=== PATIENT | female | born 1965 | race Caucasian/White ===

== ENCOUNTER 2020-10-27 21:04 | Inpatient (IN) | payer OTHER, SELFPAY ==
[2020-10-27] VITALS (9 sets, daily range): BP systolic 110–133; BP diastolic 64–74; PULSE 100–125; RESP 17–35; TEMP 38.9; O2SAT 80–94; BMI 35.5
--- NOTE | 2020-10-27 21:21 | DI.RAD.S_ITS ---
PROCEDURE: XR CHEST 1V INDICATIONS: flu-like symptoms TECHNIQUE: One view of the chest was acquired. COMPARISON: None. FINDINGS: Surgical changes and devices: None. Lungs and pleura: Bilateral patchy and confluent opacities. Mediastinum: Mediastinal contours appear normal. Heart size is enlarged. Bones and chest wall: No suspicious bony lesions. Overlying soft tissues appear unremarkable. IMPRESSION: Bilateral opacities most consistent with pneumonia Dictated by: Ayah Bales M.D. on 10/27/2020 at 22:10 Approved by: Ayah Bales M.D. on 10/27/2020 at 22:10
[2020-10-27] MEDS: SODIUM CHLORIDE 0.9% 1,000 ML 125 ML IV (21:41)
[2020-10-27] MEDS: DEXAMETHASONE 10 MG/ML VIAL 6 MG IV (21:41)
[2020-10-27 21:43] LABS: Add Manual Diff / Slide Review NO; Basophils Absolute Auto 0 /uL (0-100); Basophils Percent Auto 0.4 % (0-2); Eosinophils Absolute Auto 0 /uL (0-450); Eosinophils Percent Auto 0.1 % (2-4); Hematocrit 36.8 % (36-46); Hemoglobin 12.6 g/dL (12.0-16.0); Lymphocytes Absolute Auto 800 /uL (1100-4500); Lymphocytes Percent Auto 7.9 % (25-40); Mean Corpuscular HGB Conc 34.2 % (30-36); Mean Corpuscular Hemoglobin 29.6 PG (26-34); Mean Corpuscular Volume 86.5 fL (80-100); Monocytes Absolute Auto 500 /uL (0-900); Monocytes Percent Auto 4.6 % (3-14); Neutrophils Absolute Auto 8600 /uL (1500-7000); Platelet Count 443 X10^3/uL (150-400); Red Blood Cell Count 4.26 X10^6/uL (4.0-5.2); Red Cell Distribution Width 13.2 % (11.6-14.8); White Blood Cell Count 9.9 X10^3/uL (4.5-11.0)
[2020-10-27 21:53] LABS: D Dimer 773 ng/mL (<230)
[2020-10-27 21:54] LABS: Alanine Aminotransferase 102 IU/L (<35); Albumin 3.5 g/dL (3.5-5.0); Albumin Globulin Ratio 1.1 (1.0-2.8); Alkaline Phosphatase 94 U/L (38-126); Aspartate Aminotransferase 102 IU/L (14-36); BUN Creatinine Ratio 18.5 (6-22); Bilirubin Total 1.2 mg/dL (0.2-1.3); Blood Urea Nitrogen 12 mg/dL (7-17); Calcium 8.4 mg/dL (8.4-10.2); Carbon Dioxide 30 mmol/L (22-32); Chloride 96 mmol/L (98-107); Creatine Kinase 489 U/L (30-135); Estimated Glomerular Filt Rate > 60.0 mL/min (>60); Globulin 3.3 g/dL (1.7-4.1); Glucose 145 mg/dL (70-100); HEMOLYSIS < 15 (0-50); Lactate (Lactic Acid) 1.8 mmol/L (0.7-2.1); Potassium 3.2 mmol/L (3.4-5.1); Sodium 134 mmol/L (137-145); Total Protein 6.8 g/dL (6.3-8.2)
[2020-10-27 21:58] LABS: Lactate Dehydrogenase 1424 U/L (313-618)
[2020-10-27] MEDS: REMDESIVIR 200 MG in SODIUM CHLORIDE 0.9% 210 ML 250 ML IV (22:00)
[2020-10-27 22:06] LABS: NT-proBNP (BNP-Adult 18+) 134 pg/mL (<125); Troponin I < 0.012 ng/mL (0.01-0.034)
[2020-10-27 22:09] LABS: CKMB % Relative Index 0.4 % (1.5-5.0); Creatine Kinase MB 1.76 ng/mL (<2.37)
[2020-10-27 22:10] LABS: Procalcitonin 0.21 ng/mL (<0.5)
[2020-10-27 22:13] LABS: C-Reactive Protein Quant 25.7 mg/dL (<1.0)
[2020-10-27 22:26] LABS: HCO3 ABG 28 mmol/L (22-26); Oxygen Saturation ABG 94 % (95-100); PO2 ABG 63 mmHg (80-100); TCO2 ABG 29 mmol/L (21-31)
[2020-10-27 22:27] LABS: Fractionated Inspired Oxygen 44
--- NOTE | 2020-10-27 22:27 | ED.SOB ---
HPI - SOB/Dyspnea General Chief Complaint: Shortness of Breath/Dyspnea Stated Complaint: sick for 9 days, + covid test 8 days ago Time Seen by Provider: 10/27/20 21:21 Source: patient Mode of arrival: Wheelchair Limitations: no limitations History of Present Illness HPI Narrative: 55-year-old female nonsmoker with no reported chronic medical history, medications presents with family in the chief complaint of worsening respiratory distress over the past few days. She had been sick for a total of about 9 days and had a positive COVID test about 8 days ago. She has been gradually worsening over that time and admits to nasal congestion, runny nose, increasing shortness of breath, dry hacking cough, body aches and fever. She denies any GI symptoms such as nausea, vomiting or diarrhea. Patient is becoming more now, struggling at home and presents for evaluation. She did not receive vaccinations for COVID-19 Related Data Allergies Allergy/AdvReac Type Severity Reaction Status Date / Time No Known Drug Allergies Allergy Verified 10/27/20 21:13 Review of Systems Review of Systems Narrative: GENERAL: See HPI HEENT: See HPI RESPIRATORY: See HPI CARDIOVASCULAR: See HPI GASTROINTESTINAL: See HPI : Denies dysuria, frequency, incontinence, hematuria, urinary retention. MUSCULOSKELETAL: denies weakness, joint pain, or bony pain SKIN: Denies rash, skin lesions, or other NEUROLOGIC: Denies weakness, headache, numbness, change in speech, confusion, seizures, incoordination. PSYCHIATRIC: No concerning psychosocial issues. 12 point review of systems is negative except for those stated above Patient History Medical History (Updated 10/28/20 @ 02:17 by SU Geiger) Pre-diabetes Surgical History (Updated 10/28/20 @ 02:17 by SU Geiger) History of hysterectomy Family History (Updated 10/28/20 @ 02:18 by SU Geiger) Mother Diabetes mellitus Father Diabetes mellitus Social History household members: spouse Smoking Status: Never smoker Smoking Status: Unknown if ever smoked alcohol intake frequency: holidays/special occasions only Substance Use Type: does not use Exam Narrative Exam Narrative: GENERAL: [55] year old patient appears stated age. Well-developed patient, in moderate distress, initial pulse ox in the low 80s with evidence of respiratory distress HEAD: Atraumatic. Normocephalic. EYES: Pupils equal round and reactive. Extraocular motions intact. No scleral icterus. No injection or drainage. ENT: Nose without bleeding, purulent drainage. Throat without erythema, tonsillar hypertrophy or exudate. Airway patent. NECK: Trachea midline. Non tender CARDIOVASCULAR: Tachycardic but regular rhythm without murmurs, gallops, or rubs. RESPIRATORY: Increased work of breathing, tachycardia, crackles throughout GASTROINTESTINAL: Abdomen soft, non-tender, nondistended. EXTREMITIES: No edema or joint tenderness. BACK: Nontender without deformity or crepitance. No flank tenderness. NEURO: AOx3. SKIN: No rash or erythema of visible areas Initial Vital Signs Initial Vital Signs: Vital Signs Temperature 102.1 F H 10/27/20 21:10 Pulse Rate 125 H 10/27/20 21:10 Respiratory Rate 17 10/27/20 21:10 Blood Pressure 110/72 10/27/20 21:10 Pulse Oximetry 80 L 10/27/20 21:10 Course Course Course Narrative: COVID-GRAM Critical Illness Risk Score from [employer] on 10/28/2020 All calculations should be rechecked by clinician prior to use RESULT SUMMARY: 229 points COVID-GRAM Risk Score 97.5 % Risk of critical illness, defined by admission to the intensive care unit (ICU), invasive ventilation, or High risk Risk group INPUTS: X-ray abnormality ?> 1 = Yes Age ?> 55 years Hemoptysis ?> 0 = No Dyspnea ?> 1 = Yes Unconsciousness ?> 0 = No Number of comorbidities ?> 0 = 0 Cancer history ?> 0 = No Neutrophil-lymphocyte ratio (NLR) ?> 11 Lactate dehydrogenase ?> 1424 U/L Direct bilirubin ?> 1.2 mg/dL Orders Ordered: ED Orders 10/27/20 21:21 XR chest 1V Stat EKG-12 Lead Stat 10/27/20 21:30 C-Reactive Protein Quant Stat Complete Blood Count AUTO DIFF Stat Comprehensive Metabolic Panel Stat D Dimer Stat Ferritin Stat Lactate (Lactic Acid) Stat Lactate Dehydrogenase Stat NT-proBNP (BNP-Adult 18+) Stat Procalcitonin Stat Respiratory Panel (Film Array) Stat Troponin & CK Cardiac Panel Stat 10/27/20 21:55 Blood Culture Stat 10/27/20 22:14 Arterial Blood Gas Stat Acetaminophen (Acetaminophen 325 Mg Tablet) 650 mg PO Q6HR PRN PRN Reason: Fever Albuterol (Albuterol 2.5 Mg/3 Ml Neb (Adult)) 2.5 mg INH [id number] PRN PRN Reason: Shortness Of Breath Or Wheezing Dexamethasone (Dexamethasone 10 Mg/Ml Vial) 6 mg IV DAILY [facility] Dextrose (Dextrose 50 % In Water 25 Gm/50 Ml Syringe) 25 gm IV PRN PRN PRN Reason: Hypoglycemia Enoxaparin Sodium (Enoxaparin 40 Mg/0.4 Ml Syringe) 40 mg SUBCUT DAILY [facility] Remdesivir 100 mg/ Sodium (Chloride) 250 mls @ 250 mls/hr IV BEDTIME [facility] POTASSIUM CHLORIDE IN WATER (Potassium Cl 10 Meq/100 Ml Marilyn) 10 meq in 100 mls @ 100 mls/hr IV Q1H [facility] Stop: 10/28/20 08:14 Insulin Human Lispro (Insulin Lispro 100 Unit/Ml 3ml Vial) 0 unit SUBCUT ACHS JAYLEEN; Protocol Ipratropium [place] (Ipratropium 0.5 Mg/2.5 Ml Neb) 0.5 mg INH RTQ4HR PRN PRN Reason: Shortness Of Breath Or Wheezing Naloxone HCl (Naloxone 0.4 Mg/Ml Vial) 0.2 mg IV Q2MIN PRN PRN Reason: Opiate Reversal Pantoprazole Sodium (Pantoprazole Dr 40 Mg Tablet) 40 mg PO 0700 [facility] Potassium Chloride (Potassium Chloride 20 Meq Tab) 40 meq PO NOW ONE Stop: 10/28/20 02:15 Discontinued Medications Dexamethasone (Dexamethasone 10 Mg/Ml Vial) 6 mg IV NOW ONE Stop: 10/27/20 21:30 Last Admin: 10/27/20 21:41 Dose: 6 mg Documented by: BRIANA Sodium Chloride (Normal Saline 0.9%) 1,000 mls @ 125 mls/hr IV CONT [facility] Last Admin: 10/27/20 21:41 Dose: 125 mls/hr Documented by: BRIANA Remdesivir 100 mg/ Sodium (Chloride) 250 mls @ 250 mls/hr IV DAILY [facility] Stop: 11/04/20 21:29 Remdesivir 200 mg/ Sodium (Chloride) 250 mls @ 250 mls/hr IV NOW ONE Stop: 10/27/20 21:45 Last Infusion: 09/02/21 23:06 Dose: 0 mls/hr Documented by: Admin: 10/27/20 22:00 Dose: 250 mls/hr Documented by: BECKIE Consultations Consultation #1: discussed with hospitalist. Happy to accept Consultation #2: conference call with Tele ICU (Saravanan) Vital Signs Vital signs: Vital Signs - 8 hr 10/27/20 21:10 10/27/20 21:22 10/27/20 21:23 Temperature 102.1 F H Pulse Rate 125 H 119 H 117 H Respiratory Rate 17 Blood Pressure 110/72 130/69 Pulse Oximetry 80 L 88 L 92 10/27/20 21:30 10/27/20 21:42 10/27/20 22:00 Temperature Pulse Rate 113 H 113 H 108 H Respiratory Rate 31 H 35 H 35 H Blood Pressure 128/67 128/74 Pulse Oximetry 92 92 93 10/27/20 22:30 10/27/20 23:00 10/27/20 23:30 Temperature Pulse Rate 107 H 102 H 100 H Respiratory Rate 30 H 31 H 33 H Blood Pressure 133/64 126/66 127/66 Pulse Oximetry 89 L 94 93 MDM - SOB/Dyspnea Lab Data Result diagrams: 10/27/20 21:30 10/27/20 21:30 Labs: Lab Results 10/27/20 10/27/20 10/27/20 Range/Units 21:30 21:30 21:30 WBC 9.9 (4.5-11.0) X10^3/uL RBC 4.26 (4.0-5.2) X10^6/uL Hgb 12.6 (12.0-16.0) g/dL Hct 36.8 (36-46) % MCV 86.5 (80-100) fL MCH 29.6 (26-34) PG MCHC 34.2 (30-36) % RDW 13.2 (11.6-14.8) % Plt Count 443 H (150-400) X10^3/uL Neut % (Auto) 87.0 H (50-75) % Lymph % (Auto) 7.9 L (25-40) % [place] % (Auto) 4.6 (3-14) % Eos % (Auto) 0.1 L (2-4) % Baso % (Auto) 0.4 (0-2) % Neut # (Auto) 8600 H (2795-4482) /uL Lymph # (Auto) 800 L (5547-7380) /uL [place] # (Auto) 500 (0-900) /uL Eos # (Auto) 0 (0-450) /uL Baso # (Auto) 0 (0-100) /uL D-Dimer 773 H (<230) ng/mL ABG pH (7.35-7.45) ABG pCO2 (35-45) mmHg ABG pO2 (80-100) mmHg ABG HCO3 (22-26) mmol/L ABG Total CO2 (21-31) mmol/L ABG O2 Saturation (95-100) % ABG Base Excess (-2-2) mmol/L FiO2 Sodium 134 L (137-145) mmol/L Potassium 3.2 L (3.4-5.1) mmol/L Chloride 96 L (98-107) mmol/L Carbon Dioxide 30 (22-32) mmol/L BUN 12 (7-17) mg/dL Creatinine 0.65 (0.52-1.04) mg/dL Estimated GFR > 60.0 (>60) mL/min BUN/Creatinine Ratio 18.5 (6-22) Glucose 145 H (70-100) mg/dL Lactate (0.7-2.1) mmol/L Calcium 8.4 (8.4-10.2) mg/dL Ferritin 741 H (11-264) ng/mL Total Bilirubin 1.2 (0.2-1.3) mg/dL AST 102 H (14-36) IU/L ALT 102 H (<35) IU/L Alkaline Phosphatase 94 (38-126) U/L Lactate Dehydrogenase 1424 H (313-618) U/L Total Creatine Kinase 489 H (30-135) U/L CK-MB (CK-2) 1.76 (<2.37) ng/mL CK-MB (CK-2) Rel Index 0.4 L (1.5-5.0) % Troponin I < 0.012 (0.01-0.034) ng/mL C-Reactive Protein 25.7 H (<1.0) mg/dL NT-Pro-B Natriuret Pep 134 H (<125) pg/mL Total Protein 6.8 (6.3-8.2) g/dL Albumin 3.5 (3.5-5.0) g/dL Globulin 3.3 (1.7-4.1) g/dL Albumin/Globulin Ratio 1.1 (1.0-2.8) Procalcitonin 0.21 (<0.5) ng/mL Chlamy pneumoniae PCR (Not Detect) Adenovirus (PCR) (Not Detect) B. pertussis DNA (PCR) (Not Detecte) B.parapertussis DNA PCR (Not Detecte) Coronavirus OC43 (PCR) (Not Detect) Coronavirus HKU1 (PCR) (Not Detect) Coronavirus 229E (PCR) (Not Detect) SARS-CoV-2 (PCR) (Not Detecte) Coronavirus NL63 (PCR) (Not Detect) Human Metapneumovir PCR (Not Detect) Influenza Type A (PCR) (Not Detect) Influenza Type B (PCR) (Not Detect) M. pneumoniae (PCR) (Not Detect) Parainfluenza 1 (PCR) (Not Detect) Parainfluenza 2 (PCR) (Not Detect) Parainfluenza 3 (PCR) (Not Detect) Parainfluenza 4 (PCR) (Not Detect) RSV (PCR) (Not Detect) Entero/Rhino (PCR) (Not Detect) 10/27/20 10/27/20 10/27/20 Range/Units 21:30 21:30 22:14 WBC (4.5-11.0) X10^3/uL RBC (4.0-5.2) X10^6/uL Hgb (12.0-16.0) g/dL Hct (36-46) % MCV (80-100) fL MCH (26-34) PG MCHC (30-36) % RDW (11.6-14.8) % Plt Count (150-400) X10^3/uL Neut % (Auto) (50-75) % Lymph % (Auto) (25-40) % [place] % (Auto) (3-14) % Eos % (Auto) (2-4) % Baso % (Auto) (0-2) % Neut # (Auto) (3672-9528) /uL Lymph # (Auto) (3421-0030) /uL [place] # (Auto) (0-900) /uL Eos # (Auto) (0-450) /uL Baso # (Auto) (0-100) /uL D-Dimer (<230) ng/mL ABG pH 7.50 H (7.35-7.45) ABG pCO2 36.0 (35-45) mmHg ABG pO2 63 L (80-100) mmHg ABG HCO3 28 H (22-26) mmol/L ABG Total CO2 29 (21-31) mmol/L ABG O2 Saturation 94 L (95-100) % ABG Base Excess 5.0 H (-2-2) mmol/L FiO2 44 Sodium (137-145) mmol/L Potassium (3.4-5.1) mmol/L Chloride (98-107) mmol/L Carbon Dioxide (22-32) mmol/L BUN (7-17) mg/dL Creatinine (0.52-1.04) mg/dL Estimated GFR (>60) mL/min BUN/Creatinine Ratio (6-22) Glucose (70-100) mg/dL Lactate 1.8 (0.7-2.1) mmol/L Calcium (8.4-10.2) mg/dL Ferritin (11-264) ng/mL Total Bilirubin (0.2-1.3) mg/dL AST (14-36) IU/L ALT (<35) IU/L Alkaline Phosphatase (38-126) U/L Lactate Dehydrogenase (313-618) U/L Total Creatine Kinase (30-135) U/L CK-MB (CK-2) (<2.37) ng/mL CK-MB (CK-2) Rel Index (1.5-5.0) % Troponin I (0.01-0.034) ng/mL C-Reactive Protein (<1.0) mg/dL NT-Pro-B Natriuret Pep (<125) pg/mL Total Protein (6.3-8.2) g/dL Albumin (3.5-5.0) g/dL Globulin (1.7-4.1) g/dL Albumin/Globulin Ratio (1.0-2.8) Procalcitonin (<0.5) ng/mL Chlamy pneumoniae PCR Not detected (Not Detect) Adenovirus (PCR) Not detected (Not Detect) B. pertussis DNA (PCR) Not detected (Not Detecte) B.parapertussis DNA PCR Not detected (Not Detecte) Coronavirus OC43 (PCR) Not detected (Not Detect) Coronavirus HKU1 (PCR) Not detected (Not Detect) Coronavirus 229E (PCR) Not detected (Not Detect) SARS-CoV-2 (PCR) Detected H (Not Detecte) Coronavirus NL63 (PCR) Not detected (Not Detect) Human Metapneumovir PCR Not detected (Not Detect) Influenza Type A (PCR) Not detected (Not Detect) Influenza Type B (PCR) Not detected (Not Detect) M. pneumoniae (PCR) Not detected (Not Detect) Parainfluenza 1 (PCR) Not detected (Not Detect) Parainfluenza 2 (PCR) Not detected (Not Detect) Parainfluenza 3 (PCR) Not detected (Not Detect) Parainfluenza 4 (PCR) Not detected (Not Detect) RSV (PCR) Not detected (Not Detect) Entero/Rhino (PCR) Not detected (Not Detect) Imaging Data Chest x-ray: Radiologist's Impression: [place] [address] XRay Report Signed Patient: Virgen Roberts MR#: [id number] : 1965 Acct:[id number] Age/Sex: 55 / F Date of Service: 10/27/20 Loc: Accession Number: [id number] ?? Procedure: XR chest 1V Ordering Provider: Walt Herrera D.O. PROCEDURE:? XR CHEST 1V ? INDICATIONS:? flu-like symptoms ? TECHNIQUE:? One view of the chest was acquired.? ? COMPARISON:? None. ? FINDINGS:? ? Surgical changes and devices:? None.? ? Lungs and pleura:? Bilateral patchy and confluent opacities. ? Mediastinum:? Mediastinal contours appear normal.? Heart size is enlarged. ? Bones and chest wall:? No suspicious bony lesions.? Overlying soft tissues appear unremarkable.? ? IMPRESSION:? Bilateral opacities most consistent with pneumonia ? ? Dictated by: Ayah Bales M.D. on 10/27/2020 at 22:10 ? ? Approved by: Ayah Bales M.D. on 10/27/2020 at 22:10 ? Discharge Plan Departure Admit Date/Time: 10/27/20 23:49 Admit Provider: Lissett Zuniga
[2020-10-27 22:28] LABS: Ferritin 741 ng/mL (11-264)
--- NOTE | 2020-10-27 22:45 | PC.NURSE ---
PT laying in bed, not talking to anyone, spo2 88% on 6L. switched patient to non rebreather at 15L. Spo2 maintaining at 94%
[2020-10-27 23:21] LABS: Adenovirus Not Detected (Not Detect)
[2020-10-27 23:22] LABS: B. parapertussis Not Detected (Not Detecte); Bordetella pertussis Not Detected (Not Detecte); Chlamydophila pneumoniae Not Detected (Not Detect); Coronavirus 229E Not Detected (Not Detect); Coronavirus HKU1 Not Detected (Not Detect); Coronavirus NL 63 Not Detected (Not Detect); Coronavirus OC43 Not Detected (Not Detect); Human Metapneumovirus Not Detected (Not Detect); Human Rhinovirus/Enterovirus Not Detected (Not Detect); Influenza A Not Detected (Not Detect); Influenza B Not Detected (Not Detect); Mycoplasma pneumoniae Not Detected (Not Detect); Parainfluenza Virus 1 Not Detected (Not Detect); Parainfluenza Virus 2 Not Detected (Not Detect); Parainfluenza Virus 3 Not Detected (Not Detect); Parainfluenza Virus 4 Not Detected (Not Detect); Respiratory Syncytial Virus Not Detected (Not Detect); SARS- CoV-2 Detected (Not Detecte)
[2020-10-28] VITALS (63 sets, daily range): BP systolic 110–138; BP diastolic 62–82; PULSE 69–105; RESP 9–45; TEMP 36.1–37.3; O2SAT 84–99; BMI 35.5
--- NOTE | 2020-10-28 01:42 | P.TELICUCN_ITS ---
History of Present Illness Consult details Chief complaint: sick for 9 days, + covid test 8 days ago :: This patient was seen via real time interactive two-way audiovisual telecommunication. Narrative: 55 y.o. female with no significant PMHx, unvaccinated against COVID- 19 who came into ED with SOB and cough. Symptoms started 9 days ago; had positive test 8 days ago. Risk factors = BMI of 35; no known T2DM history or tobacco abuse. ABG on FiO2 of 44% was 7.50/36/63/28/94%. Was o 15L/min NRB upon ICU arrival but now on 55 L/min HFNC and 94% FiO2. [facility] Social History household members: spouse Smoking Status: Never smoker Exam Vital Signs (past 8 hours): - 10/27/20 21:10 10/27/20 21:22 10/27/20 21:23 Temperature 102.1 F H Pulse Rate 125 H 119 H 117 H Respiratory Rate 17 Blood Pressure 110/72 130/69 Pulse Oximetry 80 L 88 L 92 10/27/20 21:30 10/27/20 21:42 10/27/20 22:00 Temperature Pulse Rate 113 H 113 H 108 H Respiratory Rate 31 H 35 H 35 H Blood Pressure 128/67 128/74 Pulse Oximetry 92 92 93 10/27/20 22:30 10/27/20 23:00 10/28/20 01:16 Temperature 99.1 F Pulse Rate 107 H 102 H 104 H Respiratory Rate 30 H 31 H 34 H Blood Pressure 133/64 126/66 117/72 Pulse Oximetry 89 L 94 93 Fraction of Inspired Oxygen 90 Oxygen Delivery Method Heated High Flow Oxygen Flow Rate 50 Const General: other (obese woman who is coughing and self-proned) Resp Effort & Inspection: tachypneic (mildly in mid 20s-low 30s) Objective Imaging Chest x-ray: My impression: Reviewed independently Labs Result Diagrams: 10/27/20 21:30 10/27/20 21:30 Labs: Laboratory Results - last 24 hr 10/27/20 10/27/20 10/27/20 21:30 21:30 21:30 WBC 9.9 RBC 4.26 Hgb 12.6 Hct 36.8 MCV 86.5 MCH 29.6 MCHC 34.2 RDW 13.2 Plt Count 443 H Neut % (Auto) 87.0 H Lymph % (Auto) 7.9 L [place] % (Auto) 4.6 Eos % (Auto) 0.1 L Baso % (Auto) 0.4 Neut # (Auto) 8600 H Lymph # (Auto) 800 L [place] # (Auto) 500 Eos # (Auto) 0 Baso # (Auto) 0 D-Dimer 773 H ABG pH ABG pCO2 ABG pO2 ABG HCO3 ABG Total CO2 ABG O2 Saturation ABG Base Excess FiO2 Sodium 134 L Potassium 3.2 L Chloride 96 L Carbon Dioxide 30 BUN 12 Creatinine 0.65 Estimated GFR > 60.0 BUN/Creatinine Ratio 18.5 Glucose 145 H Lactate Calcium 8.4 Ferritin 741 H Total Bilirubin 1.2 AST 102 H ALT 102 H Alkaline Phosphatase 94 Lactate Dehydrogenase 1424 H Total Creatine Kinase 489 H CK-MB (CK-2) 1.76 CK-MB (CK-2) Rel Index 0.4 L Troponin I < 0.012 C-Reactive Protein 25.7 H NT-Pro-B Natriuret Pep 134 H Total Protein 6.8 Albumin 3.5 Globulin 3.3 Albumin/Globulin Ratio 1.1 Procalcitonin 0.21 Chlamy pneumoniae PCR Adenovirus (PCR) B. pertussis DNA (PCR) B.parapertussis DNA PCR Coronavirus OC43 (PCR) Coronavirus HKU1 (PCR) Coronavirus 229E (PCR) SARS-CoV-2 (PCR) Coronavirus NL63 (PCR) Human Metapneumovir PCR Influenza Type A (PCR) Influenza Type B (PCR) M. pneumoniae (PCR) Parainfluenza 1 (PCR) Parainfluenza 2 (PCR) Parainfluenza 3 (PCR) Parainfluenza 4 (PCR) RSV (PCR) Entero/Rhino (PCR) 10/27/20 10/27/20 10/27/20 21:30 21:30 22:14 WBC RBC Hgb Hct MCV MCH MCHC RDW Plt Count Neut % (Auto) Lymph % (Auto) [place] % (Auto) Eos % (Auto) Baso % (Auto) Neut # (Auto) Lymph # (Auto) [place] # (Auto) Eos # (Auto) Baso # (Auto) D-Dimer ABG pH 7.50 H ABG pCO2 36.0 ABG pO2 63 L ABG HCO3 28 H ABG Total CO2 29 ABG O2 Saturation 94 L ABG Base Excess 5.0 H FiO2 44 Sodium Potassium Chloride Carbon Dioxide BUN Creatinine Estimated GFR BUN/Creatinine Ratio Glucose Lactate 1.8 Calcium Ferritin Total Bilirubin AST ALT Alkaline Phosphatase Lactate Dehydrogenase Total Creatine Kinase CK-MB (CK-2) CK-MB (CK-2) Rel Index Troponin I C-Reactive Protein NT-Pro-B Natriuret Pep Total Protein Albumin Globulin Albumin/Globulin Ratio Procalcitonin Chlamy pneumoniae PCR Not detected Adenovirus (PCR) Not detected B. pertussis DNA (PCR) Not detected B.parapertussis DNA PCR Not detected Coronavirus OC43 (PCR) Not detected Coronavirus HKU1 (PCR) Not detected Coronavirus 229E (PCR) Not detected SARS-CoV-2 (PCR) Detected H Coronavirus NL63 (PCR) Not detected Human Metapneumovir PCR Not detected Influenza Type A (PCR) Not detected Influenza Type B (PCR) Not detected M. pneumoniae (PCR) Not detected Parainfluenza 1 (PCR) Not detected Parainfluenza 2 (PCR) Not detected Parainfluenza 3 (PCR) Not detected Parainfluenza 4 (PCR) Not detected RSV (PCR) Not detected Entero/Rhino (PCR) Not detected Assessment & Plan Assessment and plan (1) Acute respiratory failure with hypoxemia: Status: Acute (2) Acute respiratory failure due to COVID-19: Status: Acute Plan: -Continue dexamethasone 6 mg IV daily, remdesivir and immunologic -Continue self-proning -O2 saturation >=88% is acceptable as long as patient appears comfortable and RR average < ~ 30 -Would not use NIPPV as this typically results in large transpulmonary pressures which increase lung injury. If she cannot oxygenate with HFNC, she should be intubated. If she is intubated, I would place CVC and arterial line at the earliest opportunity -Would use enoxaparin 40 mg SUB q12H for VTE chemoprophylaxis given combination of body habitus and COVID-19 pneumonia COVID-19 COVID-19 status: Positive Time Spent With Patient Critical Care time: I spent a total of 35 minutes of critical care time on this patient's care today; this time is exclusive of procedural time.
--- NOTE | 2020-10-28 02:08 | P.HP_ITS ---
History of Present Illness History of Present Illness Date Patient Seen: 10/28/20 Time Patient Seen: 00:05 Chief complaint: Sick for 10 days, + covid test 8 days ago Narrative: Virgen Roberts is a 55-year-old female with pre diabetes presented with a 10 day history of cough, shortness of breath, overall weakness which has worsened over the past several days, fevers, and labored breathing. She denies having a productive cough but has been wheezing, denies fever chills, she does have a history of seasonal allergies for which she takes Zyrtec 4, she is had a runny nose, chest congestion, no sore throat. She denies any chest pain. Patient's was apparently positive with COVID-19 and they recently returned from [place] for some sort of family event and 9 people contracted COVID-19. 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 She continues to be hesitant about whether not she wants to have it. The patient was reported in the ED to be tachypneic and tachycardic with an oxygen saturation in the 80s on room air. She was placed on a non rebreather mask and was saturating in the high 90s. Per the ED provider the chest x-ray indicated bilateral infiltrates. Patient's T-max was 102.1? and is currently 99.1, blood pressure 117/72, heart rate 104, respiratory rate 34, oxygen saturation of 98% on 50 liters/minute with an FiO2 of 90 she weighs 99.79 kg with a BMI of 35.5. CBC is essentially within normal limits, she has a slightly elevated platelet count of 443, lymphopenia, she does have a left shift of 8600, D-dimer was 773, she has a respiratory alkalosis of with a pH of 7.5, ABG pCO2 w as 36, ABG PO2 was 63, bike ABG bicarb was 28, ABG O2 saturation was 94% with a base excess of 5 with an FiO2 of 44. Sodium was 134 potassium 3.2 which will be repleted, chloride 96, serum bicarb 30, renal functions within normal limits, glucose 145, ferritin 741, AST and ALT are both 102, LDH is 1424, total creatinine kinase 489, CK-MB is 0.4%, C-reactive protein 25.7, proBNP was 134, procalcitonin was negative, viral panel was negative, COVID-19 PCR was positive. Patient History Medical History (Updated 10/28/20 @ 02:17 by SU Geiger) Pre-diabetes Surgical History (Updated 10/28/20 @ 02:17 by SU Geiger) History of hysterectomy Family & Social History Family History (Updated 10/28/20 @ 02:18 by SU Geiger) Mother Diabetes mellitus Father Diabetes mellitus Social History: household members spouse Prior Living Arrangements House Safety & Behavioral: Feels Safe in Current Yes Environment Been Physically Hurt or No Threatened By a Person Suicidal Ideation Description None Suicide Plan Description No Plan Tobacco & Substance use: Smoking Status Never smoker alcohol intake frequency holiday/special occasion Substance Use Type does not use Comment: 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 Meds Home Medications and Allergies Allergies Allergy/AdvReac Type Severity Reaction Status Date / Time No Known Drug Allergies Allergy Verified 10/27/20 21:13 Review of Systems Review of Systems ROS: Yes All systems reviewed with the patient and are negative except as otherwise documented Exam Vital Signs (past 8 hours): - 10/27/20 21:10 10/27/20 21:22 10/27/20 21:23 Temperature 102.1 F H Pulse Rate 125 H 119 H 117 H Respiratory Rate 17 Blood Pressure 110/72 130/69 Pulse Oximetry 80 L 88 L 92 10/27/20 21:30 10/27/20 21:42 10/27/20 22:00 Temperature Pulse Rate 113 H 113 H 108 H Respiratory Rate 31 H 35 H 35 H Blood Pressure 128/67 128/74 Pulse Oximetry 92 92 93 10/27/20 22:30 10/27/20 23:00 10/27/20 23:30 Temperature Pulse Rate 107 H 102 H 100 H Respiratory Rate 30 H 31 H 33 H Blood Pressure 133/64 126/66 127/66 Pulse Oximetry 89 L 94 93 10/28/20 00:00 10/28/20 01:03 10/28/20 01:13 Temperature Pulse Rate 96 H 105 H 100 H Respiratory Rate 33 H 29 H Blood Pressure 115/62 Pulse Oximetry 91 93 96 10/28/20 01:16 10/28/20 01:30 Temperature 99.1 F Pulse Rate 104 H 104 H Respiratory Rate 34 H Blood Pressure 117/72 Pulse Oximetry 93 98 Fraction of Inspired Oxygen 90 Oxygen Delivery Method Non -Rebreather Oxygen Flow Rate 50 Narrative Exam Narrative: Gen: Alert, oriented, well-developed 55 y.o. female, anxious HEENT: normocephalic, atraumatic, conjunctiva clear, sclera non-icteric, oral mucosa pink and moist Neck: supple, full ROM, no JVD, trachea is midline Resp: On heated high flow, Lungs CTA, non-labored breathing CV: RRR, no murmur or rubs Abd: soft, non-tender, normoactive BTs Skin: facial flushing, no lesions or rashes, dry and intact Neuro: Alert and oriented X 4 w/no focal deficits. Speech clear and coherent. Extremities: moves all 4 extremities, is ambulatory, negative Anabel?s sign Psyche: normal mood and affect. Objective Labs Result Diagrams: 10/27/20 21:30 10/27/20 21:30 Labs: Laboratory Results - last 24 hr 10/27/20 10/27/20 10/27/20 21:30 21:30 21:30 WBC 9.9 RBC 4.26 Hgb 12.6 Hct 36.8 MCV 86.5 MCH 29.6 MCHC 34.2 RDW 13.2 Plt Count 443 H Neut % (Auto) 87.0 H Lymph % (Auto) 7.9 L Rowan % (Auto) 4.6 Eos % (Auto) 0.1 L Baso % (Auto) 0.4 Neut # (Auto) 8600 H Lymph # (Auto) 800 L Rowan # (Auto) 500 Eos # (Auto) 0 Baso # (Auto) 0 D-Dimer 773 H ABG pH ABG pCO2 ABG pO2 ABG HCO3 ABG Total CO2 ABG O2 Saturation ABG Base Excess FiO2 Sodium 134 L Potassium 3.2 L Chloride 96 L Carbon Dioxide 30 BUN 12 Creatinine 0.65 Estimated GFR > 60.0 BUN/Creatinine Ratio 18.5 Glucose 145 H Lactate Calcium 8.4 Ferritin 741 H Total Bilirubin 1.2 AST 102 H ALT 102 H Alkaline Phosphatase 94 Lactate Dehydrogenase 1424 H Total Creatine Kinase 489 H CK-MB (CK-2) 1.76 CK-MB (CK-2) Rel Index 0.4 L Troponin I < 0.012 C-Reactive Protein 25.7 H NT-Pro-B Natriuret Pep 134 H Total Protein 6.8 Albumin 3.5 Globulin 3.3 Albumin/Globulin Ratio 1.1 Procalcitonin 0.21 Chlamy pneumoniae PCR Adenovirus (PCR) B. pertussis DNA (PCR) B.parapertussis DNA PCR Coronavirus OC43 (PCR) Coronavirus HKU1 (PCR) Coronavirus 229E (PCR) SARS-CoV-2 (PCR) Coronavirus NL63 (PCR) Human Metapneumovir PCR Influenza Type A (PCR) Influenza Type B (PCR) M. pneumoniae (PCR) Parainfluenza 1 (PCR) Parainfluenza 2 (PCR) Parainfluenza 3 (PCR) Parainfluenza 4 (PCR) RSV (PCR) Entero/Rhino (PCR) 10/27/20 10/27/20 10/27/20 21:30 21:30 22:14 WBC RBC Hgb Hct MCV MCH MCHC RDW Plt Count Neut % (Auto) Lymph % (Auto) Rowan % (Auto) Eos % (Auto) Baso % (Auto) Neut # (Auto) Lymph # (Auto) Rowan # (Auto) Eos # (Auto) Baso # (Auto) D-Dimer ABG pH 7.50 H ABG pCO2 36.0 ABG pO2 63 L ABG HCO3 28 H ABG Total CO2 29 ABG O2 Saturation 94 L ABG Base Excess 5.0 H FiO2 44 Sodium Potassium Chloride Carbon Dioxide BUN Creatinine Estimated GFR BUN/Creatinine Ratio Glucose Lactate 1.8 Calcium Ferritin Total Bilirubin AST ALT Alkaline Phosphatase Lactate Dehydrogenase Total Creatine Kinase CK-MB (CK-2) CK-MB (CK-2) Rel Index Troponin I C-Reactive Protein NT-Pro-B Natriuret Pep Total Protein Albumin Globulin Albumin/Globulin Ratio Procalcitonin Chlamy pneumoniae PCR Not detected Adenovirus (PCR) Not detected B. pertussis DNA (PCR) Not detected B.parapertussis DNA PCR Not detected Coronavirus OC43 (PCR) Not detected Coronavirus HKU1 (PCR) Not detected Coronavirus 229E (PCR) Not detected SARS-CoV-2 (PCR) Detected H Coronavirus NL63 (PCR) Not detected Human Metapneumovir PCR Not detected Influenza Type A (PCR) Not detected Influenza Type B (PCR) Not detected M. pneumoniae (PCR) Not detected Parainfluenza 1 (PCR) Not detected Parainfluenza 2 (PCR) Not detected Parainfluenza 3 (PCR) Not detected Parainfluenza 4 (PCR) Not detected RSV (PCR) Not detected Entero/Rhino (PCR) Not detected Assessment & Plan Assessment & Plan narrative: Virgen arauz will be admitted for further treatment COVID-19. She is placed in the ICU due to the necessity of using heated high-flow. 1. COVID-19 Pneumonia, acute, present on admission * Patient was administered loading dose of IV Remdesevir 200 mg and dexamethasone 6 mg in the ED * Continue IV Remdesevir 100 mg and dexamethasone 6 mg the following day * Patient is initiated on Baricitinib 4 mg po daily due to high risk of accelerating oxygen support requirements. * [X] Heated high flow, FIO2 [100] [50] liters/minute, * Patient has has not had a vaccine. * Proning at least 12 hours encouraged 2. Acute respiratory failure with hypoxia and respiratory alkalosis * Recheck VBG in the morning * Consult with eICU daily * Patient's body habitus will present a challenge respiratory becker 3. Pre diabetes, elevated glucose present on admission * Anticipate this will worsen with daily steroids * Will initiate diabetic hyperglycemia protocol. 4. Hypokalemia, unknown if acute, present on admission * Patient's potassium was 3.2 * She has been given 60 mEq riders plus 40 mEq oral tablets tonight. Recheck in the morning VTE Prophylaxis: Wells risk score Enoxaparin 40 mg subQ once daily Patient is admitted to the inpatient intensive care unit due to the severity of disease, risks of further disease progression and this stay is expected to exceed 2 midnights. FEN: IV fluids: saline lock, diet: carb controlled diet, labs: CBC, C/BMP, liver enzymes, Mag, Consultants eICU care and involvement in the patient?s care is appreciated. Dispo: probable discharge to home. Code status: Full code as discussed with the patient who identifies her Jimbo Roberts as her surrogate and POA. I confirmed that the patient's advanced care plan is present, code status is determined, or surrogate decision maker is listed on the patient's medical record. I have utilized all available immediate resources to obtain, update, or review of the patient's current medications [X] The patient has current or prior documentation of the left ventricular ejection fraction (LEVF) less than 40% or moderate or severely depressed left ventricular systolic function. [X] No COVID-19 COVID-19 status: Positive Result date/Date tested (Pos, Neg/Pending): 10/28/20 Time Spent With Patient Critical Care time: I spent a total of [] minutes of critical care time on this patient's care today; this time is exclusive of procedural time. Quality VTE Deep Vein Thrombosis/Pulmonary Embolism Present on Admission: No
[2020-10-28 02:48] LABS: Hemoglobin A1C% w Est Avg Glu 6.4 % (4.0-6.0)
[2020-10-28] MEDS: POTASSIUM CHLORIDE 20 MEQ TAB 40 MEQ PO (02:49)
[2020-10-28] MEDS: POTASSIUM CHLORIDE IN WATER 10 MEQ/100 ML PIGGYBACK 100 MEQ IV (02:50)
[2020-10-28 04:38] LABS: Alanine Aminotransferase 89 IU/L (<35); Albumin Globulin Ratio 1.2 (1.0-2.8); Alkaline Phosphatase 74 U/L (38-126); Aspartate Aminotransferase 71 IU/L (14-36); Bilirubin Total 0.7 mg/dL (0.2-1.3); Bilirubin Unconjugated 0.4 mg/dL (0.0-1.1); Globulin 2.6 g/dL (1.7-4.1); HEMOLYSIS < 15 (0-50); Total Protein 5.6 g/dL (6.3-8.2)
[2020-10-28] MEDS: POTASSIUM CHLORIDE IN WATER 10 MEQ/100 ML PIGGYBACK 50 MEQ IV ×5 (05:08→13:54)
[2020-10-28 05:18] LABS: HCO3 VBG 32 mmol/L (23-28); PCO2 VBG 49.2 mmHg (45-50); PO2 VBG 27 mmHg (35-45); Total CO2 VBG 34 mmol/L (24-29)
[2020-10-28 05:19] LABS: Oxygen Saturation VBG 52 % (70-75); pH VBG 7.43 (7.33-7.43)
--- NOTE | 2020-10-28 06:02 | PC.NURSE ---
0500- Patient assisted to the bedside commode. Patient desaturates to the mid 70's with any activity. Patient oxygen increased to 100%. Patient took a very long time to rebound to target SP02 of 88%. Approximately 20 minutes to regain adequate saturations. Patient did prone for a little over 2 hours and is agreeable to prone as needed. IV potassium infusing. Rate had to be lowered as the vein was burning. Patient states she is not in any appreciable pain. Will monitor closely.
[2020-10-28] MEDS: DEXAMETHASONE 10 MG/ML VIAL 6 MG IV (10:05)
[2020-10-28] MEDS: BARICITINIB 2 MG TABLET 4 MG PO (10:05)
--- NOTE | 2020-10-28 12:02 | PC.NURSE ---
Addendum entered by Safia Garduno R.N. 10/28/20 14:52: Midline placed 20 g LORE K riders completing at half rate with IVF to dilute. Pt remains on 55L and 90% Fio2, with significant delay/recovery after movement. Original Note: Am shift Start of shift Pt is on heated high flow NC @ 55L and 90% Fio2, at rest patient sits at 88-90. With any movement, bed mobility, repositioning, Pt drops down into 78-82% and the recovery time is substantial, approx 15-20 min. This make patient anxious and has caused tearful exchanges with this RN this am. Pt needs IV access, PIV is very fragile, midline ordered, to be placed later today. Macdonald order obtained, multiple attempts to place, by multiple RNs. Pt reports hysterectomy and previous bladder surgery, anatomically challenging. 14g macdonald in.
[2020-10-28] MEDS: ENOXAPARIN 40 MG/0.4 ML SYRINGE SUBCUT ×2 (13:53→20:57)
[2020-10-28] MEDS: PANTOPRAZOLE DR 40 MG TABLET PO (13:53)
[2020-10-28] MEDS: BENZONATATE 100 MG CAPSULE PO (17:05)
[2020-10-28] MEDS: INSULIN LISPRO 100 UNIT/ML 3ML VIAL SUBCUT (20:30)
--- NOTE | 2020-10-28 20:53 | PM.EVENT ---
Event Note Date Patient Seen: 10/28/20 Time Patient Seen: 20:54 Event Note: TELEINTENSIVIST MULTIDISCIPLINARY ROUNDS NOTE Patient seen via interactive real-time audiovisual telecommunication. HFNC FiO2 is down to 80%; flow remains at 55 L/min. Patient is self-proning for her COVID-19 pneumonia/ARDS. Glycemic control adequate; SUP in place; VTE chemoprophylaxis will be changed to enoxaparin 40 mg SUBQ BID. Plans discussed with TC, RT, and RN.
[2020-10-28] MEDS: REMDESIVIR 100 MG in SODIUM CHLORIDE 0.9% 230 ML 250 ML IV (20:57)
--- NOTE | 2020-10-28 22:38 | PC.NURSE ---
1530 - Patient on heated high flow NC at 55L and 90% Fio2, when patient is proning her sats are high 90s but when patient is supine her sats are high 80s, low 90s. Discussed with patient the importance of proning, patient verbalizes understanding. Patient denies any pain. Mao draining clear xiang urine. Izzy ritter added for patient PRN to help with cough. 0 - Patients heated high flow NC lowered to 55L and 80% FiO2. Patient tolerating well at this time. 2029 - After tele ICU bedside rounds this RN discussed again with patient the importance of proning as much as she is able to, patient understands and says she will try to prone throughout the night.
[2020-10-29] VITALS (57 sets, daily range): BP systolic 114–136; BP diastolic 63–82; PULSE 62–101; RESP 6–40; TEMP 36.6–37.1; O2SAT 82–99
[2020-10-29 05:11] LABS: HCO3 VBG 30 mmol/L (23-28); Oxygen Saturation VBG 63 % (70-75); PCO2 VBG 43.7 mmHg (45-50); PO2 VBG 32 mmHg (35-45); Total CO2 VBG 31 mmol/L (24-29)
[2020-10-29 05:12] LABS: pH VBG 7.44 (7.33-7.43)
[2020-10-29 05:25] LABS: Add Manual Diff / Slide Review NO; Basophils Absolute Auto 0 /uL (0-100); Basophils Percent Auto 0.1 % (0-2); Eosinophils Absolute Auto 0 /uL (0-450); Eosinophils Percent Auto 0.1 % (2-4); Hematocrit 37.1 % (36-46); Hemoglobin 12.3 g/dL (12.0-16.0); Lymphocytes Absolute Auto 1400 /uL (1100-4500); Lymphocytes Percent Auto 10.6 % (25-40); Mean Corpuscular HGB Conc 33.1 % (30-36); Mean Corpuscular Hemoglobin 29.2 PG (26-34); Mean Corpuscular Volume 88.1 fL (80-100); Monocytes Absolute Auto 700 /uL (0-900); Monocytes Percent Auto 5.1 % (3-14); Neutrophils Absolute Auto 11300 /uL (1500-7000); Neutrophils Percent Auto 84.1 % (50-75); Platelet Count 546 X10^3/uL (150-400); Red Blood Cell Count 4.21 X10^6/uL (4.0-5.2); Red Cell Distribution Width 13.2 % (11.6-14.8); White Blood Cell Count 13.4 X10^3/uL (4.5-11.0)
[2020-10-29 05:27] LABS: Alanine Aminotransferase 86 IU/L (<35); Albumin 3.1 g/dL (3.5-5.0); Alkaline Phosphatase 72 U/L (38-126); Aspartate Aminotransferase 51 IU/L (14-36); Bilirubin Total 0.4 mg/dL (0.2-1.3); Bilirubin Unconjugated 0.2 mg/dL (0.0-1.1); Blood Urea Nitrogen 16 mg/dL (7-17); Carbon Dioxide 30 mmol/L (22-32); Chloride 105 mmol/L (98-107); Estimated Glomerular Filt Rate > 60.0 mL/min (>60); Globulin 3.2 g/dL (1.7-4.1); Glucose 172 mg/dL (70-100); HEMOLYSIS < 15 (0-50); Magnesium 2.6 mg/dL (1.6-2.3); Potassium 4.3 mmol/L (3.4-5.1); Sodium 140 mmol/L (137-145); Total Protein 6.3 g/dL (6.3-8.2)
[2020-10-29] MEDS: ENOXAPARIN 40 MG/0.4 ML SYRINGE SUBCUT ×2 (08:28→20:17)
[2020-10-29] MEDS: PANTOPRAZOLE DR 40 MG TABLET PO (08:28)
[2020-10-29] MEDS: DEXAMETHASONE 10 MG/ML VIAL 6 MG IV (08:28)
[2020-10-29] MEDS: BARICITINIB 2 MG TABLET 4 MG PO (08:33)
--- NOTE | 2020-10-29 08:49 | PC.NURSE ---
Addendum entered by Safia Garduno R.N. 10/29/20 12:01: Continued with same care, Pt ate slightly better than yesterday, APAP and Tessalon héctor given for discomfort and cough. No adjustment to HHFNC settings at this time. Dry non productive cough with consequential desat and slow recovery. Side laying for much of morning. Original Note: AM shift Pt reports good sleep overnight and 7 hours of proning. Assisted to sit upright for meal. Sop2 prior to movement 95% on 55L 85%, after self repositioning, Spo2 82-84% with continued extended recovery. Assisting Pt is fatigued with any activity at all. Lungs are quite dim. Proning most of the noc, Pt sitting up in bed and states she is feeling more comfortable this AM than she felt yesterday. Afebrile.
[2020-10-29] MEDS: BENZONATATE 100 MG CAPSULE PO ×2 (09:03→20:18)
[2020-10-29] MEDS: ACETAMINOPHEN 325 MG TABLET 650 MG PO ×2 (09:03→20:17)
--- NOTE | 2020-10-29 11:29 | CM.IDA ---
Initial DCP Assessment Note Pt is a 55 yo female, resident of [place], arrives w/increasing symptoms at home of COVID-19 pneumonia. PCP: Not listed Payer: [facility] Reviewed chart, pt discussed in multidisciplinary rounds this morning. Patient continues on heated high flow, proning this morning, no significant improvement at this time. According to RN Safia, patient remains very fragile, quite ill, very fatigued with any movement. Patient indp at baseline, works for the [employer]. No needs expected from DC planning team today. Will follow closely in case any DC needs or concerns arise as medical POC unfolds. SHEILA Vuong Discharge Planning/Care Management CM Discharge Assessment Start: 10/29/20 10:49 Freq: Status: Active Protocol: Document 10/29/20 10:49 HEATH (Rec: 10/29/20 11:28 HEATH [id number]) Discharge Planning Assessment Assigned Morning Babysitter SHEILA Vuong DPOA/Assigned Designee Name Jimbo Roberts, spouse Contact Information [phone] Advance Directives? No History Provided By Patient,Medical Record Prior Living Arrangements House Household Members spouse Type of transporation used prior to Drives own vehicle admit Independent with ADL's Yes Is patient alert and oriented? Yes Barriers to Discharge Yes Comment medical POC Discharge Plan Home Transportation Arrangement Family Referrals Initiated None needed Additional Comment At this time
[2020-10-29] MEDS: INSULIN LISPRO 100 UNIT/ML 3ML VIAL SUBCUT ×3 (12:13→21:24)
--- NOTE | 2020-10-29 14:07 | P.PN_ITS ---
Subjective Subjective Date Patient Seen: 10/29/20 Time Patient Seen: 14:07 Interval history: 55 year old female admitted with COVID pneumonia and acute hypoxic respiratory failure. Still desats with minimal activity. No change in symptoms. Still with cough, dyspnea. Exam Vital Signs (past 8 hours): - 10/29/20 08:00 10/29/20 08:45 10/29/20 11:20 Temperature 97.8 F Pulse Rate 93 H 90 91 H Respiratory Rate 19 20 24 Blood Pressure 136/72 Pulse Oximetry 92 88 L 89 L 10/29/20 12:00 Temperature 97.8 F Pulse Rate 92 H Respiratory Rate 19 Blood Pressure 116/69 Pulse Oximetry 93 Fraction of Inspired Oxygen 0.88 Oxygen Delivery Method High Flow Nasal Cannula,Heated High Flow Oxygen Flow Rate 55 Narrative Exam Narrative: Gen: Alert, oriented, well-developed 55 y.o. ? female, obese with BMI 35.7 no acute distress HEENT: normocephalic, atraumatic, conjunctiva clear, sclera non-icteric, oral mucosa pink and moist Neck: supple, full ROM, no JVD, trachea is midline Resp: On heated high flow, no wheezing, bibasilar crackles, limited by disposable stethoscope. CV: RRR, no murmur or rubs Abd: soft, non-tender, non-distended Skin:no lesions or rashes, dry and intact Neuro: Alert and oriented X 4 w/no focal deficits. Speech clear and coherent. Extremities: moves all 4 extremities, is ambulatory, negative Anabel?s sign Psyche: normal mood and affect. Objective Labs Result Diagrams: 10/29/20 05:00 10/29/20 05:00 Labs: Laboratory Results - last 24 hr 10/29/20 10/29/20 10/29/20 04:59 05:00 05:00 WBC 13.4 H RBC 4.21 Hgb 12.3 Hct 37.1 MCV 88.1 MCH 29.2 MCHC 33.1 RDW 13.2 Plt Count 546 H Neut % (Auto) 84.1 H Lymph % (Auto) 10.6 L Orange % (Auto) 5.1 Eos % (Auto) 0.1 L Baso % (Auto) 0.1 Neut # (Auto) 63143 H Lymph # (Auto) 1400 Orange # (Auto) 700 Eos # (Auto) 0 Baso # (Auto) 0 VBG pH 7.44 H VBG pCO2 43.7 L VBG pO2 32 L VBG HCO3 30 H VBG Total CO2 31 H VBG O2 Saturation 63 L VBG Base Excess 6.0 H Sodium 140 Potassium 4.3 Chloride 105 Carbon Dioxide 30 BUN 16 Creatinine 0.50 L Estimated GFR > 60.0 BUN/Creatinine Ratio 32.0 H Glucose 172 H Calcium 9.0 Magnesium 2.6 H Total Bilirubin 0.4 Conjugated Bilirubin 0.0 Unconjugated Bilirubin 0.2 AST 51 H ALT 86 H Alkaline Phosphatase 72 Total Protein 6.3 Albumin 3.1 L Globulin 3.2 Albumin/Globulin Ratio 1.0 PFSH Medical History (Updated 10/28/20 @ 06:09 by Walt Herrera DO) Pre-diabetes Surgical History (Updated 10/28/20 @ 02:17 by SU Geiger) History of hysterectomy Family History (Updated 10/28/20 @ 02:18 by SU Geiger) Mother Diabetes mellitus Father Diabetes mellitus Social History household members: spouse Smoking Status: Never smoker Assessment & Plan Assessment & Plan narrative: 55 F with PMH of pre-diabetes and obesity admitted with acute hypoxic respiratory failure secondary to COVID-19 pneumoniia. 1. COVID-19 Pneumonia, acute, present on admission * Patient was administered loading dose of IV Remdesevir 200 mg and dexamethasone 6 mg in the ED * Continue? IV Remdesevir 100 mg and dexamethasone 6 mg the following day * Continue Baricitinib 4 mg po daily due to high risk of accelerating oxygen zuleta pport requirements. * continue to wean O2 as tolerated. Prone as much as possible. 2. Acute respiratory failure with hypoxia - continue management as noted above. 3. Pre diabetes, elevated glucose present on admission * Anticipate this will worsen with daily steroids * currently on sliding scale insulin 4. Hypokalemia, acute, present on admission, resolved * Patient's potassium was 3.2, improved with repletion. Code status: Full code as discussed with the patient who identifies her Jimbo Roberts as her surrogate and POA. Dispo: possible discharge home, timing uncertain I confirmed that the patient's advanced care plan is present, code status is determined, or surrogate decision maker is listed on the patient's medical record. I have utilized all available immediate resources to obtain, update, or review of the patient's current medications Time Spent With Patient Critical Care time: I spent a total of [] minutes of critical care time on this patient's care today; this time is exclusive of procedural time. Quality VTE Deep Vein Thrombosis/Pulmonary Embolism Present on Admission: No
--- NOTE | 2020-10-29 20:11 | P.EN_ITS ---
Event Note Date Patient Seen: 10/29/20 Time Patient Seen: 19:01 Event Note: TELEINTENSIVIST MULTIDISCIPLINARY ROUNDS NOTE Patient seen via interactive two-way audiovisual telecommunication. HFNC FiO2 down to 60%; remains on 55 L/min. Appeared comfortable on camera. Plans d iscussed with TC Efrain, RT and RN --> continue present management consisting of dexamethasone, remdesivir, baracitinib, high-dose enoxaparin VTE chemoprophylaxis; patient is improving slowly.
[2020-10-29] MEDS: REMDESIVIR 100 MG in SODIUM CHLORIDE 0.9% 230 ML 250 ML IV (20:16)
[2020-10-30] VITALS (22 sets, daily range): BP systolic 76–142; BP diastolic 47–76; PULSE 66–104; RESP 0–32; TEMP 36.6–36.8; O2SAT 86–98
[2020-10-30] MEDS: ACETAMINOPHEN 325 MG TABLET 650 MG PO ×3 (03:12→21:13)
[2020-10-30] MEDS: OXYCODONE IR 5 MG TABLET PO (03:12)
[2020-10-30 05:32] LABS: Add Manual Diff / Slide Review NO; Basophils Absolute Auto 0 /uL (0-100); Basophils Percent Auto 0.2 % (0-2); Eosinophils Absolute Auto 200 /uL (0-450); Eosinophils Percent Auto 1.4 % (2-4); Hematocrit 34.8 % (36-46); Hemoglobin 11.5 g/dL (12.0-16.0); Lymphocytes Absolute Auto 1500 /uL (1100-4500); Lymphocytes Percent Auto 11.5 % (25-40); Mean Corpuscular HGB Conc 33.1 % (30-36); Mean Corpuscular Hemoglobin 29.1 PG (26-34); Monocytes Absolute Auto 300 /uL (0-900); Monocytes Percent Auto 2.5 % (3-14); Neutrophils Absolute Auto 11000 /uL (1500-7000); Neutrophils Percent Auto 84.4 % (50-75); Platelet Count 584 X10^3/uL (150-400); Red Blood Cell Count 3.96 X10^6/uL (4.0-5.2); Red Cell Distribution Width 13.3 % (11.6-14.8)
[2020-10-30 05:36] LABS: HCO3 VBG 32 mmol/L (23-28); PCO2 VBG 45.6 mmHg (45-50); PO2 VBG 35 mmHg (35-45); Total CO2 VBG 34 mmol/L (24-29); pH VBG 7.46 (7.33-7.43)
[2020-10-30 05:37] LABS: Oxygen Saturation VBG 70 % (70-75)
[2020-10-30 05:42] LABS: BUN Creatinine Ratio 32.7 (6-22); Blood Urea Nitrogen 16 mg/dL (7-17); Calcium 8.4 mg/dL (8.4-10.2); Carbon Dioxide 30 mmol/L (22-32); Chloride 106 mmol/L (98-107); Estimated Glomerular Filt Rate > 60.0 mL/min (>60); Glucose 110 mg/dL (70-100); HEMOLYSIS 35 (0-50); Magnesium 2.2 mg/dL (1.6-2.3); Sodium 139 mmol/L (137-145)
[2020-10-30] MEDS: BARICITINIB 2 MG TABLET 4 MG PO (08:11)
[2020-10-30] MEDS: DEXAMETHASONE 10 MG/ML VIAL 6 MG IV (08:11)
[2020-10-30] MEDS: PANTOPRAZOLE DR 40 MG TABLET PO (08:11)
[2020-10-30] MEDS: ENOXAPARIN 40 MG/0.4 ML SYRINGE SUBCUT ×2 (08:12→21:12)
--- NOTE | 2020-10-30 10:39 | PC.NURSE ---
Addendum entered by Safia Garduno R.N. 10/30/20 14:30: Pt to prone position after lunch. Declined pain control prior, discussed being able to relax and tolerate prone position as best as possible. I know I know, I have to Pill on bedside table, I dont need to take that, it's bitter Education provided about antivirals and taking medication as ordered unless actually not tolerating well, A/e, ect. Pt agitated and takes remaining med with complaints. Assisted to Prone @ 1345 Pt continue to tolerate decreased O2 HHFNC, 50L and 60% Fio2 with Spo2 94% with proning. Original Note: This AM Pt is tearful when asked about breathing status. HHFNC is reduced to 55L and 60% FIO2 With improved Spo2 while at rest/proning. Pt is sitting up, in bed, for meal this am. Tearful, I know I need tummy time, but I just can't right now Denies pain at present But continues with tears I am scared this is a lot to take in, I am really sick, what if I ? Update to Dr Melgar, monitor and prone as tolerated. Pt resting quietly at present.
--- NOTE | 2020-10-30 14:15 | P.PN_ITS ---
Subjective Subjective Date Patient Seen: 10/30/20 Time Patient Seen: 14:15 Interval history: 55 year old female admitted with COVID pneumonia and acute hypoxic respiratory failure. Still desats with minimal activity but feels as if she is recovering slightly quicker today. Dealing with neck pain while proning. Cough improved. No chest pain, nausea, or diarrhea. Tolerating a diet. Exam Vital Signs (past 8 hours): - 10/30/20 08:00 10/30/20 10:50 10/30/20 12:00 Temperature 98.0 F 98.0 F Pulse Rate 95 H 101 H 99 H Respiratory Rate 20 28 H 19 Blood Pressure 121/70 121/70 122/65 Pulse Oximetry 86 L 92 92 Fraction of Inspired Oxygen 0.66 Oxygen Delivery Method High Flow Nasal Cannula,Heated High Flow Oxygen Flow Rate 55 Narrative Exam Narrative: Gen: Alert, oriented, well-developed 55 y.o. ? female, obese with BMI 35.7 no acute distress HEENT: normocephalic, atraumatic, conjunctiva clear, sclera non-icteric, oral mucosa pink and moist Neck: supple, full ROM, no JVD, trachea is midline Resp: On heated high flow, no wheezing, bibasilar crackles, limited by disposable stethoscope. CV: RRR, no murmur or rubs Abd: soft, non-tender, non-distended Skin:no lesions or rashes, dry and intact Neuro: Alert and oriented X 4 w/no focal deficits. Speech clear and coherent. Extremities: moves all 4 extremities, is ambulatory, negative Anabel?s sign Psyche: normal mood and affect. Objective Labs Result Diagrams: 10/30/20 05:00 10/30/20 05:00 Labs: Laboratory Results - last 24 hr 10/30/20 10/30/20 10/30/20 05:00 05:00 05:20 WBC 13.0 H RBC 3.96 L Hgb 11.5 L Hct 34.8 L MCV 88.0 MCH 29.1 MCHC 33.1 RDW 13.3 Plt Count 584 H Neut % (Auto) 84.4 H Lymph % (Auto) 11.5 L [place] % (Auto) 2.5 L Eos % (Auto) 1.4 L Baso % (Auto) 0.2 Neut # (Auto) 17744 H Lymph # (Auto) 1500 [place] # (Auto) 300 Eos # (Auto) 200 Baso # (Auto) 0 VBG pH 7.46 H VBG pCO2 45.6 VBG pO2 35 VBG HCO3 32 H VBG Total CO2 34 H VBG O2 Saturation 70 VBG Base Excess 9.0 H Sodium 139 Potassium 4.0 Chloride 106 Carbon Dioxide 30 BUN 16 Creatinine 0.49 L Estimated GFR > 60.0 BUN/Creatinine Ratio 32.7 H Glucose 110 H Calcium 8.4 Magnesium 2.2 PFSH Medical History (Updated 10/28/20 @ 06:09 by Walt Herrera DO) Pre-diabetes Surgical History (Updated 10/28/20 @ 02:17 by SU Geiger) History of hysterectomy Family History (Updated 10/28/20 @ 02:18 by SU Geiger) Mother Diabetes mellitus Father Diabetes mellitus Social History household members: spouse Smoking Status: Never smoker Assessment & Plan Assessment & Plan narrative: 55 F with PMH of pre-diabetes and obesity admitted with acute hypoxic respiratory failure secondary to COVID-19 pneumoniia. 1. COVID-19 Pneumonia, acute, present on admission * Patient was administered loading dose of IV Remdesevir 200 mg and dexamethasone 6 mg in the ED * Continue? IV Remdesevir 100 mg and dexamethasone 6 mg * Continue Baricitinib 4 mg po daily due to high risk of accelerating oxygen support requirements. * continue to wean O2 as tolerated. Prone as much as possible. * somewhat improved oxygenation today, though still requires 55L at approx 70% fio2. Improved with proning. * Leukocytosis likely related to steroids, continue to monitor. 2. Acute respiratory failure with hypoxia ?- continue management as noted above. 3. Pre diabetes, elevated glucose present on admission * sugars intermittently high, but generally controlled on steroids * currently on sliding scale insulin, will continue. 4. Hypokalemia, acute, present on admission, resolved * Patient's potassium was 3.2, improved with repletion. Code status: Full code as discussed with the patient who identifies her Jimbo Roberts as her surrogate and POA. Dispo: possible discharge home, timing uncertain I confirmed that the patient's advanced care plan is present, code status is determined, or surrogate decision maker is listed on the patient's medical record. I have utilized all available immediate resources to obtain, update, or review of the patient's current medications Time Spent With Patient Critical Care time: I spent a total of [] minutes of critical care time on this patient's care today; this time is exclusive of procedural time. Quality VTE Deep Vein Thrombosis/Pulmonary Embolism Present on Admission: No
[2020-10-30] MEDS: INSULIN LISPRO 100 UNIT/ML 3ML VIAL SUBCUT (17:14)
--- NOTE | 2020-10-30 20:26 | PM.EVENT ---
Event Note Date Patient Seen: 10/30/20 Time Patient Seen: 20:22 Event Note: TELEINTENSIVIST MULTIDISCIPLINARY ROUNDS NOTE Patient seen via interactive two-way audiovisual telecommunication.? HFNC FiO2 down to @ 66%; remains on 55 L/min.? Appeared comfortable on camera.? Plans discussed with TC Efrain RT and RN --> continue present management consisting of dexamethasone, remdesivir, baracitinib, high-dose enoxaparin VTE chemoprophylaxis; patient is status quo compared to yesterday.
[2020-10-30] MEDS: MELATONIN 3 MG TABLET 6 MG PO (21:13)
[2020-10-30] MEDS: REMDESIVIR 100 MG in SODIUM CHLORIDE 0.9% 230 ML 250 ML IV (21:13)
[2020-10-30] MEDS: BENZONATATE 100 MG CAPSULE PO (21:13)
[2020-10-31] VITALS (16 sets, daily range): BP systolic 108–130; BP diastolic 55–75; PULSE 64–103; RESP 16–24; TEMP 36.6–36.8; O2SAT 92–98
[2020-10-31] MEDS: SODIUM CHLORIDE 0.9% FLUSH 10 ML IV ×3 (05:06→22:32)
[2020-10-31 05:50] LABS: BUN Creatinine Ratio 27.7 (6-22); Blood Urea Nitrogen 13 mg/dL (7-17); Calcium 8.3 mg/dL (8.4-10.2); Carbon Dioxide 30 mmol/L (22-32); Chloride 105 mmol/L (98-107); Estimated Glomerular Filt Rate > 60.0 mL/min (>60); Glucose 109 mg/dL (70-100); HEMOLYSIS < 15 (0-50); Magnesium 2.2 mg/dL (1.6-2.3); Potassium 4.2 mmol/L (3.4-5.1); Sodium 138 mmol/L (137-145)
[2020-10-31 05:56] LABS: Add Manual Diff / Slide Review NO; Basophils Absolute Auto 0 /uL (0-100); Basophils Percent Auto 0.1 % (0-2); Eosinophils Absolute Auto 300 /uL (0-450); Eosinophils Percent Auto 3.9 % (2-4); Hematocrit 34.5 % (36-46); Hemoglobin 11.6 g/dL (12.0-16.0); Lymphocytes Absolute Auto 1400 /uL (1100-4500); Lymphocytes Percent Auto 16.8 % (25-40); Mean Corpuscular HGB Conc 33.6 % (30-36); Mean Corpuscular Hemoglobin 29.4 PG (26-34); Mean Corpuscular Volume 87.6 fL (80-100); Monocytes Absolute Auto 400 /uL (0-900); Monocytes Percent Auto 5.5 % (3-14); Neutrophils Absolute Auto 6000 /uL (1500-7000); Neutrophils Percent Auto 73.7 % (50-75); Platelet Count 596 X10^3/uL (150-400); Red Blood Cell Count 3.93 X10^6/uL (4.0-5.2); Red Cell Distribution Width 13.5 % (11.6-14.8); White Blood Cell Count 8.1 X10^3/uL (4.5-11.0)
--- NOTE | 2020-10-31 06:38 | PC.NURSE ---
Tap Puller Note-Patient states she slept better mostly side-lying, HHF 55L/65% FIO2, SpO2 92-99%, RR 20-30, occasional loose cough, lung sounds clearing. Incontinent loose stool.
[2020-10-31] MEDS: PANTOPRAZOLE DR 40 MG TABLET PO (06:45)
[2020-10-31] MEDS: DEXAMETHASONE 10 MG/ML VIAL 6 MG IV (08:11)
[2020-10-31] MEDS: BARICITINIB 2 MG TABLET 4 MG PO (08:11)
[2020-10-31] MEDS: ENOXAPARIN 40 MG/0.4 ML SYRINGE SUBCUT ×2 (08:11→20:45)
[2020-10-31] MEDS: INSULIN LISPRO 100 UNIT/ML 3ML VIAL SUBCUT ×2 (12:25→17:22)
--- NOTE | 2020-10-31 14:06 | PC.NURSE ---
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 SpO2 down to 87% and HR up to 110s when placed back on monitor - recovered quickly. Weaned down to 55L and 50% FiO2 by RT this shift. Currently proning with SpO2 upper 90s. Persistent non-productive cough. Call light within reach, using appropriately to make needs known.
--- NOTE | 2020-10-31 15:29 | P.PN_ITS ---
Subjective Subjective Date Patient Seen: 10/31/20 Time Patient Seen: 15:29 Interval history: 55 year old female admitted with COVID pneumonia and acute hypoxic respiratory failure. Still desats with minimal activity but feels as if she is recovering slightly quicker today. Dealing with neck pain while proning. Cough improved. No chest pain, nausea, or diarrhea. Tolerating a diet. Exam Vital Signs (past 8 hours): - 10/31/20 08:00 10/31/20 09:30 10/31/20 11:30 Temperature 98.2 F Pulse Rate 86 Respiratory Rate 20 20 Blood Pressure 117/70 Pulse Oximetry 92 94 97 10/31/20 11:40 10/31/20 12:00 10/31/20 13:50 Temperature 98.3 F Pulse Rate 87 Respiratory Rate 18 19 24 Blood Pressure 111/69 Pulse Oximetry 93 94 92 Fraction of Inspired Oxygen 0.56 Oxygen Delivery Method Heated High Flow Oxygen Flow Rate 55 Narrative Exam Narrative: Gen: Alert, oriented, well-developed 55 y.o. ? female, obese with BMI 35 no acute distress. Somewhat improved color today. HEENT: normocephalic, atraumatic, conjunctiva clear, sclera non-icteric, oral mucosa pink and moist Neck: supple, full ROM, no JVD, trachea is midline Resp: On heated high flow, no wheezing, bibasilar crackles, limited by disposable stethoscope. CV: RRR, no murmur or rubs Abd: soft, non-tender, non-distended Skin:no lesions or rashes, dry and intact Neuro: Alert and oriented X 4 w/no focal deficits. Speech clear and coherent. Extremities: No tenderness or joint effusions Psyche: normal mood and affect. Objective Labs Result Diagrams: 10/31/20 05:00 10/31/20 05:00 Labs: Laboratory Results - last 24 hr 10/31/20 10/31/20 05:00 05:00 WBC 8.1 RBC 3.93 L Hgb 11.6 L Hct 34.5 L MCV 87.6 MCH 29.4 MCHC 33.6 RDW 13.5 Plt Count 596 H Neut % (Auto) 73.7 Lymph % (Auto) 16.8 L [place] % (Auto) 5.5 Eos % (Auto) 3.9 Baso % (Auto) 0.1 Neut # (Auto) 6000 Lymph # (Auto) 1400 [place] # (Auto) 400 Eos # (Auto) 300 Baso # (Auto) 0 Sodium 138 Potassium 4.2 Chloride 105 Carbon Dioxide 30 BUN 13 Creatinine 0.47 L Estimated GFR > 60.0 BUN/Creatinine Ratio 27.7 H Glucose 109 H Calcium 8.3 L Magnesium 2.2 PFSH Medical History (Updated 10/28/20 @ 06:09 by Walt Herrera DO) Pre-diabetes Surgical History (Updated 10/28/20 @ 02:17 by SU Geiger) History of hysterectomy Family History (Updated 10/28/20 @ 02:18 by SU Geiger) Mother Diabetes mellitus Father Diabetes mellitus Social History household members: spouse Smoking Status: Never smoker Assessment & Plan Assessment & Plan narrative: 55 F with PMH of pre-diabetes and obesity admitted with acute hypoxic respiratory failure secondary to COVID-19 pneumoniia. 1. COVID-19 Pneumonia, acute, present on admission * Patient was administered loading dose of IV Remdesevir 200 mg and dexamethasone 6 mg in the ED * Continue? IV Remdesevir 100 mg and dexamethasone 6 mg * Continue Baricitinib 4 mg po daily due to high risk of accelerating oxygen support requirements. * continue to wean O2 as tolerated. Prone as much as possible. * somewhat improved oxygenation today, though still requires 55L at approx 55% fio2. Improved with proning. * Leukocytosis likely related to steroids, now resolved. 2. Acute respiratory failure with hypoxia ?- continue management as noted above. 3. Pre diabetes, elevated glucose present on admission * sugars intermittently high, but generally controlled on steroids * currently on sliding scale insulin, will continue. 4. Hypokalemia, acute, present on admission, resolved * Patient's potassium was 3.2, improved with repletion. Code status: Full code as discussed with the patient who identifies her Jimbo Roberts as her surrogate and POA. Dispo: possible discharge home, timing uncertain I confirmed that the patient's advanced care plan is present, code status is determined, or surrogate decision maker is listed on the patient's medical record. I have utilized all available immediate resources to obtain, update, or review of the patient's current medications Time Spent With Patient Critical Care time: I spent a total of [] minutes of critical care time on this patient's care today; this time is exclusive of procedural time. Quality VTE Deep Vein Thrombosis/Pulmonary Embolism Present on Admission: No
[2020-10-31] MEDS: MELATONIN 3 MG TABLET 6 MG PO (20:45)
[2020-10-31] MEDS: REMDESIVIR 100 MG in SODIUM CHLORIDE 0.9% 230 ML 250 ML IV (20:46)
[2020-10-31] MEDS: BENZONATATE 100 MG CAPSULE PO (22:30)
[2020-11-01] VITALS (15 sets, daily range): BP systolic 106–136; BP diastolic 59–78; PULSE 65–105; RESP 16–24; TEMP 36.3–36.8; O2SAT 90–97
[2020-11-01] MEDS: PANTOPRAZOLE DR 40 MG TABLET PO (06:11)
[2020-11-01] MEDS: SODIUM CHLORIDE 0.9% FLUSH 10 ML IV ×2 (08:19→20:51)
[2020-11-01] MEDS: DEXAMETHASONE 10 MG/ML VIAL 6 MG IV (08:19)
[2020-11-01] MEDS: ENOXAPARIN 40 MG/0.4 ML SYRINGE SUBCUT ×2 (08:19→20:50)
[2020-11-01] MEDS: BARICITINIB 2 MG TABLET 4 MG PO (08:22)
[2020-11-01] MEDS: BENZONATATE 100 MG CAPSULE PO ×2 (08:32→20:50)
--- NOTE | 2020-11-01 11:12 | P.PN_ITS ---
Subjective Subjective Date Patient Seen: 11/01/20 Time Patient Seen: 08:00 Interval history: Today she is feeling improved. She is still coughing. She is short of breath with activity and with coughing. However she is feeling improved, but still on high flow oxgyen. Exam Vital Signs (past 8 hours): - 11/01/20 03:57 11/01/20 05:56 11/01/20 08:00 Temperature 97.8 F Pulse Rate 86 65 101 H Respiratory Rate 22 21 20 Blood Pressure 110/66 114/59 L Pulse Oximetry 95 95 94 11/01/20 08:12 Temperature Pulse Rate 88 Respiratory Rate 16 Blood Pressure 136/74 Pulse Oximetry 90 L Fraction of Inspired Oxygen 50 Oxygen Delivery Method Heated High Flow Oxygen Flow Rate 45 Narrative Exam Narrative: Gen: no acute distresss HEENT: normocephalic, atraumatic, conjunctiva clear, sclera non-icteric, oral mucosa pink and moist Neck: supple, full ROM, no JVD, trachea is midline Resp: On heated high flow, no wheezing, bibasilar crackles CV: RRR, no murmur or rubs Abd: soft, non-tender, non-distended Skin:no lesions or rashes, dry and intact Neuro: Alert and oriented X 4 w/no focal deficits. Speech clear and coherent. Extremities: No tenderness or joint effusions Psyche: normal mood and affect. Objective Labs Result Diagrams: 10/31/20 05:00 10/31/20 05:00 [facility] Medical History (Updated 10/28/20 @ 06:09 by Walt Herrera DO) Pre-diabetes Surgical History (Updated 10/28/20 @ 02:17 by SU Geiger) History of hysterectomy Family History (Updated 10/28/20 @ 02:18 by SU Geiger) Mother Diabetes mellitus Father Diabetes mellitus Social History household members: spouse Smoking Status: Never smoker Assessment & Plan Assessment & Plan narrative: 55 F with PMH of pre-diabetes and obesity admitted with acute hypoxic respiratory failure secondary to COVID-19 pneumoniia. 1. COVID-19 Pneumonia, acute, present on admission -Patient was administered loading dose of IV Remdesevir 200 mg and dexamethasone 6 mg in the ED -Continue IV Remdesevir 100 mg and dexamethasone 6 mg -Continue Baricitinib 4 mg po daily due to high risk of accelerating oxygen support requirements. -continue to wean O2 as tolerated. Prone as much as possible. -somewhat improved oxygenation today, though still requires 45L at approx 50% fio2. Improved with proning. -Leukocytosis likely related to steroids, now resolved. 2. Acute respiratory failure with hypoxia - continue management as noted above. 3. Pre diabetes, elevated glucose present on admission sugars intermittently high, but generally controlled on steroids currently on sliding scale insulin, will continue. 4. Hypokalemia, acute, present on admission, resolved Patient's potassium was 3.2, improved with repletion. Code status: Full code as discussed with the patient who identifies her Jimbo Roberts as her surrogate and POA. Dispo: possible discharge home, timing uncertain I confirmed that the patient's advanced care plan is present, code status is determined, or surrogate decision maker is listed on the patient's medical record. I have utilized all available immediate resources to obtain, update, or review of the patient's current medications Time Spent With Patient Critical Care time: I spent a total of [] minutes of critical care time on this patient's care today; this time is exclusive of procedural time. Quality VTE Deep Vein Thrombosis/Pulmonary Embolism Present on Admission: No
[2020-11-01] MEDS: INSULIN LISPRO 100 UNIT/ML 3ML VIAL SUBCUT ×3 (12:36→20:52)
--- NOTE | 2020-11-01 20:19 | PM.EVENT ---
Event Note Event Note: Multidisciplinary round completed. Admitted for acute hypoxemia respiratory failure secondary to COVID pneumonia. HFNC weaned down to 4 liters NC. Will continue supportive care and monitor closely in the ICU. CAse discussed with ABDIEL Barakat MD Critical Care Medicine
[2020-11-01] MEDS: MELATONIN 3 MG TABLET 6 MG PO (20:50)
[2020-11-01] MEDS: REMDESIVIR 100 MG in SODIUM CHLORIDE 0.9% 230 ML 250 ML IV (20:51)
[2020-11-02 01:15] VITALS: BP 116/66; PULSE 74; RESP 20; TEMP 36.8; O2SAT 92
[2020-11-02] MEDS: PANTOPRAZOLE DR 40 MG TABLET PO (06:18)
[2020-11-02 06:30] VITALS: BP 117/76; PULSE 75; RESP 22; O2SAT 92
[2020-11-02] MEDS: ENOXAPARIN 40 MG/0.4 ML SYRINGE SUBCUT (07:58)
[2020-11-02] MEDS: DEXAMETHASONE 10 MG/ML VIAL 6 MG IV (07:58)
[2020-11-02 08:00] VITALS: BP 104/55; PULSE 80; RESP 18; TEMP 36.7; O2SAT 90
[2020-11-02] MEDS: BARICITINIB 2 MG TABLET 4 MG PO (08:00)
[2020-11-02] MEDS: BENZONATATE 100 MG CAPSULE PO (08:12)
--- NOTE | 2020-11-02 08:34 | PC.NURSE ---
Addendum entered by Safia Garduno R.N. 11/02/20 14:51: Tolerated shower, on 2-3L, Pt was a little anxious about needing more 02 with activity. Education about titration. DC order given and Patient is eager to get home. Spouse will be available to pick her up @ 1600. IV and midline removed, 2L Spo2 remains 94%. Addendum entered by Safia Garduno R.N. 11/02/20 10:35: Upgraded to floor care status, no tele Addendum entered by Safia Garduno R.N. 11/02/20 10:33: Pt is doing well this am, sitting up aggresively using IS with coughing and deep breathing. Mao removed, Spo2 94% on 3L. Will shower and see about continued weaning from O2. Original Note: AM shift Pt is A/o x4, doing well on NC with 4L o2. Able to sit up for meal. Spo2 93% while up. Pt has been proning as able, Pt is eager to DC home. Will see about Spo2 with activity today. Midline SL.
--- NOTE | 2020-11-02 09:26 | P.DS_ITS ---
History of Present Illness History of Present Illness Chief complaint: Sick for 10 days, + covid test 8 days ago Narrative: Per Lissett Zuniga: Virgen Roberts is a 55-year-old female with pre diabetes presented with a 10 day history of cough, shortness of breath, overall weakness which has worsened over the past several days, fevers, and labored breathing.? She denies having a productive cough but has been wheezing, denies fever chills, she does have a history of seasonal allergies for which she takes Zyrtec 4, she is had a runny nose, chest congestion, no sore throat.? She denies any chest pain.? Patient's was apparently positive with COVID-19 and they recently returned from [place] for some sort of family event and 9 people contracted COVID-19.? 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 She continues to be hesitant about whether not she wants to have it. The patient was reported in the ED to be tachypneic and tachycardic with an oxygen saturation in the 80s on room air.? She was placed on a non rebreather mask and was saturating in the high 90s.? Per the ED provider the chest x-ray indicated bilateral infiltrates.? Patient's T-max was 102.1? and is currently 99.1, blood pressure 117/72, heart rate 104, respiratory rate 34, oxygen satur ation of 98% on 50 liters/minute with an FiO2 of 90 she weighs 99.79 kg with a BMI of 35.5.? CBC is essentially within normal limits, she has a slightly elevated platelet count of 443, lymphopenia, she does have a left shift of 8600, D-dimer was 773, she has a respiratory alkalosis of with a pH of 7.5, ABG pCO2 was 36, ABG PO2 was 63, bike ABG bicarb was 28, ABG O2 saturation was 94% with a base excess of 5 with an FiO2 of 44.? Sodium was 134 potassium 3.2 which will be repleted, chloride 96, serum bicarb 30, renal functions within normal limits, glucose 145, ferritin 741, AST and ALT are both 102, LDH is 1424, total creatinine kinase 489, CK-MB is 0.4%, C-reactive protein 25.7, proBNP was 134, procalcitonin was negative, viral panel was negative, COVID-19 PCR was positive. Discharge Providers Provider Date of admission: 10/27/20 23:49 Discharge Date: 11/02/20 Discharge provider: Yonatan Santos MD Summary Hospital Course Discharge Diagnosis: 1. Acute respiratory failure with hypoxemia from COVID pneumonia 2. Obesity, BMI 35.4 3. Prediabetes 4. Hypokalemia, resolved Hospital Course: Ms. Roberts was admitted with respiratory failure from COVID pneumonia. She was given IV remdesivir, dexamethasone, baracitinib. She did require high flow nasal cannula. With treatment she did improve and on day of discharge she was satting >90% on 3L of oxygen, which she will be discharged on. She was eager to discharge home. She was advised to keep isolated for at least the next week. She was encourage to get the COVID vaccine, which she will for work. She should follow up with her PCP within one week. Exam Vital Signs (past 8 hours): Fraction of Inspired Oxygen 0.5 Oxygen Delivery Method Nasal Cannula Oxygen Flow Rate 4 Narrative Exam Narrative: Gen: no acute distresss HEENT: normocephalic, atraumatic, conjunctiva clear, sclera non-icteric, oral mucosa pink and moist PULM: clear bilaterally, coughing CV: RRR, no murmur or rubs Abd: soft, non-tender, non-distended Skin:no lesions or rashes, dry and intact Extremities:? No tenderness or joint effusions Psyche: normal mood and affect. Objective Labs Result Diagrams: 10/31/20 05:00 10/31/20 05:00 [facility] Medical History (Updated 10/28/20 @ 06:09 by Walt Herrera DO) Pre-diabetes Surgical History (Updated 10/28/20 @ 02:17 by SU Geiger) History of hysterectomy Family History (Updated 10/28/20 @ 02:18 by SU Geiger) Mother Diabetes mellitus Father Diabetes mellitus Social History household members: spouse Smoking Status: Never smoker Discharge Plan Discharge Plan Patient Disposition: Home Provider Discharge Comment: Ms. Roberts was admitted with COVID pneumonia and needed significant oxygen to help with her breathing. She improved slowly. However on day of discharge her oxygen saturation was greater than 90% while using 3L of oxygen. Her shortness of breath was significantly better, and she was feeling ready to go home. She will be discharged on 3L of oxygen via nasal cannula to help with his breathing. She was recommended to isolate to avoid infecting others. And she was agreeable to get the COVID vaccine when she is asymptomatic. Discharge orders & Medications Prescriptions: Continued cetirizine [Zyrtec] 10 mg Tablet 10 mg PO DAILY PRN (Reason: Allergic Symptoms) RF: 0 estradiol 0.0375 mg/24 hr patch weekly 1 patch transdermal WEEKLY RF: 0 Diet/Activity/Treatments Diet: Regular Diet comment: As Tolerated Activity: Be sure not to over exert yourself. Using oxygen at home, you may turn up as needed for activity. Currently you have been on 2L for most of the day. Up to 4 with activity is just fine. Oxygen: Sending a bottle home with patient Visit Report/Discharge Packet Instructions: Home Oxygen Therapy, DI for Oxygen Therapy -- Adult, DI for COVID-19 (Suspected or Confirmed ), How to Care for Someone with COVID-19, About the COVID-19 Vaccine Quality VTE Deep Vein Thrombosis/Pulmonary Embolism Present on Admission: No
[2020-11-02 12:00] VITALS: BP 101/57; PULSE 92; RESP 18; TEMP 37.1; O2SAT 88
== END 2020-11-02 16:00 | disposition home or self-care (01) | DRG 177 ==
LOC: ED 21:21 → ICU 10-28 00:23
PROVIDERS: Admitting Provider Nurse Practitioner Family; Emergency Provider Emergency Medicine; Referring Provider Emergency Medicine; Visit Provider Nurse Practitioner Family
DX: U07.1 COVID-19 (principal); J12.82 Pneumonia due to coronavirus disease 2019; J96.01 Acute respiratory failure with hypoxia; E87.3 Alkalosis; E87.6 Hypokalemia; R73.03 Prediabetes; E66.9 Obesity, unspecified; Z68.35 Body mass index [BMI] 35.0-35.9, adult
CPT/HCPCS: 36415; 36592; 36600; 71045; 80048; 80053; 80076; 82550; 82553; 82728; 82805; 82962; 83036; 83605; 83615; 83735; 83880; 84145; 84484; 85025; 85379; 86140; 87040; 87633; 87797; 93005; 96365; 96375; 99285; J1100; J1642; J1650; J1815

== ENCOUNTER → 2021-01-06 14:09 | Outpatient (CLI) | payer OTHER, SELFPAY ==
[2020-10-28 01:07] VITALS: BMI 35.5
--- NOTE | 2021-01-06 | DI.US.S_ITS ---
LIMITED ULTRASOUND OF LEFT BREAST AND AXILLA: 01/06/2021 CLINICAL: Patient returns today to evaluate two focal asymmetries in the left breast. No prior exams were available for comparison. Color flow and real-time ultrasound of the left breast 1-2 o'clock, 6-7 o'clock, and axilla regions were performed. Simon scale images of the real-time examination were reviewed. There is a 3.9 cm x 4.1 cm x 2.4 cm oval partially solid mass in the left breast at 6 o'clock posterior depth 7 cm from the nipple. This oval partially solid mass is hypoechoic with a well-defined boundary, internal echoes, and posterior acoustic enhancement. This correlates as palpated and with mammography findings. There are related calcifications. Color flow imaging demonstrates that there is vascularity present. There also is a 0.5 cm round cyst in the left breast at 2 o'clock anterior depth 2 cm from the nipple. This round cyst is hypoechoic with posterior acoustic enhancement. This correlates with mammography findings. Color flow imaging demonstrates that there is no vascularity present. Additionally, there is a benign 1.8 cm x 1.2 cm x 1 cm oval cyst in the left breast at 1 o'clock middle depth 3 cm from the nipple. This oval cyst is anechoic with an abrupt boundary and posterior acoustic enhancement. This correlates with mammography findings. Color flow imaging demonstrates that there is no vascularity present. IMPRESSION: SUSPICIOUS OF MALIGNANCY The 3.9 cm x 4.1 cm x 2.4 cm oval partially solid mass in the left breast at 6 o'clock posterior depth is suspicious of malignancy. An ultrasound guided biopsy is recommended. The 0.5 cm round cyst in the left breast at 2 o'clock anterior depth is consistent with a complicated cyst and is probably benign. 6 month follow up ultrasound is recommended to assess stability. The 1.8 cm x 1.2 cm x 1 cm oval cyst in the left breast at 1 o'clock middle depth is benign. Findings and recommendations were discussed with the patient by Dr. Alexy Zuniga in person at time of exam. This exam was interpreted at Station ID: [id number]. Electronically Signed By: Jordana nicolas/:01/06/2021 16:04:09 copy to: Emmy Jc letter sent: Biopsy Required Ultrasound BI-RADS: 4 Suspicious for malignancy
--- NOTE | 2021-01-06 | DI.MG.S_ITS ---
BILATERAL DIGITAL DIAGNOSTIC MAMMOGRAM 3D/2D: 01/06/2021 CLINICAL: Left breast lump. Comparison is made to exams dated: 08/03/2014 mammogram, 07/26/2014 mammogram - [facility], and 04/02/2006 mammogram - [facility]. The tissue of both breasts is heterogeneously dense. This may lower the sensitivity of mammography. There is a new 4.7 cm oval mass with an obscured and circumscribed margin in the left breast at 8 o'clock middle depth. This corresponds to the patient's palpable abnormality. There also is a new 1.7 cm oval mass with a circumscribed and microlobulated margin in the left breast at 2 o'clock anterior depth. This is seen in additional views. No other significant masses, calcifications, or other findings are seen in either breast. IMPRESSION: INCOMPLETE: NEEDS ADDITIONAL IMAGING EVALUATION The new 4.7 cm oval mass in the left breast at 8 o'clock middle depth is indeterminate. An ultrasound is recommended. The new 1.7 cm oval mass in the left breast at 2 o'clock anterior depth is indeterminate. An ultrasound is recommended. Ultrasound is recommended for full evaluation of these areas. This was performed immediately following this exam. This exam was interpreted at Station ID: [id number]. NOTE: For mammograms, a report in lay terms will be sent to the patient. Approximately 15% of breast malignancies will not be visualized mammographically. In the management of a palpable breast mass, a negative mammogram must not discourage biopsy of a clinically suspicious lesion. Electronically Signed By: Jordana nicolas/:01/06/2021 14:51:44 copy to: Emmy Jc ACR BI-RADS Category 0: Incomplete [id number]
== END ==
PROVIDERS: PCP Family Medicine; Referring Provider Family Medicine; Visit Provider Family Medicine
DX: R92.8 Other abnormal and inconclusive findings on diagnostic imaging of breast (principal); N63.25 Unspecified lump in the left breast, overlapping quadrants; N60.02 Solitary cyst of left breast
CPT/HCPCS: 76642; 77066; G0279

== ENCOUNTER → 2021-01-30 08:59 | Outpatient (CLI) | payer OTHER, SELFPAY ==
[2020-10-28 01:07] VITALS: BMI 35.5
--- NOTE | 2021-01-30 | PATH_ITS ---
[facility] Accession Number: [id number] . 01 Material submitted: . breast - LEFT BREAST MASS 6:00 4CMFN . 02 Diagnosis: Left Breast Mass, 6 o'clock, 4 cm from Nipple, Needle Core Biopsies: A few detached fragments of high-grade mammary carcinoma in a background of necrosis and reactive stroma; see Cancer Case Summary. . Cancer Case Summary (Invasive Carcinoma of the Breast): . Specimen Procedure: Needle biopsy. Specimen laterality: Left. Tumor Tumor site: 6 o'clock, 4 cm from nipple. Histologic type: Invasive carcinoma of no special type (ductal). Histologic Grade (Teddy histologic score) Tubular differentiation: Score 3. Nuclear pleomorphism: Score 3. Mitotic rate: Score 3. Overall grade: Grade 3. Tumor size: Greatest dimension of largest invasive focus: 1.5 mm; please see comment. Ductal Carcinoma In Situ: Not identified. Lymphovascular Invasion: Not identified. Microcalcifications: Not identified. . Breast Biomarker Studies Results: Performed on Block A1: . Estrogen Receptor (ER) Status: Positive, 20%. Average intensity of staining: Weak. Primary antibody: SP1 Progesterone Receptor (PgR) Status: Negative. Average intensity of staining: Not applicable. Primary antibody: 1E2 HER2 (by immunohistochemistry): Negative (1+). . Cold ischemia and fixation times: Meets requirements in the latest version of the ASCO/CAP guidelines. Prognostic marker testing performed on block A1. . TECHNICAL NOTE: The scoring criteria for breast biomarkers by immunohistochemistry is based on the current ASCO/CAP guidelines (Liliane et al, Arch Pathol Lab Med 2010:134(6):907-922 / Samira DIOR et al, Arch Pathol Lab Med 2014;138(2):241-256). Deparaffinized sections of formalin fixed tissue (along with appropriate positive controls) are incubated with the above antibody (s). Using the automated [place] stainer, tissue is incubated with the designated antibody* which is then localized by a non-biotin, dual polymer detection system. The external controls are reviewed for appropriate reactivity and found to be adequate. Results on the target call population are indicated above. These tests have not been validated on decalcified tissue. * This test was developed and its performance characteristics determined by [employer]. It has not been cleared or approved by the U.S. Food and Drug Administration. The FDA has determined that such clearance or approval is not necessary. This test is used for clinical purposes. It should not be regarded as investigational or for research. [facility]LY [facility], 1928–1983 02/02/2021 1704 Local . 02 Comment: The largest viable fragment of carcinoma measures 1.5 mm (on ROGELIO immunostain). That said, necrotic fragments of tissue, likely representing nonviable carcinoma, span 4 mm in greatest linear extent on glass slide. . As part of routine quality control director, Dr. Coates has reviewed this case and agrees with the diagnosis of high grade mammary carcinoma. The finding of malignancy was reported to Dr. Lopez via RN Sofia by Dr. Vivar on 02/01/2021. . 02 Electronically signed: . Bladimir Vivar MD, PhD, Pathologist NPI- [id number] . 01 Gross description: . Received one formalin-filled container, labeled with the patient's name and designated left breast mass 6 o'clock 4 cm FN. The specimen is received with plastic filter in container, sample loose in container and consists of multiple fragments of light pink-molina to molina-mattson tissue which range in size from less than 0.1 cm to 0.3 x 0.3 x 0.2 cm. All fragments are totally submitted in one cassette. Possible collection date and time per requisition: 01/30/2021 at 9:52. Total fixation time: Approximately 18 hours. ([id number]) /LUI 01/31/2021 0342 Local . 02 Microscopic: . Sections are predominantly of necrotic tissue with a few fragments of reactive stroma. A few small fragments of cohesive epithelioid cells with a solid growth pattern are present. The malignant cell population shows no tubule formation, marked nuclear pleomorphism, and mitotic activity is readily identified. No intact benign breast parenchyma is seen. To further classify the malignant cells, a panel of immunohistochemical stains is performed (each with an appropriately positive control). The malignant cells are positive for ROGELIO (bolaños cytokeratin) and HUNG-3 (variable) immunoreactivity. The malignant cells are negative for other markers of specific differentiation including breast (mammaglobin, GCDFP), neuroendocrine (synatophysin), or neural/melanoma (S100). The overall features are consistent with a breast primary adenocarcinoma despite the lack of mammaglobin or GCDFP immunoreactivity. The malignant cells are also diffusely positive for E-cadherin, most consistent with a ductal type carcinoma. Prognostic markers are also performed, with the malignant cells variably expressing estrogen receptor (20 percent, weak) and negative for immunoreactivity for progesterone receptor. The carcinoma is negative (1+) for HER-2 overexpression. . * This test was developed and its performance characteristics determined by [facility]. It has not been cleared or approved by the U.S. Food and Drug Administration. The FDA has determined that such clearance or approval is not necessary. This test is used for clinical purposes. It should not be regarded as investigational or for research. . 02 Pathologist provided ICD-10: C50.912 . 02 CPT . 099631, P20377, R95322, 186830 Performed at: 01 [facility] Cytology [address] [id number] MD Zeus Dawn MD Phone: [phone] Performed at: [address] [place] [id number] [place], [place] [id number] MD Jolly Coates MD Phone: [phone]
--- NOTE | 2021-01-30 | DI.MG.S_ITS ---
UNILATERAL LEFT DIGITAL DIAGNOSTIC MAMMOGRAM 3D/2D POST-NEEDLE BIOPSY: 01/30/2021 CLINICAL: Post clip. Comparison is made to exams dated: 01/30/2021 ultrasound biopsy, 01/06/2021 mammogram, and 08/03/2014 mammogram - Located [facility]. The tissue of left breast is heterogeneously dense. This may lower the sensitivity of mammography. There is a marker clip in the appropriate position in the left breast at 6 o'clock posterior depth. This marker clip placement is at the biopsy site. IMPRESSION: POST PROCEDURE MAMMOGRAM FOR MARKER PLACEMENT There was a successful marker clip placement in the left breast posterior depth. Future imaging is recommended as follows: 07/06/2021 follow-up left ultrasound. This exam was interpreted at Station ID: [id number]. NOTE: For mammograms, a report in lay terms will be sent to the patient. Approximately 15% of breast malignancies will not be visualized mammographically. In the management of a palpable breast mass, a negative mammogram must not discourage biopsy of a clinically suspicious lesion. Electronically Signed By: Jillian muller/yosi:01/30/2021 10:09:43 copy to: Emmy Jc ACR BI-RADS Category Post-procedure mammogram for marker placement
--- NOTE | 2021-01-30 | DI.US.S_ITS ---
PROCEDURE: US BX BREAST PERC W VAC DEVICE COMPARISON: None. INDICATIONS: LEFT BREAST LUMP FINDINGS: IMPRESSION: Dictated by: Jillian Wilson MD, PhD on 01/30/2021 at 16:27 Approved by: Jillian Wilson MD, PhD on 01/30/2021 at 16:27
--- NOTE | 2021-01-30 09:12 | DI.US.S_ITS ---
Procedure: US bx breast perc w vac device ULTRASOUND GUIDED BIOPSY LEFT BREAST USING VACUUM DEVICE WITH MARKING DEVICE INSERTED AND POST DIGITAL MAMMOGRAPHIC IMAGIN01/30/2021 CLINICAL: Left breast mass. PATIENT CONSENT: Risks (minor bleeding, infection, vasovagal reaction and repeat procedure), benefits and alternatives were explained to the patient and written informed consent was obtained. Correlation is made to exams dated: 01/06/2021 ultrasound, 01/06/2021 mammogram, 08/03/2014 mammogram, and 07/26/2014 mammogram - [facility]. An ultrasound guided biopsy using real-time ultrasound was performed for the oval mass located in the left breast at 6 o'clock posterior depth. The skin was prepped in the usual manner. Local anesthetic was administered to the access site. A skin rama was made in the breast. The abnormality was approached from the lateral aspect. A 13 gauge biopsy needle was placed adjacent to the abnormality under ultrasound guidance. Once the needle was documented to be in the correct location, three specimens were obtained using the Mammotome biopsy system. A Vision biopsy clip was inserted into the biopsy cavity. A skin closure strip was applied to the access site. Post procedure digital mammographic imaging was obtained. The specimens were sent to the laboratory for pathological analysis. IMPRESSION: ULTRASOUND GUIDED BIOPSY MALIGNANT Ultrasound guided biopsy of the mass in the left breast at 6 o'clock posterior depth was successful. Pathology indicates malignant invasive mammary carcinoma (IMC). Pathology results are concordant with imaging findings. A surgical/oncologic consultation is recommended. Continued Report - Page 2 of 2 Patient Name: HEYDI SMITH date: 1965 Sex: F Attending Physician: MARKY Indications: Date: 01/30/2021 09:54 At the request of: SONAL NEGRO Procedure: US bx breast perc w vac device There is a prominent left axillary lymph node on the prior diagnostic ultrasound 01/06/2021. The cortex is not thickened but the fatty hilum is hypoechoic centrally. Having confirmed left breast malignancy, a left axillary node biopsy should be considered. Additionally, follow-up ultrasound for the complicated cyst in the left breast at 2:00 was previously recommended in 6 months. 07/06/2021 follow-up left ultrasound. This exam was interpreted at Station ID: [id number]. Jillian Hillman M.D. [facility],slc/:02/03/2021 11:23:35 copy to: Emmy Jc
== END ==
PROVIDERS: PCP Family Medicine; Referring Provider Family Medicine; Visit Provider Family Medicine
DX: C50.812 Malignant neoplasm of overlapping sites of left female breast (principal); Z17.0 Estrogen receptor positive status [ER+]
CPT/HCPCS: 19083; 77065

== ENCOUNTER → 2021-03-07 13:42 | Outpatient (CLI) | payer OTHER, SELFPAY ==
[2020-10-28 01:07] VITALS: BMI 35.5
--- NOTE | 2021-03-07 13:43 | DI.MRI.S_ITS ---
BREAST MRI OF BOTH BREASTS: 03/07/2021 CLINICAL: Left breast cancer. PROCEDURE: MR BREAST BI WO/W CON INDICATIONS: LEFT BREAST CANCER TECHNIQUE: The patient was placed prone in a dedicated breast imaging coil. Precontrast axial STIR and 3D FLASH without fat saturation sequences were obtained. Both before and after bolus injection of contrast, sequential 1-minute axial 3D FLASH with fat saturation sequences for 3 time points, with subtraction images and maximum intensity projections (MIP's) generated. Delayed sagittal FLASH images with fat saturation were also obtained. 20 cc ProHance IV contrast. Computer-aided detection, including computer algorithm analysis of MRI image data for lesion detection and characterization, pharmacokinetic analysis, with further physician review for interpretation, was performed. COMPARISON: [facility], , MM DIAGNOSTIC MAMMO UNILAT LT2D, 01/30/2021, 10:09. [facility], US, US BX BREAST PERC W VAC DEVICE, 01/30/2021, 9:12. [facility], US, US BREAST LT LIMITED, 01/06/2021, 15:27. [facility], MM DIAGNOSTIC MAMMO BI, 01/06/2021, 14:35. [facility], BILATERAL DIAGNOSTIC MAMMOGRAM, 08/03/2014, 13:42. FINDINGS: Image quality: Excellent. There is moderate background parenchymal enhancement. Right breast: There are multiple small T2 hyperintense cysts. A larger cyst in the retro areolar breast middle depth measures 1 cm, (2/). Small cyst in the 11 o'clock position just deep to the skin posterior depth measuring 0.9 cm, () without enhancement is consistent with a proteinaceous cyst. Left breast: There is a large solid and cystic lobular mass with enhancement at 6:00 o'clock posterior depth measuring 4.9 x 4.1 x 3.8 cm, ( and ). Kinetic analysis demonstrates heterogeneous appearance with portions with rapid initial phase and washout delayed phase as well as other areas with more benign kinetics. Biopsy clip within the center of this lesion. There is an exophytic projection at the inferior anterolateral aspect extending 1.3 cm, (). There are multiple T2 hyperintense cysts. A larger cyst in the 12 o'clock position middle depth measuring 1.5 cm, (2/29). This may correspond to the cyst seen on ultrasound labeled as 1 o'clock position. Miscellaneous: Enlarged left axillary tail and left axillary nodes. A left axillary node with effaced fatty hilum and rounded appearance measures 1.4 cm in diameter, (7/71). There is a rapid initial phase and washout delayed phase. There is heterogeneous T1 hypointense signal in the left humeral head, (5/129). No enhancement is appreciated. The right shoulder is not well seen for comparison. IMPRESSION: KNOWN BIOPSY PROVEN MALIGNANCY 1. Left breast 6:00 o'clock posterior depth lobular solid and cystic enhancing mass measuring 4.9 cm. This corresponds to the biopsy-proven malignancy. Exophytic nodule at the inferior anterolateral aspect. 2. Enlarged left axillary and axillary tail nodes. This is highly suspicious for metastatic disease. -Recommend ultrasound-guided biopsy if clinically indicated. 3. Multiple bilateral T2 hyperintense cysts. 4. Heterogeneous hypointense signal in the left humeral head. This could be artifactual, due to degenerative change, or less likely metastatic disease given the lack of enhancement. -recommend clinical correlation and as a precaution recommend left shoulder radiographs. BIRADS 6. COMMENT: The imaging literature indicates that a negative contrast breast MRI examination has a high sensitivity and a moderate specificity for detecting and excluding invasive carcinomas to a detection threshold of 3-5 mm; nonetheless, appropriate clinical and mammographic follow-up are recommended. MRI is not sensitive for detecting DCIS (ductal carcinoma in situ) and may not detect large invasive neoplasms that show only minimal enhancement such as mucinous carcinoma. If there are suspicious calcifications or clinically worrisome palpable masses, then biopsy should still be considered. Invasive neoplasms can be hidden by co-existent and benign enhancement caused by mastitis, hormone therapy effects, radiation therapy, , and recent biopsy or surgery. False positive examinations can occur in a number of circumstances, including breasts that have recently been subject to invasive procedures and those that contain atypical ductal hyperplasia, hormonally stimulated glandular tissue, fat necrosis, or radial scars. Dictated by: Dino Hillman M.D. on 03/07/2021 at 15:55 This exam was interpreted at Station ID: [id number]. Electronically Signed By: Dino Hillman M.D. slc/:03/07/2021 16:41:40 copy to: Emmy Jc ACR BI-RADS Category 6: Known biopsy proven malignancy 3346F
== END ==
PROVIDERS: PCP Family Medicine; Referring Provider Surgery; Visit Provider Surgery
DX: C50.812 Malignant neoplasm of overlapping sites of left female breast (principal); N60.01 Solitary cyst of right breast; R59.0 Localized enlarged lymph nodes; N60.02 Solitary cyst of left breast
CPT/HCPCS: 77049; A9579

== ENCOUNTER → 2021-04-04 09:13 | Outpatient (CLI) | payer OTHER, SELFPAY ==
[2020-10-28 01:07] VITALS: BMI 35.5
--- NOTE | 2021-04-04 | DI.US.S_ITS ---
ULTRASOUND GUIDED BIOPSY LEFT BREAST WITH POST ULTRASOUND IMAGIN04/04/2021 CLINICAL: Left axillary node biopsy. PATIENT CONSENT: Risks (minor bleeding, infection, vasovagal reaction and repeat procedure), benefits and alternatives were explained to the patient and written informed consent was obtained. Correlation is made to exams dated: 03/07/2021 breast MRI, 01/30/2021 mammogram, 01/30/2021 ultrasound biopsy, 01/06/2021 ultrasound, and 01/06/2021 mammogram - [facility]. An ultrasound guided biopsy using real-time ultrasound was performed for a lymph node located in the left axillary tail. The skin was prepped in the usual manner. Local anesthetic was administered to the access site. The abnormality was approached from the lateral aspect. A 20 gauge biopsy needle was placed adjacent to the abnormality through an introducer device under ultrasound guidance. Once the needle was documented to be in the correct location, 4 specimens were obtained using an automated biopsy gun. Post procedure ultrasound imaging demonstrates the clip at the targeted area. The specimens were sent to the laboratory for pathological analysis. IMPRESSION: ULTRASOUND GUIDED BIOPSY BENIGN Ultrasound guided biopsy of the lymph node in the left axilla was successful. Pathology results indicated benign lymph node tissue without evidence for malignancy/metastatic disease. Radiology and imaging findings are concordant. Recommend continued clinical evaluation by surgical/oncologic consultation for biopsy proven malignancy in the left breast at the 6:00 position, 7 cm from the nipple as previously described. Additionally, recommend follow up left breast ultrasound for a separate, probably benign finding at the 2 o'clock anterior depth as described on prior evaluation. This was favored to represent a complicated cyst. This exam was interpreted at Station ID: [id number]. Yohan Arriaza M.D. fx,aty/:04/14/2021 18:28:39 copy to: Emmy Jc
--- NOTE | 2021-04-04 | PATH_ITS ---
[facility] Accession Number: [id number] . 01 Material submitted: . breast - LEFT AXILLARY NODE . 01 Diagnosis: Left Axillary Lymph Node, Needle Core Biopsies: Lymph node tissue with evidence of neoplasm. Negative for metastatic carcinoma, confirmed by ROGELIO/pancytokeratin immunohistochemical stain. MRV 04/07/2021 1422 Local . 01 Electronically signed: . Bladimir Vivar MD, PhD, Pathologist NPI- [id number] . 01 Gross description: . LEFT AXILLARY NODE: Received in formalin are 2 fragment(s) of mattson, soft tissue measuring 0.3 x 0.1 x 0.1 cm to 0.7 x 0.1 x 0.1 cm submitted entirely in 1 cassette(s) /UMESH 04/05/2021 1908 Local . 01 Microscopic: . Given the clinical history of mammary carcinoma, an ROGELIO immunohistochemical stain is performed to evaluate for metastatic carcinoma, and is negative. A control stain shows appropriate reactivity. . * This test was developed and its performance characteristics determined by [facility]. It has not been cleared or approved by the U.S. Food and Drug Administration. The FDA has determined that such clearance or approval is not necessary. This test is used for clinical purposes. It should not be regarded as investigational or for research. . 01 Pathologist provided ICD-10: Z85.3 . 01 CPT . 110906, X25934 Specimen Comment: A courtesy copy of this report has been sent to [facility] Pathology Performed at: 01 [facility] Cytology [address] [place] [address] [address], [place], [place] [id number] MD Zeus Dawn MD Phone: [phone]
== END ==
PROVIDERS: PCP Family Medicine; Referring Provider Surgery; Visit Provider Surgery
DX: C50.812 Malignant neoplasm of overlapping sites of left female breast (principal); R59.0 Localized enlarged lymph nodes; N64.89 Other specified disorders of breast
CPT/HCPCS: 38505; 76942

== ENCOUNTER → 2022-08-14 12:30 | Outpatient (CLI) | payer OTHER, SELFPAY ==
[2020-10-28 01:07] VITALS: BMI 35.5
--- NOTE | 2022-08-14 | DI.MG.S_ITS ---
BILATERAL DIGITAL DIAGNOSTIC MAMMOGRAM 3D/2D SHORT-TERM FOLLOW-UP POST LUMPECTOMY: 08/14/2022 CLINICAL: Left breast cancer. Comparison is made to exams dated: 01/30/2021 mammogram, 01/06/2021 mammogram, and 08/03/2014 mammogram - [facility]. Both breasts are heterogeneously dense, which may obscure small masses (category c / 51-75% glandular tissue). Expected post-operative finding in the left breast. No significant masses, calcifications, or other findings are seen in either breast. IMPRESSION: BENIGN There is no mammographic evidence of malignancy. Expected post-operative finding in the left breast. A 1 year screening mammogram is recommended. This exam was interpreted at Station ID: [id number]. NOTE: For mammograms, a report in lay terms will be sent to the patient. Approximately 15% of breast malignancies will not be visualized mammographically. In the management of a palpable breast mass, a negative mammogram must not discourage biopsy of a clinically suspicious lesion. Electronically Signed By: Dino Hillman M.D. slc/:08/14/2022 13:20:42 copy to: Emmy Jc letter sent: Normal Exam ACR BI-RADS Category 2: Benign Finding(s) 3342F
== END ==
PROVIDERS: Referring Provider Internal Medicine Hematology & Oncology; Visit Provider Internal Medicine Hematology & Oncology
DX: C50.812 Malignant neoplasm of overlapping sites of left female breast (principal)
CPT/HCPCS: 77066; G0279

== ENCOUNTER 2022-10-18 08:21 | Day surgery (SDC) | payer OTHER, SELFPAY ==
[2020-10-28 01:07] VITALS: BMI 35.5
--- NOTE | 2022-10-18 | PATH_ITS ---
[facility] Accession Number: [id number] No. of containers..02 Tissue . 01 Material submitted: . PART A: colon - TRANSVERSE POLYP PART B: rectum - RECTAL POLYP . 01 Diagnosis: A. Transverse Colon Polyp, Biopsy: Tubular adenoma. . B. Rectal Polyp, Biopsy: Foreign body/fecal material. No colonic tissue identified. [facility] 10/30/2022 1544 Local . 01 Electronically signed: . Ashley Matson MD, Pathologist NPI- [id number] . 01 Gross description: . Part A: TRANSVERSE POLYP: Received in formalin is 1 fragment(s) of mattson, soft tissue measuring 0.9 x 0.4 x 0.2 cm submitted entirely in 1 cassette(s) Part B: RECTAL POLYP: Received in formalin are 2 fragment(s) of mattson, soft tissue measuring 0.3 x 0.3 x 0.1 cm to 0.3 x 0.2 x 0.1 cm submitted entirely in 1 cassette(s) /GET 10/19/2022 1550 Local . 01 Pathologist provided ICD-10: D12.3 . 01 CPT . 046859, 974338 Specimen Comment: A courtesy copy of this report has been sent to [phone] Performed at: 01 [facility] Cytology [address] [place] [address] [address] [facility], [place], [place] [id number] MD Zeus Dawn MD Phone: [phone]
[2022-10-18 08:32] VITALS: BP 147/99; PULSE 81; RESP 16; TEMP 36; O2SAT 98; BMI 35.8
[2022-10-18] MEDS: LACTATED RINGERS 1,000 ML 42 ML IV (08:41)
--- NOTE | 2022-10-18 09:57 | PM.HP.1 ---
History of Present Illness History of Present Illness Date Patient Seen: 10/18/22 Time Patient Seen: 09:58 Chief complaint: SDC Narrative: Virgen is a 57-year-old woman who is here for colonoscopy. Her last 1 was over 10 years ago. She thinks she was supposed to have a 5 year interval. She recently completed treatment for breast cancer. She is not aware of a family history of colon cancer. [facility] Medical History (Updated 10/18/22 @ 09:58 by Adarsh Sampson MD) Pre-diabetes Surgical History (Updated 10/28/20 @ 02:17 by SU Geiger) History of hysterectomy Family History (Updated 10/28/20 @ 02:18 by SU Geiger) Mother Diabetes mellitus Father Diabetes mellitus Social History household members: spouse Smoking Status: Never smoker alcohol intake: current Meds Home Medications and Allergies Home Medications Medication Instructions Recorded Confirmed Type cetirizine 10 mg tablet (Zyrtec) 10 mg PO DAILY PRN Allergic 10/31/20 10/18/22 History Symptoms anastrozole 1 mg tablet 1 mg PO DAILY 10/18/22 10/18/22 History metformin 500 mg tablet,extended 500 mg PO BID 10/18/22 10/18/22 History release 24 hr oxybutynin chloride 5 mg tablet 5 mg PO BID 10/18/22 10/18/22 History Allergies Allergy/AdvReac Type Severity Reaction Status Date / Time No Known Drug Allergies Allergy Verified 10/18/22 08:31 Exam Vital Signs (past 8 hours): - 10/18/22 08:32 Temperature 96.8 F L Pulse Rate 81 Respiratory Rate 16 Blood Pressure 147/99 H Pulse Oximetry 98 Oxygen Delivery Method Room Air Oxygen Delivery Method Room Air Const General: healthy appearing Assessment & Plan Assessment and plan (1) Colon cancer screening: Status: Acute Plan We reviewed the risks and benefits of colonoscopy for colon cancer screening and she would like to proceed.
[2022-10-18 10:34] VITALS: BP 126/81; PULSE 90; RESP 20; TEMP 37.1; O2SAT 96
--- NOTE | 2022-10-18 10:34 | PM.OP.COLON ---
Operative Date/Time/Diagnoses Date of procedure: 10/18/22 Time of procedure: 10:34 Pre-op diagnosis: Colon cancer screening Post-op diagnosis: same Procedure & Clinicians Study performed: Colonoscopy Same procedure as scheduled: Yes Surgeon: Adarsh Sampson Procedure Notes Procedure in detail: Surgeon: Adarsh Sampson MD Anesthesia: Miguel Schilling CRNA Procedure: The patient was brought to the endoscopy suite, placed in left lateral decubitus position. The patient was connected to monitoring devices. A time-out was performed. Sedation was administered. Once the patient was adequately sedated, a digital rectal exam was performed and was normal. The scope was then inserted and advanced to the cecum where the appendiceal orifice was identified and photographed. The scope was then slowly withdrawn over greater than 6 minutes. The mucosa was thoroughly inspected. There was a 5 mm polyp in the transverse colon removed with a cold snare. There was a 5 mm polyp in the rectum removed with a cold snare. The scope was retroflexed in the rectum. No other abnormalities were seen. The scope was straightened and removed. The patient was awakened and brought to recovery. Scope withdrawal time: 12 minutes Sedation time: 19 minutes EBL: 5 mL Findings: 5 mm polyp in the transverse colon and 5 mm polyp in the rectum Post-procedure Disposition: PACU
[2022-10-18 10:39] VITALS: BP 129/91; PULSE 84; RESP 19; TEMP 37; O2SAT 100
[2022-10-18 10:44] VITALS: BP 131/90; PULSE 71; RESP 11; TEMP 37; O2SAT 100
[2022-10-18 10:59] VITALS: BP 131/91; PULSE 78; RESP 18; TEMP 37; O2SAT 98
== END 2022-10-18 11:05 | disposition home or self-care (01) ==
PROVIDERS: PCP Naturopath; Referring Provider Surgery; Visit Provider Surgery
PROC: 0DJD8ZZ Inspection of Lower Intestinal Tract, Via Natural or Artificial Opening Endoscopic (ICD-10-PCS; CPT 45378; principal; 2022-10-18 09:30)
DX: Z12.11 Encounter for screening for malignant neoplasm of colon (principal); D12.3 Benign neoplasm of transverse colon
CPT/HCPCS: 45385; J2704

== ENCOUNTER → 2022-11-14 15:53 | Outpatient (CLI) | payer OTHER, SELFPAY ==
[2020-10-28 01:07] VITALS: BMI 35.5
--- NOTE | 2022-11-14 15:55 | DI.RAD.S_ITS ---
PROCEDURE: XR CHEST 2V INDICATIONS: Cough TECHNIQUE: 2 views of the chest were acquired. COMPARISON: [facility], CR, XR CHEST 1V, 10/27/2020, 21:23. FINDINGS: Surgical changes and devices: None. Lungs and pleura: Lungs are clear. No pleural effusions or pneumothorax. Mediastinum: Mediastinal contours are normal. Heart size is enlarged. Bones and chest wall: No suspicious bony abnormalities. Soft tissues appear unremarkable. IMPRESSION: No acute cardiopulmonary abnormality is seen. Dictated by: Ayah Bales M.D. on 11/14/2022 at 16:49 Approved by: Ayah Bales M.D. on 11/14/2022 at 16:50
== END ==
PROVIDERS: PCP Naturopath; Referring Provider Nurse Practitioner Family; Visit Provider Nurse Practitioner Family
DX: R05.9 Cough, unspecified (principal)
CPT/HCPCS: 71046

== ENCOUNTER 2022-11-20 11:39 | Emergency (ER) | payer OTHER, SELFPAY ==
[2020-10-28 01:07] VITALS: BMI 35.5
[2022-11-20 12:24] VITALS: BP 157/99; PULSE 77; RESP 17; TEMP 36.7; O2SAT 99
--- NOTE | 2022-11-20 12:24 | DI.RAD.S_ITS ---
PROCEDURE: XR ANKLE RT MIN 3V INDICATIONS: rolled ankle TECHNIQUE: 3 views of the ankle were acquired. COMPARISON: None. FINDINGS: Bones: No fractures or dislocations. Ankle mortise is normally aligned. Osteoarthritic changes are noted throughout midfoot and hindfoot joints. Well-defined plantar calcaneal enthesophyte is seen. No suspicious bony lesions. Soft tissues: Mild lateral ankle soft tissue swelling is seen. No tibiotalar joint effusion. Achilles tendon appears normal. IMPRESSION: Mild lateral ankle soft tissue swelling. No gross acute ankle fracture or dislocation. Mild midfoot and hindfoot joint osteoarthritis. Calcaneal enthesophyte. Dictated by: Anson Barrett M.D. on 11/20/2022 at 12:57 Approved by: Anson Barrett M.D. on 11/20/2022 at 12:59
--- NOTE | 2022-11-20 14:29 | ED.LOWEXIN ---
HPI - Extremity Injury (Lower) <Samuel Leonardo PA-C - Last Filed: 11/20/22 14:51> General Chief Complaint: Extremity Injury, Lower Stated Complaint: Rolled R ankle T-0 swelling/discolored/ Time Seen by Provider: 11/20/22 14:28 Source: patient Mode of arrival: Ambulatory History of Present Illness HPI Narrative: 57-year-old female presents to the ED status post a right ankle injury sustained just prior to arrival. 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 Patient denies numbness, tingling, weakness. Patient states that she initially had trouble bearing weight and walking, however since she came to the ED she is able to lightly bear weight on the inside of her injured foot and walk. Related Data Home Medications Medication Instructions Recorded Confirmed anastrozole 1 mg tablet 1 mg PO DAILY 10/18/22 11/20/22 oxybutynin chloride 5 mg tablet 5 mg PO BID 10/18/22 11/20/22 metformin 500 mg tablet,extended 500 mg PO BID 11/20/22 11/20/22 release 24 hr Allergies Allergy/AdvReac Type Severity Reaction Status Date / Time No Known Drug Allergies Allergy Verified 11/20/22 12:26 Review of Systems <Samuel Leonardo PA-C - Last Filed: 11/20/22 14:51> Review of Systems ROS Unobtainable: All systems reviewed & are unremarkable except as noted in HPI and below Constitutional Constitutional: Denies chills, Denies fatigue, Denies fever(s), Denies frequent falls, Denies lethargy and Denies weakness Eyes Eyes: Denies change in vision, Denies eye discharge, Denies irritation and Denies loss of vision ENT Ears, Nose, Mouth, and Throat: Denies change in voice, Denies dizziness, Denies neck pain, Denies sore throat and Denies throat swelling Cardiovascular Cardiovascular: Denies chest pain, Denies irregular heart rhythm, Denies lightheadedness, Denies palpitations, Denies dyspnea, Denies dyspnea on exertion and Denies orthopnea Respiratory Respiratory: Denies cough, Denies dyspnea, Denies dyspnea on exertion and Denies wheezing Gastrointestinal Gastrointestinal: Denies abdominal pain, Denies change in bowel habits, Denies diarrhea, Denies nausea and Denies vomiting Genitourinary Genitourinary: Denies hematuria, Denies flank pain, Denies urinary incontinence and Denies urinary urgency Musculoskeletal Musculoskeletal: Denies back pain, Denies muscle weakness, Denies neck pain, Denies numbness and Denies tingling Comments: Right ankle pain Integumentary/Breasts Skin/Breast: Denies pruritus, Denies erythema, Denies rash and Denies wounds Neurologic Neurologic: Denies behavioral changes, Denies confusion, Denies dizziness, Denies frequent falls, Denies loss of vision, Denies numbness, Denies tingling and Denies weakness Psychiatric Psychiatric: Denies anxiety, Denies behavioral changes, Denies confusion, Denies depression, Denies homicidal ideation and Denies suicidal ideation Endocrine Endocrine: Denies fatigue, Denies flushing and Denies palpitations Hematologic/Lymphatic Hematologic/Lymphatic: Denies easy bruising Allergic/Immunologic Allergic/Immunologic: Denies urticaria, Denies throat swelling and Denies wheezing Patient History <Samuel Leonardo PA-C - Last Filed: 11/20/22 14:51> Medical History Pre-diabetes Surgical History History of hysterectomy Family History Mother Diabetes mellitus Father Diabetes mellitus Social History household members: spouse Smoking Status: Never smoker alcohol intake: current Smoking Status: Never smoker alcohol intake frequency: holidays/special occasions only Substance Use Type: does not use Exam <Samuel Leonardo PA-C - Last Filed: 11/20/22 14:51> Narrative Exam Narrative: Const General:?cooperative, healthy appearing and comfortable [facility] Head:?normal to inspection Ears:?hearing grossly normal bilaterally Nose:?external nose normal Face and sinus:?normal facial exam and sinuses nontender Mouth:?oral mucosae normal Throat:?posterior oropharynx normal Eyes General:?appearance normal, both eyes and all related structures Neck Neck:?normal visual inspection and no lymphadenopathy noted Resp Effort & Inspection:?normal respiratory effort Auscultation:?clear to auscultation bilaterally Cardio Rate:?regular rate Rhythm:?regular rhythm Neuro General:?patient alert, patient awake and patient oriented x3 Initial Vital Signs Initial Vital Signs: Vital Signs Temperature 98.1 F 11/20/22 12:24 Pulse Rate 77 11/20/22 12:24 Respiratory Rate 17 11/20/22 12:24 Blood Pressure 157/99 H 11/20/22 12:24 Pulse Oximetry 99 11/20/22 12:24 Oxygen Delivery Method Room Air 11/20/22 12:24 <Jed Reynoso DO - Last Filed: 11/20/22 14:53> Initial Vital Signs Initial Vital Signs: Vital Signs Temperature 98.1 F 11/20/22 12:24 Pulse Rate 77 11/20/22 12:24 Respiratory Rate 17 11/20/22 12:24 Blood Pressure 157/99 H 11/20/22 12:24 Pulse Oximetry 99 11/20/22 12:24 Oxygen Delivery Method Room Air 11/20/22 12:24 Course <Samuel Leonardo PA-C - Last Filed: 11/20/22 14:51> Orders Ordered: ED Orders 11/20/22 12:24 XR ankle RT min 3V Stat Vital Signs Vital signs: Vital Signs - 8 hr 11/20/22 12:24 Temperature 98.1 F Pulse Rate 77 Respiratory Rate 17 Blood Pressure 157/99 H Pulse Oximetry 99 Oxygen Delivery Method Room Air <DO Leonor Paul Last Filed: 11/20/22 14:53> Orders Ordered: ED Orders 11/20/22 12:24 XR ankle RT min 3V Stat Vital Signs Vital signs: Vital Signs - 8 hr 11/20/22 12:24 Temperature 98.1 F Pulse Rate 77 Respiratory Rate 17 Blood Pressure 157/99 H Pulse Oximetry 99 Oxygen Delivery Method Room Air MDM - Extremity Injury (Lower) <JANE Navarro Last Filed: 11/20/22 14:51> MDM Narrative Medical decision making narrative: 57-year-old female presents to the ED status post a right ankle injury sustained just prior to arrival. Concern for fracture/dislocation versus musculoskeletal sprain/strain versus other. X-ray was obtained without any acute findings. Patient's symptoms most consistent with an ankle sprain/strain. Patient's ankle was as Preston wrapped. Recommend RICE, heat packs, ibuprofen, Tylenol. Patient fitted with crutches to use until she is able to ambulate comfortably. Recommend follow-up PCP. ED return precautions discussed with patient. Patient verbalized understanding. Medical records reviewed: Yes Discharge Plan Departure Patient Disposition: Home Clinical Impression: Ankle sprain and strain Instructions: DI for Ankle Sprain Activity Restrictions/Additional Instructions: You were evaluated in the ED today for a right ankle injury. Your x-ray did not show any fractures or dislocations. Your symptoms are likely due to a musculoskeletal sprain/strain. You may take ibuprofen 800 mg 3 times a day with food. You may also take Tylenol 1000 mg 3 times a day. You may walk around with crutches for the 1st 2 days, and gradual bear weight as you feel comfortable. It is also helpful to rest the injury, apply ice for the 1st 24 hours, apply heat packs after the 1st 24 hours, use Preston bandages, elevate your feet above heart level. Please follow-up with your PCP as soon as possible. Please return to the ED if you have worsening symptoms, numbness, tingling, weakness. Medical records reviewed: Yes Prescriptions: No Action anastrozole 1 mg tablet 1 mg PO DAILY oxybutynin chloride 5 mg tablet 5 mg PO BID metformin 500 mg tablet extended release 24 hr 500 mg PO BID Referrals: Emmy Del Valle ND [Primary Care Provider] - Stand Alone Forms: Patient Portal/API <Jed Reynoso DO - Last Filed: 11/20/22 14:53> [facility] Att[facility]: Dr Reynoso Co-Sign Statement: I was available for consultation during this patient's emergency department visit. This chart is signed by myself for administrative purposes only. I did not have direct contact with this patient during this visit. They were seen independently by the APC.
[2022-11-20 14:54] VITALS: PULSE 76
== END 2022-11-20 15:00 | disposition home or self-care (01) ==
PROVIDERS: Emergency Provider Student in an Organized Health Care Education/Training Program; PCP Naturopath
DX: S93.401A Sprain of unspecified ligament of right ankle, initial encounter (principal); S96.911A Strain of unspecified muscle and tendon at ankle and foot level, right foot, initial encounter; X50.1XXA Overexertion from prolonged static or awkward postures, initial encounter
CPT/HCPCS: 73610; 99283

== ENCOUNTER 2022-12-24 19:28 | Emergency (ER) | payer OTHER, SELFPAY ==
[2020-10-28 01:07] VITALS: BMI 35.5
[2022-12-24 19:36] VITALS: BP 149/90; PULSE 106; RESP 18; TEMP 36.4; O2SAT 97; BMI 35.0
--- NOTE | 2022-12-24 19:39 | DI.RAD.S_ITS ---
PROCEDURE: XR FOOT LT MIN 3V INDICATIONS: fall TECHNIQUE: 3 views of the foot were acquired. COMPARISON: [facility] [place], CR, XR FOOT 3+ VIEWS LEFT, 12/07/2021, 8:09. [facility] [place], CR, XR ANKLE 1 OR 2 VIEWS LEFT, 12/07/2021, 8:17. FINDINGS: Bones: No fractures or dislocations. No suspicious bony lesions. Mild osteoarthritic changes in ankle and foot. Calcaneal spurring. Soft tissues: No tibiotalar joint effusion. Achilles tendon appears normal. Marked dorsal soft tissue swelling over the metatarsals. IMPRESSION: No acute osseous abnormality. If clinical symptoms persist or clinical suspicion for pathology is high, a repeat examination in 7-10 days, or advanced imaging such as CT or MRI is suggested for further evaluation. Dictated by: Yohan Lentz M.D. on 12/24/2022 at 20:39 Approved by: Yohan Lentz M.D. on 12/24/2022 at 20:42
[2022-12-24] MEDS: IBUPROFEN 400 MG TABLET 600 MG PO (19:47)
--- NOTE | 2022-12-24 21:33 | ED_ITS ---
HPI - Extremity Injury (Lower) General Chief Complaint: Extremity Injury, Lower Stated Complaint: fell/lt foot inj Time Seen by Provider: 12/24/22 21:33 Source: patient Mode of arrival: Wheelchair History of Present Illness HPI Narrative: Patient 57-year-old female without significant past medical history presenting today with left pain. He reports that she was carrying something walking in the dark and cold she slipped in a rut hard or left foot. She reports extreme pain with weight-bearing. No ankle or knee injury. She denies hitting her head. She had surgery on her right hand about a week ago she actually has pain medication at a pharmacy that she needs up. Able to use crutches due to the right hand injury. She also rolled her right ankle last month which she says has healed Related Data Home Medications Medication Instructions Recorded Confirmed anastrozole 1 mg tablet 1 mg PO DAILY 10/18/22 11/20/22 oxybutynin chloride 5 mg tablet 5 mg PO BID 10/18/22 11/20/22 oxybutynin chloride 5 mg tablet 5 mg PO BID 12/24/22 12/24/22 Allergies Allergy/AdvReac Type Severity Reaction Status Date / Time No Known Drug Allergies Allergy Verified 12/24/22 19:40 Patient History Medical History Pre-diabetes Surgical History History of hysterectomy Family History Mother Diabetes mellitus Father Diabetes mellitus Social History household members: spouse Smoking Status: Never smoker alcohol intake: current Smoking Status: Never smoker alcohol intake frequency: holidays/special occasions only Substance Use Type: does not use Exam Initial Vital Signs Initial Vital Signs: Vital Signs Temperature 97.6 F 12/24/22 19:36 Pulse Rate 106 H 12/24/22 19:36 Respiratory Rate 18 12/24/22 19:36 Blood Pressure 149/90 H 12/24/22 19:36 Pulse Oximetry 97 12/24/22 19:36 Oxygen Delivery Method Room Air 12/24/22 19:36 GENERAL: Well-appearing, well-nourished and in no acute distress. CARDIOVASCULAR: peripheral pulses in tact, cap refill <2 sec RESPIRATORY: No respiratory distress, speaks in full sentences without difficulty EXTREMITIES: Normal range of motion, no clubbing or edema. Neurovascularly intact Left lower extremity dorsal contusion noted tender to touch distal pedal pulse intact. Moving toes Achilles intact ankle stable knee stable NEUROLOGICAL: Cranial nerves II through XII grossly intact. Normal gait and speech. SKIN: Warm, dry, no petechiae, no rashes or lesions. Course Orders Ordered: ED Orders 12/24/22 19:39 XR foot LT min 3V Stat Discontinued Medications Ibuprofen (Ibuprofen 600 Mg Tablet) 600 mg PO NOW ONE Stop: 12/24/22 19:40 Last Admin: 12/24/22 19:46 Dose: Not Given Documented By: Ibuprofen (Ibuprofen 400 Mg Tablet) 600 mg PO NOW ONE Stop: 12/24/22 19:45 Last Admin: 12/24/22 19:47 Dose: 600 mg Documented By: Vital Signs Vital signs: Vital Signs - 8 hr 12/24/22 19:36 12/24/22 21:51 Temperature 97.6 F Pulse Rate 106 H 88 Respiratory Rate 18 18 Blood Pressure 149/90 H 134/88 Pulse Oximetry 97 100 Oxygen Delivery Method Room Air Room Air MDM - Extremity Injury (Lower) Imaging Data Extremity x-ray #1: Radiologist's Impression: PROCEDURE: XR FOOT LT MIN 3V INDICATIONS: fall TECHNIQUE: 3 views of the foot were acquired. COMPARISON: [facility] [place], CR, XR FOOT 3+ VIEWS LEFT, 12/07/2021, 8:09. [facility] [place], CR, XR ANKLE 1 OR 2 V IEWS LEFT, 12/07/2021, 8:17. FINDINGS: Bones: No fractures or dislocations. No suspicious bony lesions. Mild osteoarthritic changes in ankle and foot. Calcaneal spurring. Soft tissues: No tibiotalar joint effusion. Achilles tendon appears normal. Marked dorsal soft tissue swelling over the metatarsals. IMPRESSION: No acute osseous abnormality. If clinical symptoms persist or clinical suspicion for pathology is high, a repeat examination in 7-10 days, or advanced imaging such as CT or MRI is suggested for further evaluation. Dictated by: Yohan Lentz M.D. on 12/24/2022 at 20:39 [facility] Narrative Medical decision making narrative: Patient healthy 57-year-old female presents today with mechanical left foot injury. She infusion and on exam negative. She is crutches at home she already has a pain prescription at a pharmacy if needed for her hand. At this time supportive care only. Discharge Plan Departure Patient Disposition: Home Clinical Impression: Contusion of foot, left Instructions: Contusion Activity Restrictions/Additional Instructions: *You have been diagnosed with left foot contusion *What to do: At this time elevate and ice x-ray is negative. Use crutches as best you can. You may weightbear as tolerated. If still having significant pain and unable to weight bear may require repeat x-ray in 10-14 days *Continue to take medications as directed Motrin 600 mg every 6 hours for [id number] pain Tylenol 1000 mg every 6 hours if needed for [id number] pain *Follow up with your primary care provider in 2-3 days or call [phone] *Return to ER if you should have increasing pain numbness tingling weakness or any new, worsening or concerning symptoms Prescriptions: No Action anastrozole 1 mg tablet 1 mg PO DAILY oxybutynin chloride 5 mg tablet 5 mg PO BID oxybutynin chloride 5 mg tablet 5 mg PO BID Referrals: Emmy Del Valle ND [Primary Care Provider] - Stand Alone Forms: Patient Portal/API
[2022-12-24 21:51] VITALS: BP 134/88; PULSE 88; RESP 18; O2SAT 100
== END 2022-12-24 21:52 | disposition home or self-care (01) ==
PROVIDERS: Emergency Provider Emergency Medicine; PCP Naturopath
DX: S90.32XA Contusion of left foot, initial encounter (principal); W01.0XXA Fall on same level from slipping, tripping and stumbling without subsequent striking against object, initial encounter
CPT/HCPCS: 73630; 99283

== ENCOUNTER → 2023-01-26 12:14 | Outpatient (CLI) | payer OTHER, SELFPAY ==
[2020-10-28 01:07] VITALS: BMI 35.5
--- NOTE | 2023-01-26 12:15 | DI.CT.S_ITS ---
PROCEDURE: CT LE LT W CON INDICATIONS: Lisfrancinjury left foot surgical planning TECHNIQUE: Noncontrast 1-1.5 mm axial sections acquired from above the tibiotalar joint to the bottom of the calcaneus, with coronal and sagittal reformats. COMPARISON: [facility], CR, XR FOOT LT MIN 3V, 12/24/2022, 20:04. [facility], CR, XR FOOT 3 VIEWS WEIGHT BEARING LEFT, 01/09/2023, 9:04. FINDINGS: Image quality: Excellent. Bones: Osteoarthritic changes are noted throughout left foot with joint space narrowing, subchondral sclerosis and small marginal osteophyte formation. Subacute appearing oblique fracture through plantar and medial aspect of 3rd metatarsal base is seen with fracture line extending to 3rd TMT joint space and lateral displacement at fracture site and up to 4 mm diastasis. Fracture involving plantar and medial aspect of 4th metatarsal base is also seen with plantar and medially displaced fractured fragments. Age indeterminate comminuted fractures is also seen involving medial aspect of 2nd metatarsal base with a cortical defect and adjacent small fractured fragments within Lisfranc joint space. No other fracture or dislocation is seen. Osteoarthritic changes are noted throughout left foot. Soft tissues: There is slight lateral subluxation at 2nd TMT joint. There is widening of the Lisfranc joint space. No significant joint effusion. No gross full-thickness tendon ruptures. No abnormal soft tissue calcifications. IMPRESSION: 1. Subacute to chronic appearing fracture involving medial aspect of 2nd metatarsal base at the level of distal Lisfranc ligament attachment. Widened Lisfranc joint space. Finding is concerning for Lisfranc ligament rupture. 2. Subacute appearing , slightly comminuted and displaced fractures involving 3rd and 4th metatarsal bases as described above. 3. Left foot osteoarthritis. No other fracture or dislocation. No suspicious bony lesions. 4. No other abnormal soft tissue calcifications. No full-thickness left foot tendon rupture. Dictated by: Anson Barrett M.D. on 01/28/2023 at 8:20 Approved by: Anson Barrett M.D. on 01/28/2023 at 8:34
== END ==
PROVIDERS: PCP Student in an Organized Health Care Education/Training Program; Referring Provider Orthopaedic Surgery Foot and Ankle Surgery; Visit Provider Orthopaedic Surgery Foot and Ankle Surgery
DX: S92.322A Displaced fracture of second metatarsal bone, left foot, initial encounter for closed fracture (principal); S92.332A Displaced fracture of third metatarsal bone, left foot, initial encounter for closed fracture; S92.342A Displaced fracture of fourth metatarsal bone, left foot, initial encounter for closed fracture; M19.072 Primary osteoarthritis, left ankle and foot; M79.672 Pain in left foot; X58.XXXA Exposure to other specified factors, initial encounter
CPT/HCPCS: 73700

== ENCOUNTER 2023-02-01 10:51 | Day surgery (SDC) | payer OTHER, SELFPAY ==
[2020-10-28 01:07] VITALS: BMI 35.5
[2023-01-30 13:13] VITALS: BMI 35.2
[2023-02-01] VITALS (7 sets, daily range): BP systolic 126–149; BP diastolic 77–87; PULSE 83–100; RESP 10–16; TEMP 36.8–37.1; O2SAT 94–100; BMI 35.2
--- NOTE | 2023-02-01 | DI.RAD.S_ITS ---
PROCEDURE: XR FOOT LT MIN 3V INDICATIONS: ORIF TECHNIQUE: 4 intraoperative spot views of the foot were acquired. COMPARISON: [facility], , XR FOOT LT MIN 3V, 12/24/2022, 20:04. FINDINGS: Bones: Intraoperative fluoroscopy used for fracture fixation involving the medial and middle cuneiform and 2nd metatarsal. Soft tissues: Expected intraoperative appearance IMPRESSION: Intraoperative fluoroscopy for ORIF left foot. Dictated by: Jordana Jackman M.D. on 02/01/2023 at 17:47 Approved by: Jordana Jackman M.D. on 02/01/2023 at 17:48
[2023-02-01] MEDS: ACETAMINOPHEN 325 MG TABLET 975 MG PO (11:35)
[2023-02-01] MEDS: LACTATED RINGERS 1,000 ML 42 ML IV (11:35)
--- NOTE | 2023-02-01 13:51 | PM.PREOP ---
Pre-operative Note Interval Note History & Physical reviewed/Exam performed by Physician: Yes Changes to H&P: No
[2023-02-01] MEDS: SCOPOLAMINE 1 PATCH TOP (14:07)
--- NOTE | 2023-02-01 14:49 | SUR.PREOP ---
Block start time [1425] . Monitoring initiated and maintained throughout procedure. Oxygen and medications given per anesthesiologist instructions. Patient remained stable throughout procedure, no adverse reactions noted. Block end time [1435 ].
[2023-02-01] MEDS: CEFAZOLIN 2 GM/100 ML PREMIX 100 ML IV (14:57)
--- NOTE | 2023-02-01 15:20 | SUR.OPER ---
Supine on padded OR bed, head on pillow, arms secured on padded arm boards at <90 degrees abduction, legs uncrossed, safety belt at thigh, tape over blanket over right leg. Left leg in control of surgeon. Bump placed under patient's left hip and left leg.
[2023-02-01] MEDS: BUPIVACAINE 0.25% (PF) 30 ML, EPINEPHrine 0.15 MG INJ (15:50)
[2023-02-01] MEDS: OXYCODONE IR 5 MG TABLET PO ×2 (17:06→17:36)
--- NOTE | 2023-02-01 17:09 | PM.OP.1 ---
Operative Date/Time/Diagnoses Date of procedure: 02/01/23 Time of procedure: 15:00 Pre-op diagnosis: 1. Left tarsometatarsal fracture dislocation, Lisfranc injury 2. Midfoot arthritis 3. Second metatarsal fracture 4. Third metatarsal fracture 5. Fourth metatarsal fracture Post-op diagnosis: same Procedure & Clinicians Procedure: 1. Tarsometatarsal fusions 2 were more CPT code 51893 (fusions of the 2nd TMT and inner cuneiform joints) 2. Open reduction internal fixation Lisfranc fracture dislocation CPT code 88245 3. Closed treatment 3rd metatarsal fracture without manipulation 4. Closed treatment 4th metatarsal fracture without manipulation Same procedure as scheduled: Yes Indications: The patient is a 57-year-old female who sustained an injury her left foot when she stepped in a hole and twisted at the beginning of December. She was seen in the ER but no fracture was initially identified. She had swelling and ecchymosis on the plantar of her foot. She later presented for orthopedic evaluation weight-bearing x-rays were obtained and reveals Lisfranc fracture dislocation with a viral fracture and Lisfranc articulation widening. She later had a CT scan that also demonstrated 2nd 3rd and 4th metatarsal base fractures. He had significant arthritis of the 2nd metatarsal base. She had persistent pain with weight-bearing with a limp. She was indicated for operative fixation of her Lisfranc fracture dislocation. We discussed options. Recommended fixation of the unstable joints. Plan would be a exam under anesthesia to assess the 1st TMT joint. My suspicion is this was stable but would exam under anesthesia. Lisfranc is fractured and requires surgical treatment. Additionally she has intra-articular involvement and significant arthritis of the 2nd TMT joint. Recommend Lisfranc ORIF with primary fusion. Third and 4th metatarsal base fractures are relatively small would treat these non operatively. The risks and benefits of the procedure have been discussed with the patient and given the opportunity to ask questions. The risks of surgery include but are not limited to infection, malunion, nonunion, persistence of pain, damage to nerves and blood vessels, posttraumatic arthritis, DVT, PE, cardiopulmonary complications and . The patient expressed a thorough understanding of the risks and benefits of surgery and has elected to proceed. Consent was signed. Surgeon: Aditi Gayle Click Yes if Unassisted: Yes Anesthesia Type: General, Peripheral nerve block and Local Operative Notes Findings: Stable 1st TMT Unstable Lisfranc articulation unstable inner cuneiform joint Severe arthritis in 2nd TMT joint Grossly stable alignment 3rd and 4th TMT joints Closure Type: primary Specimen(s): none sent Prosthetic devices, grafts, tissues, transplants, or devices: Arthrex 3.0 T-plate for 2nd TMT fusion utilized 3.0 locking and nonlocking screws. 3.5 cortical screw or Lisfranc ORIF. 4.0 cannulated screw for inner cuneiform fusion. 1 cc of DBM putty to assist in fusion. Estimated Blood Loss (mL): 20 Blood products transfused: none Tourniquet time (min): 63 Procedure in detail: Patient was seen in the preoperative area the site of surgery was marked informed consent confirmed. A preoperative regional block was placed by the anesthesia team for postoperative pain control. The patient was then brought back to the operating room. The patient was positioned supine on the operative table. Nonsterile thigh tourniquet was applied. All bony prominences were well padded. SCD was placed on the contralateral lower extremity The left lower extremity was prepped and draped in standard sterile fashion. A formal time-out procedure was performed confirming the patient's side and site of surgery administration of appropriate preoperative antibiotics. All were in agreement. Attention turned to the left lower extremity was brought in and the area between the 1st and 2nd TMT joints was marked out with a planned incision in the 1 2 interval. Next under live fluoroscopy and examined her anesthesia was performed that demonstrated stability of the 1st TMT joint. Instability of the 3rd and 4th TMT joints. There was Lisfranc widening. And inner cuneiform widening. At this point Esmarch was used for exsanguination tourniquet elevated on the thigh. Dorsal incision in the 1 2 interspace was taken down through the skin subcutaneous tissues. Neurovascular bundle was mobilized medial and dissection was taken over the 2nd TMT joint. There were dorsal osteophytes and this was debrided. The Lisfranc viral fracture was identified and there was obvious Lisfranc instability as well as inner cuneiform instability wear [place] was able to be inserted easily within this interval. K-wires were placed in and a distractor placed across the 2nd TMT joint. A bur and osteotome were used to remove the cartilage from the 2nd TMT joint down to bleeding cancellous bone. Additionally the rongeur was used to debride the Lisfranc interval and bur an attempt to get a fusion of this for long-term stability. Then between the inner cuneiform. Next 1 cc of DBM putty was used to help facilitate the fusion. Then the distractor was removed. A 3.0 T-plate from the Arthrex set was positioned over the 2nd TMT and secured with BB tacks. This was checked on multiplanar fluoroscopy. Once appropriate locking screws were inserted proximally then in the oblong hole a nonlocking screw was placed and a compression mode creating compression across the TMT joint. Once this was completed A large pointed reduction clamp was used from the base of the 2nd metatarsal to the medial cuneiform compressed. Alignment was checked on multiplanar fluoroscopy for reduction of the Lisfranc interval. Next a K-wire was placed just proximal to the oblong screw hole screw and the plate running from the base of the 2nd metatarsal to the medial cuneiform or the Lisfranc screw this was then overdrilled and a 3.5 solid screw was applied to the Lisfranc screw with excellent compression for the Lisfranc fixation. Once this was completed the Silva clamp was removed. An additional wire was placed percutaneously from medial to lateral across the inner cuneiform joint just proximal to the 2nd TMT plate. This was measured and then overdrilled and a 26 mm 4.0 cannulated screw from the Arthrex set was used for the inner cuneiform fusion with excellent bite. Next attention was returned to the distal aspect of the 2nd TMT plate and the distal screws were placed with 2 final locking screws securing fixation. Final fluoroscopic images in AP lateral and oblique images were obtained confirming appropriate alignment compression and hardware placement. Fixation was tested under stress was noted to be stable. And there was stable alignment of the 3rd and 4th TMT joints. This point the tourniquet was released hemostasis was achieved. The wounds were irrigated and closed with 2-0 Vicryl 4-0 Monocryl and 3-0 nylon suture. 10 cc of 0.25% Marcaine with epinephrine was injected for local anesthesia. Dressing was placed with Xeroform gauze Webril and a well-padded posterior and U splint. Drapes removed and the patient was woken from anesthesia and taken to the recovery room in good condition. There were no immediate complications from this procedure. All counts were correct. Complications: none Post-operative Condition: stable Disposition: PACU Plan for aftercare: Nonweightbearing left lower extremity 8 weeks. Elevate above the heart level as much as possible 1st 2 weeks after surgery. Follow up in Orthopedic Clinic in 2-3 weeks for incision check. Bring walking boot to that visit. Aspirin for DVT prophylaxis x6 weeks.
[2023-02-01] MEDS: hydrOXYzine 50 MG/ML INJ 25 MG IM (17:15)
--- NOTE | 2023-02-01 17:55 | SUR.PHASEII ---
Pt discharged to home with son. Escorted to car in , steady on feet to toilet, voided. Scooter taken with patient/son. Pt purse in scooter. Walking boot with patient.
== END 2023-02-01 17:55 | disposition home or self-care (01) ==
PROVIDERS: PCP Student in an Organized Health Care Education/Training Program; Referring Provider Orthopaedic Surgery Foot and Ankle Surgery; Visit Provider Orthopaedic Surgery Foot and Ankle Surgery
PROC: (CPT 28485; principal; 2023-02-01 12:30)
DX: S93.325A Dislocation of tarsometatarsal joint of left foot, initial encounter (principal); G89.18 Other acute postprocedural pain; X50.1XXA Overexertion from prolonged static or awkward postures, initial encounter; E11.9 Type 2 diabetes mellitus without complications; Z79.84 Long term (current) use of oral hypoglycemic drugs; M25.775 Osteophyte, left foot; M19.072 Primary osteoarthritis, left ankle and foot
CPT/HCPCS: 28740; 64450; 73630; 76000; J0171; J0690; J1885; J2405; J2704; J2765; J3010; J3410

== ENCOUNTER → 2023-08-23 10:47 | Outpatient (CLI) | payer OTHER, SELFPAY ==
[2020-10-28 01:07] VITALS: BMI 35.5
--- NOTE | 2023-08-23 10:48 | DI.RAD.S_ITS ---
PROCEDURE: XR CHEST 2V INDICATIONS: chest congestion, rule out pneumonia TECHNIQUE: 2 views of the chest were acquired. COMPARISON: [facility], CR, XR CHEST 2V, 11/14/2022, 16:06. FINDINGS: Surgical changes and devices: Clips overlying the left breast. Lungs and pleura: Lungs are clear. No pleural effusions or pneumothorax. Mediastinum: Mediastinal contours are normal. Heart size is normal. Bones and chest wall: No suspicious bony abnormalities. Soft tissues appear unremarkable. IMPRESSION: No acute cardiopulmonary abnormality is seen. Dictated by: Dino Hillman M.D. on 08/23/2023 at 16:08 Approved by: Dino Hillman M.D. on 08/23/2023 at 16:09
== END ==
PROVIDERS: PCP Student in an Organized Health Care Education/Training Program; Referring Provider Nurse Practitioner Family; Visit Provider Nurse Practitioner Family
DX: R09.89 Other specified symptoms and signs involving the circulatory and respiratory systems (principal)
CPT/HCPCS: 71046

== ENCOUNTER → 2023-10-29 11:44 | Outpatient (CLI) | payer OTHER, SELFPAY ==
[2020-10-28 01:07] VITALS: BMI 35.5
--- NOTE | 2023-10-29 11:46 | DI.MG.S_ITS ---
BILATERAL DIGITAL SCREENING MAMMOGRAM 3D/2D WITH CAD POST LUMPECTOMY: 10/29/2023 CLINICAL: Routine screening. Personal history of left breast cancer. Comparison is made to exams dated: 08/14/2022 mammogram, 01/06/2021 mammogram, 08/03/2014 mammogram, and 03/07/2021 breast MRI - [facility]. There are scattered areas of fibroglandular density in both breasts (category b / 25%-50% glandular tissue). Current study was also evaluated with a Computer Aided Detection (CAD) system. There are benign post operative findings in the left breast. No significant masses, calcifications, or other findings are seen in either breast. There has been no significant interval change. IMPRESSION: BENIGN There is no mammographic evidence of malignancy. A 1 year screening mammogram is recommended. This exam was interpreted at Station ID: [id number]. NOTE: For mammograms, a report in lay terms will be sent to the patient. Approximately 15% of breast malignancies will not be visualized mammographically. In the management of a palpable breast mass, a negative mammogram must not discourage biopsy of a clinically suspicious lesion. Electronically Signed By: Dino buckley/yosi:10/29/2023 13:25:01 copy to: Emmy Jc letter sent: Normal Exam ACR BI-RADS Category 2: Benign Finding(s) 3342F
== END ==
PROVIDERS: PCP Student in an Organized Health Care Education/Training Program; Referring Provider Student in an Organized Health Care Education/Training Program; Visit Provider Student in an Organized Health Care Education/Training Program
DX: Z12.31 Encounter for screening mammogram for malignant neoplasm of breast (principal); R92.323 Mammographic fibroglandular density, bilateral breasts; Z85.3 Personal history of malignant neoplasm of breast
CPT/HCPCS: 77063; 77067

== ENCOUNTER → 2023-12-27 17:55 | Outpatient (CLI) | payer OTHER, SELFPAY ==
[2020-10-28 01:07] VITALS: BMI 35.5
== END ==
PROVIDERS: PCP Student in an Organized Health Care Education/Training Program; Referring Provider Physician Assistant Medical; Visit Provider Physician Assistant Medical
DX: T14.8XXA Other injury of unspecified body region, initial encounter (principal); L08.9 Local infection of the skin and subcutaneous tissue, unspecified; L02.211 Cutaneous abscess of abdominal wall
CPT/HCPCS: 87070; 87075; 87205

== ENCOUNTER → 2024-01-02 09:38 | Outpatient (CLI) | payer OTHER, SELFPAY ==
[2020-10-28 01:07] VITALS: BMI 35.5
[2024-01-02 10:39] LABS: Add Manual Diff / Slide Review NO; Basophils Absolute Auto 0 /uL (0-100); Basophils Percent Auto 0.6 % (0-2); Eosinophils Absolute Auto 400 /uL (0-450); Eosinophils Percent Auto 5.9 % (2-4); Hematocrit 38.9 % (36-46); Hemoglobin 12.8 g/dL (12.0-16.0); Lymphocytes Absolute Auto 1700 /uL (1100-4500); Lymphocytes Percent Auto 24.8 % (25-40); Mean Corpuscular HGB Conc 32.9 % (30-36); Mean Corpuscular Hemoglobin 29.7 PG (26-34); Mean Corpuscular Volume 90.3 fL (80-100); Monocytes Absolute Auto 600 /uL (0-900); Monocytes Percent Auto 8.5 % (3-14); Neutrophils Absolute Auto 4200 /uL (1500-7000); Neutrophils Percent Auto 60.2 % (50-75); Platelet Count 283 X10^3/uL (150-400); Red Blood Cell Count 4.31 X10^6/uL (4.0-5.2); Red Cell Distribution Width 13.5 % (11.6-14.8)
[2024-01-02 11:06] LABS: Alanine Aminotransferase 20 IU/L (<35); Albumin 4.3 g/dL (3.5-5.0); Albumin Globulin Ratio 1.9 (1.0-2.8); Alkaline Phosphatase 56 U/L (38-126); Aspartate Aminotransferase 19 IU/L (14-36); Bilirubin Total 0.7 mg/dL (0.2-1.3); Bilirubin Unconjugated 0.4 mg/dL (0.0-1.1); Globulin 2.3 g/dL (1.7-4.1); HEMOLYSIS < 15 (0-50); Total Protein 6.6 g/dL (6.3-8.2)
== END ==
PROVIDERS: PCP Student in an Organized Health Care Education/Training Program; Referring Provider Podiatrist; Visit Provider Podiatrist
DX: B35.1 Tinea unguium (principal)
CPT/HCPCS: 36415; 80076; 85025

== ENCOUNTER 2024-01-08 17:36 | Emergency (ER) | payer OTHER, SELFPAY ==
[2020-10-28 01:07] VITALS: BMI 35.5
[2024-01-08 18:12] VITALS: BP 171/78; PULSE 96; RESP 18; TEMP 37; O2SAT 100; BMI 31.9
[2024-01-08 21:02] VITALS: BP 167/79; PULSE 90; O2SAT 98
--- NOTE | 2024-01-08 21:21 | ED.GENADULT ---
HPI - General Adult General Chief complaint: Hypertension Stated complaint: hbp 155/98, lightheaded, sent by pcp Time Seen by Provider: 01/08/24 21:04 Source: patient Mode of arrival: Ambulatory History of Present Illness HPI narrative: 58-year-old female with history of cht-[id number]-[id number] diabetes, history of breast cancer status post lumpectomy, chemo, currently on anastrozole presents for lightheaded sensation and elevated blood pressure readings today. Patient reports feeling symptoms throughout the day. At work she checked her blood pressure and it was greater than 160 systolic. She called her primary care doctor who referred her to the ER for evaluation. Patient states that she was currently undergoing a divorce right now and is under a lot of stress, which she feels may be contributing to her symptoms and her elevated blood pressure reading. in the ED patient reports current symptoms as exhausted and hungry Related Data Home Medications Medication Instructions Recorded Confirmed anastrozole 1 mg tablet 1 mg PO DAILY 10/18/22 01/02/24 oxybutynin chloride 5 mg tablet 5 mg PO BID 10/18/22 01/02/24 cetirizine 10 mg tablet (Zyrtec) 10 mg PO DAILY 01/30/23 01/02/24 Previous Rx's Medication Instructions Recorded doxycycline hyclate 100 mg capsule 100 mg PO BID #14 caps 12/27/23 metformin 500 mg tablet 250 mg (1/2 x 500 mg) PO BID #30 01/02/24 tabs semaglutide 0.25 mg or 0.5 mg (2 0.5 mg (0.736 mL) SUBCUT QWEEK #3 01/02/24 mg/3 mL) subcutaneous pen injector mL (Ozempic) Allergies Allergy/AdvReac Type Severity Reaction Status Date / Time No Known Drug Allergies Allergy Verified 01/02/24 09:01 Patient History Medical History History of COVID-19 (09/2020) Neuropathy History of tachycardia Anesthesia complication Diabetes Surgical History Hx of lumpectomy (03/2021) History of hysterectomy Family History Mother Diabetes mellitus Father Diabetes mellitus Social History household members: spouse and children Smoking Status: Never smoker alcohol intake: current Smoking Status: Never smoker alcohol intake frequency: holidays/special occasions only Substance Use Type: does not use Exam Initial Vital Signs Initial Vital Signs: Vital Signs Temperature 98.6 F 01/08/24 18:12 Pulse Rate 96 H 01/08/24 18:12 Respiratory Rate 18 01/08/24 18:12 Blood Pressure 171/78 H 01/08/24 18:12 Pulse Oximetry 100 01/08/24 18:12 Oxygen Delivery Method Room Air 01/08/24 18:12 Const: Awake, alert, no acute distress, nontoxic appearing Cardiac: regular rate, regular rhythm RESP: unlabored, clear bilaterally, no wheezing MSK: Atraumatic, full range of motion, pulses equal Skin: Warm, Dry, intact, no rashes Neuro: AO x3, CN II-XII grossly intact, moves all extremities Course Orders Ordered: ED Orders 01/08/24 21:21 EKG-12 Lead Stat 01/08/24 21:30 CBC Auto Diff [Complete Blood Count AUTO DIFF] Stat CMP [Comprehensive Metabolic Panel] Stat 01/08/24 21:56 UA Complete [Urinalysis and Microscopic] Stat Vital Signs Vital signs: Vital Signs - 8 hr 01/08/24 18:12 01/08/24 21:02 01/08/24 21:02 Temperature 98.6 F Pulse Rate 96 H 90 Respiratory Rate 18 Blood Pressure 171/78 H 167/79 H Pulse Oximetry 100 98 Oxygen Delivery Method Room Air 01/08/24 21:30 01/08/24 21:30 Temperature Pulse Rate 74 Respiratory Rate 18 Blood Pressure 163/76 H Pulse Oximetry 100 Oxygen Delivery Method Medical Decision Making Lab Data 01/08/24 21:30 01/08/24 21:30 Labs: Lab Results 01/08/24 01/08/24 Range/Units 21:30 21:56 WBC 7.2 (4.5-11.0) X10^3/uL RBC 4.23 (4.0-5.2) X10^6/uL Hgb 12.8 (12.0-16.0) g/dL Hct 37.9 (36-46) % MCV 89.5 (80-100) fL MCH 30.1 (26-34) PG MCHC 33.7 (30-36) % RDW 13.6 (11.6-14.8) % Plt Count 281 (150-400) X10^3/uL Neut % (Auto) 56.5 (50-75) % Lymph % (Auto) 29.6 (25-40) % [place] % (Auto) 7.2 (3-14) % Eos % (Auto) 5.8 H (2-4) % Baso % (Auto) 0.9 (0-2) % Neut # (Auto) 4000 (2269-4701) /uL Lymph # (Auto) 2100 (8295-2240) /uL [place] # (Auto) 500 (0-900) /uL Eos # (Auto) 400 (0-450) /uL Baso # (Auto) 100 (0-100) /uL Sodium 137 (137-145) mmol/L Potassium 4.0 (3.4-5.1) mmol/L Chloride 105 (98-107) mmol/L Carbon Dioxide 28 (22-32) mmol/L BUN 10 (7-17) mg/dL Creatinine 0.62 (0.52-1.04) mg/dL Estimated GFR > 60 (>60) mL/min BUN/Creatinine Ratio 16.1 (6-22) Glucose 120 H (80-110) mg/dL Calcium 9.4 (8.4-10.2) mg/dL Total Bilirubin 0.6 (0.2-1.3) mg/dL AST 24 (14-36) IU/L ALT 22 (<35) IU/L Alkaline Phosphatase 44 (38-126) U/L Total Protein 7.1 (6.3-8.2) g/dL Albumin 4.1 (3.5-5.0) g/dL Globulin 3.0 (1.7-4.1) g/dL Albumin/Globulin Ratio 1.4 (1.0-2.8) Urine Color Yellow Urine Appearance Clear Urine pH 7.0 (4.5-8.0) Ur Specific [place] 1.010 (1.000-1.035) Urine Protein Negative (Negative) Urine Glucose (UA) Negative (Negative) g/dL Urine Ketones Negative (NEGATIVE) Urine Occult Blood Negative (Negative) Urine Nitrate Negative (Negative) Urine Bilirubin Negative (NEGATIVE) Urine Urobilinogen 0.2 (0.2) E.U./dL Ur Leukocyte Esterase Negative (NEGATIVE) Urine RBC None seen (0-5/HPF) Urine WBC None seen (0-5/HPF) Ur Squamous Epith Cells 0-1 /hpf (0-5/HPF) Urine Bacteria None seen (None) Ur Culture Indicated? Cult not indicated Vol Urine Centrifuged 10ml (spun) MDM Narrative Medical decision making narrative: Well-appearing patient with lightheaded sensation and elevated blood pressure readings today at home. Patient has no red flag symptoms of hypertensive emergency, she denies chest pain, shortness of breath, leg swelling, worst headache of life, vision changes. Does not take medications for blood pressure currently. Laboratory work reviewed, no evidence of end-organ damage, no proteinuria. Patient counseled on lab findings, recommended purchasing a blood pressure cuff and taking daily measurements to bring to her primary care doctor. Discharge Plan Departure Patient Disposition: Home Clinical Impression: Elevated blood pressure reading Instructions: DI for High Blood Pressure Activity Restrictions/Additional Instructions: You did have some elevated blood pressure readings here today in the emergency department, however your laboratory work was normal with no signs of organ damage. By a blood pressure cuff for home use and measure your blood pressure once in the morning and once at night. Bring these results to your primary care doctor. They will determine if you need to start any medications for your blood pressure. If you notice chest pain, shortness of breath, the worst headache of your life, leg swelling, or any other concerning symptoms please return to the emergency department for evaluation. Prescriptions: No Action metformin 500 mg tablet 250 mg PO BID Qty: 30 3RF Ozempic 0.25 mg or 0.5 mg (2 mg/3 mL) pen injector 0.5 mg SUBCUT QWEEK Qty: 3 6RF doxycycline hyclate 100 mg capsule 100 mg PO BID Qty: 14 0RF anastrozole 1 mg tablet 1 mg PO DAILY oxybutynin chloride 5 mg tablet 5 mg PO BID cetirizine [Zyrtec] 10 mg Tablet 10 mg PO DAILY Referrals: Daisy Fletcher MD [Primary Care Provider] - Stand Alone Forms: Patient Portal/API/Survey
--- NOTE | 2024-01-08 21:29 | EKG_ITS ---
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
[2024-01-08 21:30] VITALS: BP 163/76; PULSE 74; RESP 18; O2SAT 100
[2024-01-08 21:40] LABS: Add Manual Diff / Slide Review NO; Basophils Absolute Auto 100 /uL (0-100); Basophils Percent Auto 0.9 % (0-2); Eosinophils Absolute Auto 400 /uL (0-450); Eosinophils Percent Auto 5.8 % (2-4); Hematocrit 37.9 % (36-46); Hemoglobin 12.8 g/dL (12.0-16.0); Lymphocytes Absolute Auto 2100 /uL (1100-4500); Lymphocytes Percent Auto 29.6 % (25-40); Mean Corpuscular HGB Conc 33.7 % (30-36); Mean Corpuscular Hemoglobin 30.1 PG (26-34); Mean Corpuscular Volume 89.5 fL (80-100); Monocytes Absolute Auto 500 /uL (0-900); Monocytes Percent Auto 7.2 % (3-14); Neutrophils Absolute Auto 4000 /uL (1500-7000); Neutrophils Percent Auto 56.5 % (50-75); Platelet Count 281 X10^3/uL (150-400); Red Blood Cell Count 4.23 X10^6/uL (4.0-5.2); Red Cell Distribution Width 13.6 % (11.6-14.8); White Blood Cell Count 7.2 X10^3/uL (4.5-11.0)
[2024-01-08 21:50] LABS: Alanine Aminotransferase 22 IU/L (<35); Albumin 4.1 g/dL (3.5-5.0); Albumin Globulin Ratio 1.4 (1.0-2.8); Alkaline Phosphatase 44 U/L (38-126); Aspartate Aminotransferase 24 IU/L (14-36); BUN Creatinine Ratio 16.1 (6-22); Bilirubin Total 0.6 mg/dL (0.2-1.3); Blood Urea Nitrogen 10 mg/dL (7-17); Calcium 9.4 mg/dL (8.4-10.2); Carbon Dioxide 28 mmol/L (22-32); Chloride 105 mmol/L (98-107); Estimated Glomerular Filt Rate > 60 mL/min (>60); Glucose 120 mg/dL (80-110); HEMOLYSIS < 15 (0-50); Sodium 137 mmol/L (137-145); Total Protein 7.1 g/dL (6.3-8.2)
[2024-01-08 22:45] LABS: Appearance Urine UA CLEAR; Bilirubin Urine UA NEGATIVE (NEGATIVE); Color Urine UA YELLOW; Glucose Urine UA NEGATIVE (Negative); Ketones Urine UA NEGATIVE (NEGATIVE); Leukocyte Esterase Urine UA NEGATIVE (NEGATIVE); Nitrite Urine UA NEGATIVE (Negative); Occult Blood Urine UA NEGATIVE (Negative); Protein Urine UA NEGATIVE (Negative); Urobilinogen Urine UA 0.2 E.U./dL (0.2)
[2024-01-08 22:58] VITALS: BP 166/78; PULSE 97; RESP 18; TEMP 36.9; O2SAT 98
[2024-01-08 23:06] LABS: Bacteria Urine None Seen; Culture Indicated Urine Cult Not Indicated; RBC Urine None Seen (0-5/HPF); Squamous Epithelial Cell Urine 0-1 /HPF (0-5/HPF); Urine Volume 10mL (spun); WBC Urine None Seen (0-5/HPF)
== END 2024-01-08 23:06 | disposition home or self-care (01) ==
PROVIDERS: Emergency Provider Emergency Medicine; PCP Student in an Organized Health Care Education/Training Program
DX: R03.0 Elevated blood-pressure reading, without diagnosis of hypertension (principal); R42 Dizziness and giddiness; R07.9 Chest pain, unspecified
CPT/HCPCS: 36415; 80053; 81001; 85025; 93005; 99283; 99284

== ENCOUNTER → 2024-02-08 18:32 | Outpatient (CLI) | payer OTHER, SELFPAY ==
[2020-10-28 01:07] VITALS: BMI 35.5
== END ==
PROVIDERS: PCP Student in an Organized Health Care Education/Training Program; Visit Provider Physician Assistant Surgical
DX: R30.0 Dysuria (principal)
CPT/HCPCS: 87077; 87086; 87186

== ENCOUNTER → 2024-04-09 09:04 | Outpatient (CLI) | payer OTHER, SELFPAY ==
[2020-10-28 01:07] VITALS: BMI 35.5
[2024-04-09 10:07] LABS: Add Manual Diff / Slide Review NO; Basophils Absolute Auto 0 /uL (0-100); Basophils Percent Auto 0.7 % (0-2); Eosinophils Absolute Auto 200 /uL (0-450); Eosinophils Percent Auto 3.1 % (2-4); Hematocrit 39.3 % (36-46); Hemoglobin 13.2 g/dL (12.0-16.0); Lymphocytes Absolute Auto 1200 /uL (1100-4500); Lymphocytes Percent Auto 23.1 % (25-40); Mean Corpuscular HGB Conc 33.5 % (30-36); Mean Corpuscular Hemoglobin 30.3 PG (26-34); Mean Corpuscular Volume 90.4 fL (80-100); Monocytes Absolute Auto 500 /uL (0-900); Monocytes Percent Auto 8.7 % (3-14); Neutrophils Absolute Auto 3400 /uL (1500-7000); Neutrophils Percent Auto 64.4 % (50-75); Platelet Count 271 X10^3/uL (150-400); Red Blood Cell Count 4.34 X10^6/uL (4.0-5.2); Red Cell Distribution Width 13.8 % (11.6-14.8); White Blood Cell Count 5.3 X10^3/uL (4.5-11.0)
[2024-04-09 10:25] LABS: Hemoglobin A1C% w Est Avg Glu 5.6 % (4.0-6.0)
[2024-04-09 10:33] LABS: Alanine Aminotransferase 32 IU/L (<35); Albumin 4.5 g/dL (3.5-5.0); Alkaline Phosphatase 55 U/L (38-126); Aspartate Aminotransferase 22 IU/L (14-36); Bilirubin Total 0.7 mg/dL (0.2-1.3); Calcium 9.6 mg/dL (8.4-10.2); Carbon Dioxide 26 mmol/L (22-32); Chloride 106 mmol/L (98-107); Cholesterol 220 mg/dL (140-199); Globulin 2.3 g/dL (1.7-4.1); Glucose 96 mg/dL (80-110); HDL Cholesterol 62 mg/dL (40-60); HEMOLYSIS < 15 (0-50); LDL Cholesterol Calculated 134 mg/dL (<100); Potassium 4.6 mmol/L (3.4-5.1); Sodium 139 mmol/L (137-145); Total Protein 6.8 g/dL (6.3-8.2); Triglycerides 122 mg/dL (35-150)
[2024-04-09 10:34] LABS: BUN Creatinine Ratio 15.4 (6-22); Blood Urea Nitrogen 12 mg/dL (7-17); Estimated Glomerular Filt Rate > 60 mL/min (>60)
[2024-04-09 10:44] LABS: Free T3, Triiodothyronine Free 3.93 pg/mL (2.77-5.27); Free T4, Direct Thyroxine 0.96 ng/dL (0.78-2.19)
[2024-04-09 10:58] LABS: Thyroid Stimulating Hormone 1.23 uIU/mL (0.47-4.68)
[2024-04-09 11:23] LABS: Creatinine Urine Random 102.19 mg/dL
== END ==
PROVIDERS: PCP Student in an Organized Health Care Education/Training Program; Referring Provider Student in an Organized Health Care Education/Training Program; Visit Provider Student in an Organized Health Care Education/Training Program
DX: E11.9 Type 2 diabetes mellitus without complications (principal); R22.1 Localized swelling, mass and lump, neck; Z87.898 Personal history of other specified conditions
CPT/HCPCS: 36415; 80053; 80061; 82043; 82570; 83036; 84439; 84443; 84481; 85025

== ENCOUNTER → 2024-08-14 15:10 | Outpatient (CLI) | payer OTHER, SELFPAY ==
[2020-10-28 01:07] VITALS: BMI 35.5
[2024-07-31 16:05] VITALS: BMI 35.5
--- NOTE | 2024-08-14 15:12 | DI.RAD.S_ITS ---
PROCEDURE: XR DEXA AXIAL SKELETON INDICATIONS: SCREENIGN COMPARISON: None. FINDINGS: Lumbar Spine (L4 excluded due to increased density): Bone mineral density 1.086 g/cm2, T score 0.6, baseline. Left Femoral Neck: Bone mineral density 0.962 g/cm2, T score 1.0. Left Hip: Bone mineral density 1.121 g/cm2, T score 1.5, baseline. Fracture Risk Calculation (when applicable): Not reported due to normal bone mineralization. (T score greater or equal to -1.0 to: NORMAL) (T score from -1.1 to -2.4: OSTEOPENIA) (T score less than or equal to -2.5: OSTEOPOROSIS) IMPRESSION: Normal bone mineralization. Follow-up guidelines as follows: Osteoporosis: Consider a repeat DEXA and Vertebral Fracture Assessment (VFA) exam in 2 years or sooner if medically necessary, to reassess this patient's status. Osteopenia: Consider a repeat DEXA in 2-3 years to reassess this patient's status, or if there is a new clinical indication. Normal: Consider a repeat DEXA in 5 years or sooner, or if there is a new clinical indication. All treatment decisions require clinical judgment and consideration of individual patient factors, including patient preferences, comorbidities, previous drug use, risk factors not captured in the FRAX model (e.g., frailty, falls, vitamin D deficiency, increased bone turnover, interval significant decline in bone density ) and possible under- or over-estimation of fracture risk by FRAX. In addition, the NOF Guide recommends that FDA-approved medical therapies be considered in postmenopausal women and men age >= 50 years with a: * Hip or vertebral (clinical or morphometric) fracture * T-score of <=-2.5 at the spine or hip * Ten-year fracture probability by FRAX of >= 3% for hip fracture or >=20% for major osteoporotic fracture. Dictated by: Jarrett Huber M.D. on 08/14/2024 at 21:15 Approved by: Jarrett Huber M.D. on 08/14/2024 at 21:17
--- NOTE | 2024-08-14 15:12 | DI.US.S_ITS ---
PROCEDURE: US SOFT TISSUE HEAD AND NECK INDICATIONS: Neck Mass TECHNIQUE: Real-time scanning was performed of the neck region of interest, with image documentation. COMPARISON: None. FINDINGS: There is a prominent node within the left submandibular region that likely corresponds as palpated. This no demonstrates a 3 mm thick cortex and a normal fatty hilum. On the right, there is a prominent node which likely corresponds as palpated. This no demonstrates a normal fatty hilum and has a cortex which measures up to 6 mm focally. IMPRESSION: 1. Normal left submandibular lymph node as above. 2. Focal cortical thickening of a right submandibular lymph node which corresponds as palpated. There is a normal fatty hilum. Findings suggest a reactive node. Consider short interval follow-up to ensure resolution of this finding. Dictated by: Hillary Montemayor M.D. on 08/14/2024 at 16:47 Approved by: Hillary Montemayor M.D. on 08/14/2024 at 16:53
== END ==
LOC: US 15:11
PROVIDERS: PCP Student in an Organized Health Care Education/Training Program; Referring Provider Student in an Organized Health Care Education/Training Program; Visit Provider Student in an Organized Health Care Education/Training Program
DX: C50.512 Malignant neoplasm of lower-outer quadrant of left female breast (principal); R22.1 Localized swelling, mass and lump, neck; Z17.0 Estrogen receptor positive status [ER+]; Z79.811 Long term (current) use of aromatase inhibitors
CPT/HCPCS: 36415; 76536; 77080; 80053; 85025

== ENCOUNTER → 2024-08-14 15:13 | Outpatient (CLI) | payer OTHER, SELFPAY ==
[2024-07-31 16:05] VITALS: BMI 35.5
[2024-08-14 16:43] LABS: Add Manual Diff / Slide Review NO; Basophils Absolute Auto 100 /uL (0-100); Basophils Percent Auto 0.6 % (0-2); Eosinophils Absolute Auto 400 /uL (0-450); Eosinophils Percent Auto 5.2 % (2-4); Hematocrit 38.7 % (36-46); Lymphocytes Absolute Auto 2200 /uL (1100-4500); Lymphocytes Percent Auto 26.3 % (25-40); Mean Corpuscular HGB Conc 33.5 % (30-36); Mean Corpuscular Hemoglobin 30.1 PG (26-34); Mean Corpuscular Volume 89.8 fL (80-100); Monocytes Absolute Auto 700 /uL (0-900); Monocytes Percent Auto 8.9 % (3-14); Neutrophils Absolute Auto 5000 /uL (1500-7000); Platelet Count 287 X10^3/uL (150-400); Red Blood Cell Count 4.31 X10^6/uL (4.0-5.2); Red Cell Distribution Width 13.9 % (11.6-14.8); White Blood Cell Count 8.4 X10^3/uL (4.5-11.0)
[2024-08-14 17:34] LABS: Alanine Aminotransferase 20 IU/L (<35); Albumin 4.2 g/dL (3.5-5.0); Albumin Globulin Ratio 1.7 (1.0-2.8); Alkaline Phosphatase 52 U/L (38-126); Aspartate Aminotransferase 21 IU/L (14-36); BUN Creatinine Ratio 24.1 (6-22); Bilirubin Total 0.3 mg/dL (0.2-1.3); Blood Urea Nitrogen 19 mg/dL (7-17); Calcium 9.5 mg/dL (8.4-10.2); Carbon Dioxide 28 mmol/L (22-32); Chloride 104 mmol/L (98-107); Estimated Glomerular Filt Rate > 60 mL/min (>60); Globulin 2.5 g/dL (1.7-4.1); Glucose 76 mg/dL (70-99); HEMOLYSIS < 15 (0-50); Potassium 4.2 mmol/L (3.4-5.1); Sodium 139 mmol/L (137-145); Total Protein 6.7 g/dL (6.3-8.2)
== END ==
PROVIDERS: PCP Student in an Organized Health Care Education/Training Program; Referring Provider Internal Medicine Medical Oncology; Visit Provider Internal Medicine Medical Oncology
DX: C50.512 Malignant neoplasm of lower-outer quadrant of left female breast (principal)
CPT/HCPCS: 36415; 80053; 85025

== ENCOUNTER → 2024-08-17 09:12 | Outpatient (CLI) | payer OTHER, SELFPAY ==
[2024-07-31 16:05] VITALS: BMI 35.5
[2024-08-17 10:25] LABS: Cholesterol 224 mg/dL (140-199); HDL Cholesterol 73 mg/dL (40-60); LDL Cholesterol Calculated 131 mg/dL (<100); Triglycerides 99 mg/dL (35-150)
[2024-08-17 13:09] LABS: Appearance Urine UA CLEAR; Bilirubin Urine UA NEGATIVE (NEGATIVE); Color Urine UA YELLOW; Glucose Urine UA NEGATIVE (Negative); Ketones Urine UA NEGATIVE (NEGATIVE); Leukocyte Esterase Urine UA NEGATIVE (NEGATIVE); Nitrite Urine UA POSITIVE (Negative); Occult Blood Urine UA NEGATIVE (Negative); Protein Urine UA NEGATIVE (Negative); Specific Gravity Urine UA 1.025 (1.000-1.035)
[2024-08-17 13:22] LABS: pH Urine UA 5.5 (4.5-8.0)
[2024-08-17 13:23] LABS: Urine Volume 10mL (spun)
[2024-08-17 13:24] LABS: Amorphous Sediment Urine 4+; Bacteria Urine Many (>30); Culture Indicated Urine Specimen Cultured; RBC Urine 1-5/HPF (0-5/HPF); Squamous Epithelial Cell Urine 1-5 /HPF (0-5/HPF); WBC Urine 1-5/HPF (0-5/HPF)
== END ==
PROVIDERS: Obstetrics & Gynecology Gynecology; PCP Student in an Organized Health Care Education/Training Program; Referring Provider Student in an Organized Health Care Education/Training Program; Visit Provider Student in an Organized Health Care Education/Training Program
DX: E78.00 Pure hypercholesterolemia, unspecified (principal); E66.9 Obesity, unspecified
CPT/HCPCS: 36415; 80061; 81001; 87077; 87086; 87186

== ENCOUNTER 2024-09-15 10:06 | Day surgery (SDC) | payer OTHER, SELFPAY ==
[2024-07-31 16:05] VITALS: BMI 35.5
--- NOTE | 2024-09-14 17:54 | PM.GYNHP.1 ---
History of Present Illness History of Present Illness Narrative: Virgen Roberts is a 58 year old female Date of procedure: September 15, 2024 Preoperative diagnosis:? Cystocele, Vaginal vault prolapse Rectocele Urethral hypermobility at risk of postoperative stress incontinence Planned Procedure:?? Robotic laparoscopic sacral colpopexy Cystoscopy Possible mid urethral sling Possible low posterior colporrhaphy She also still has her ovaries and she might desire a prophylactic oophorectomy. History of breast cancer, in remission Postop Meds Tylenol 1000 mg, ?3 times a day? motrin 600 mg (under age 65 yr) ,? 3 times a day Oycodone 5 mg,? take 1 pill every 4-6 hr as needed, # 15? Colace,? 1 pill BID, for constipation CC: Vaginal prolapse HPI: 58-year-old female who presents for evaluation of above complaint.?? She reports onset of symptoms 10 years ago.?? She considers this a? Moderate? problem. She notes a vaginal bulge that comes to the vaginal opening. She also has prolapse symptoms of heaviness straining for bowel movements and occasionally splinting for bowel movements. She feels like she empties her bladder well. She is considering prolapse surgery. She has a prior hysterectomy at age 35 and 2001 done laparoscopically. She still has her ovaries She has a history of breast cancer diagnosed in 2020. Currently using anastrozole. Also uses as impact. We discussed stopping this if she has surgery Also takes oxybutynin 5 mg twice daily for hot flashes. We discussed possibly reducing this dose to see if needed. She does know that if she stops completely the symptoms recur. She does not have overactive bladder. Voids every 3-4 hours in the day 0 to once at night. Occasionally some urgency. No urgency incontinence. She does have some stress incontinence with triggers of sneeze and cough and straining. Occurs once or twice a week. Uses 1 mini pad a day. We discussed how the stress incontinence potentially could get worse with the prolapse repair and that if she chooses prolapse surgery, she might also need a sling for stress incontinence. That risk is about 25%. prior hyst -yes -x2 c-sec -0 ? Pelvic Floor Review of Systems: (HPI) Stress Urinary Incontinence symptoms (SHOSHANA): 1 to 2 times a week Triggers include: Cough sneeze strain ? Urge Incontinence symptoms (Urge UI): Rare Triggers include: Full bladder with urge ? Pads: She wears 1 mini pad a day Overactive Bladder symptoms (OAB):? ? Frequency: Every 3-4 hour Nocturia: 0-1 ? Urgency: Moderate Prior incontinence treatment includes:? Medical: Yes, but not for her bladder. See above. ? Surgical:? No ? Kegels:?? Yes Physical therapy:?No? Pessary:?No? Diet / Fluids: Fluid restriction:? No Excessive fluids:?No Pain symptoms:? Painful bladder:???No Dysuria:???No Dyspareunia:? No Dysmenorrhea:? No Urinary Risk Factors UTI?s, recurrent: No Hematuria:? No Kidney Stones:?No? Tobacco use:? No Pelvic Organ Prolapse (POP) symptoms:?? Bulge: Yes Pressure and /or Heaviness: Yes Splint for defecation or voiding: Yes Voiding dysfunction: Abnormal stream:?No Strain to void:? No Incomplete emptying:?No Voiding difficulty:?No Retention:??? No Bowel Function: Constipation: Yes Strain to defecate: Yes Fiber: No Laxatives: No Fecal Incontinence:? Liquid stool:? No Solid stool:?No?? Sexually active:?No Incontinence with sex:? No ? General Review of Systems: Constitutional, CV, Endo, Musc-skel, Eyes, Cancer, Skin, Breast, GI, Heme/Lymph, Psych, Urinary, Neuro, Instant Powder Supervisor, Resp, Sexual:??? Pertinent positives listed above in HPI All others reviewed and negative. . . [facility] Medical History (Updated 08/17/24 @ 11:12 by Clem Pruitt MD) Urethral hypermobility Vaginal vault prolapse Rectocele Cystocele, midline History of COVID-19 (09/2020) Neuropathy History of tachycardia Anesthesia complication Diabetes Surgical History Hx of lumpectomy (03/2021) History of hysterectomy Family History Mother Diabetes mellitusFather Diabetes mellitus Social History household members: spouse and children Tobacco & Substance Use Smoking Status: Never smoker alcohol intake: current UroGyn Exam UroGyn Exam UroGyn Exam Narrative: 196 lb. 5 ft 6 in. BMI 31.6 General: healthy, alert, coherent, no acute distress, cooperative, nontoxic Pulmonary: normal breathing, no distress Abdomen: soft, no mass, non-distended, no hernia, non-tender Skin: Scars on Abd: Laparoscopy Vulva: Normal labia majora, labia minora, introitus, and clitoris, non-tender Urethra meatus: normal, no discharge Perineum: Normal, non-tender Urethra: No mass, non-tender Bladder: no mass, non-tender Vagina: No lesions, no discharge, mild atrophy, non-tender Prolapse yes, stage II cystocele, rectocele, vaginal vault. Insertion of a large swab supports all 3 compartments, indicating that robotic sacral colpopexy is the best surgery Levators: Non-tender, 1/ 5 kegel squeeze Hysterectomy Bimanual: no mass, no adnexal mass, non-tender Anus: No lesion, non-tender, no hemorrhoid Empty Cough Stress test: Neg PVR: 15 mL by catheter Urethral angle hypermobile: Yes POP-Q Exam: Aa: 0 Ba: +1 Ap: 0 Bp: 0 C: -5 D: Not applicable TVL: 8 GH: 3 PB: 2.0 Introitus size: 2.0 fingerbreadths Cystocele stage: Stage II Rectocele stage: Stage II Uterine/Vault Prolapse Stage: Stage 1-2 Assessment & Plan (1) Cystocele, midline: Status: Acute (2) Rectocele: Status: Acute (3) Vaginal vault prolapse: Status: Acute (4) Urethral hypermobility: Status: Acute 1. Pelvic Organ Prolapse - Stage 2.? This diagnosis and its etiology was discussed with the patient.? Treatment options were discussed including: expectant management, pessary trial, and surgical intervention. We briefly discussed risks and benefits of surgery. All surgery for prolapse is not 100% successful and there is a chance of recurrence or failure. [She declines a Pessary Trial for Prolapse she desires surgery my recommendation = robotic sacral colpopexy, cystoscopy, possible low posterior colporrhaphy, possible mid urethral sling, see below for counseling 2. Urethral hypermobility She is at risk for postoperative stress incontinence from the prolapse repair. Studies show that in women with severe prolapse of the anterior vaginal wall, 25% will have significant stress incontinence, following prolapse repair surgery. So her risk of finding stress incontinence, as below, is 25%. Will plan to diagnose stress incontinence intraoperatively by filling the bladder with 200-300 cc of fluid, and then using a crede maneuver to see if there is leakage of fluid from the urethra. If there is leakage, then stress incontinence will be diagnosed, and she will be treated with a mid urethral sling. Surgical Counselling Note Patient seen for surgical counselling.? She desires surgical repair. Please see? H & P for exam and discussion. Date of procedure: September 15, 2024 Preoperative diagnosis:? Cystocele, Vaginal vault prolapse Rectocele Urethral hypermobility at risk of postoperative stress incontinence Planned Procedure:?? Robotic laparoscopic sacral colpopexy Cystoscopy Possible mid urethral sling Possible low posterior colporrhaphy She also still has her ovaries and she might desire a prophylactic oophorectomy. History of breast cancer, in remission Postop Meds Tylenol 1000 mg, ?3 times a day? motrin 600 mg (under age 65 yr) ,? 3 times a day Oycodone 5 mg,? take 1 pill every 4-6 hr as needed, # 15? Colace,? 1 pill BID, for constipation Patient counseled extensively about the Risks, Benefits, and Alternatives to surgery.? She was offered the opportunity to ask any questions, and all questions were answered. ? Surgical Risks include: Bleeding, Hemorrhage, Transfusion, Infection (especially wound or bladder), Injury to adjacent organs (especially bladder, ureter, bowel, blood vessels, nerves), Postop or Chronic Pain, need for Reoperation, and Life-threatening event (especially M.I., CVA, PE, DVT). Procedure Risks include: Failure to Cure condition, Recurrence of condition months or years later, Urinary incontinence, Voiding dysfunction or Urinary Retention with prolonged catheter use, Poor wound healing, Erosions of any mesh or graft used, Dyspareunia, Vaginal scarring or narrowing, Need for additional surgery (immediate or delayed).? The expected cure and improvement and failure rates were discussed. Patient counseled to avoid the following for 6 weeks after surgery: (1) Impact sports (like running or jumping), walking and stairs OK (2) Lifting over 20# (3) Sexual intercourse No limits after 6 weeks. ? Good exercise tolerance, > 4 Mets. Her current medications were reviewed, and instructions given over which to use and which to discontinue before surgery.? Post-operative care instructions reviewed.? We discussed post-operative pain: Pain should be in the mild-moderate range, but can be moderate-severe for the first few days.?? Prescriptions will typically be given for (1) acetaminophen (Tylenol) and (2) non-steroidal anti-inflammatory drug (NSAID, like Motrin or Naprosyn), use both together, around the clock. Prescription will also be given for a (3) narcotic pain medication. Use the narcotic as needed, as a booster to the Tylenol and NSAID. You might need 0-4 narcotic pills a day typically. The narcotic will only be needed for a few days.?? Gradually use less of the narcotic, but continue the Tylenol and NSAID.? After a few days, the narcotic should no longer be needed, and only the Tylenol and NSAID will be needed.? Warm packs or cold packs can also be used for pain.??Do not drive for as long as you are using the narcotic pain medication? - this should only be a few days.?? Constipation is associated with use of narcotic pain medications, and can be improved with use of a stool softener, or fiber, or a mild laxative.? All of her questions were answered Clem Pruitt MD UroGynecology & Pelvic Reconstructive Surgery [facility] Medical History (Updated 09/14/24 @ 08:01 by Cortney Joseph RN) Thyroid nodule Urethral hypermobility Vaginal vault prolapse Rectocele Cystocele, midline History of COVID-19 (09/2020) Neuropathy History of tachycardia Anesthesia complication Diabetes Surgical History Hx of lumpectomy (03/2021) History of hysterectomy Family History Mother Diabetes mellitus Father Diabetes mellitus Social History household members: spouse and children alcohol intake: current Meds Home Medications and Allergies Home Medications ?Medication ?Instructions ?Recorded ?Confirmed ?Type anastrozole 1 mg tablet 1 mg PO DAILY 10/18/22 07/06/24 History cetirizine 10 mg tablet (Zyrtec) 10 mg PO DAILY 01/30/23 07/06/24 History terbinafine HCl 250 mg tablet 250 mg PO DAILY 02/08/24 07/06/24 History rosuvastatin 5 mg tablet 5 mg PO DAILY #90 tabs 04/15/24 07/06/24 Rx oxycodone 5 mg tablet 5 mg PO Q6H PRN postop pain #15 09/01/24 09/01/24 Rx tabs semaglutide 0.25 mg or 0.5 mg (2 0.5 mg (0.736 mL) SUBCUT QWEEK #3 09/01/24 Rx mg/3 mL) subcutaneous pen injector mL (Ozempic) oxybutynin chloride 5 mg tablet 5 mg PO BID #180 tabs 09/10/24 Rx Allergies Allergy/AdvReac Type Severity Reaction Status Date / Time No Known Drug Allergies Allergy Verified 08/17/24 10:02 Assessment & Plan Assessment and plan (1) Cystocele, midline: Status: Acute (2) Vaginal vault prolapse: Status: Acute Time-Based Coding :: [TOTAL MINUTES] spent with patient and on the chart (including review of chart, obtaining history, exam, reviewing outside data, placing orders, documenting exam and treatment plan, and counseling patient) on [DATE].
[2024-09-15] VITALS (19 sets, daily range): BP systolic 116–157; BP diastolic 49–72; PULSE 63–97; RESP 12–20; TEMP 35.6–36.6; O2SAT 88–989; BMI 31.3
[2024-09-15] MEDS: GABAPENTIN 300 MG CAPSULE PO ×2 (10:49→10:50)
[2024-09-15] MEDS: PHENAZOPYRIDINE 100 MG TABLET 200 MG PO (10:49)
[2024-09-15] MEDS: SCOPOLAMINE 1 PATCH TOP (10:49)
[2024-09-15] MEDS: ACETAMINOPHEN IV 1,000 MG/100 ML VIAL 400 MG IV (10:50)
[2024-09-15] MEDS: LACTATED RINGERS 1,000 ML 42 ML IV ×4 (10:50→17:52)
--- NOTE | 2024-09-15 11:44 | PM.PREOP ---
Pre-operative Note Interval Note History & Physical reviewed/Exam performed by Physician: Yes Changes to H&P: No
[2024-09-15] MEDS: CEFAZOLIN 2 GM/100 ML PREMIX 100 ML IV (12:40)
--- NOTE | 2024-09-15 13:12 | SUR.OPER ---
Lithotomy on padded OR bed. [place] Pad Positioner under torso. Head on pillow, arms padded and tucked at sides. Purple strap across shoulders. Legs secured in padded yellow fins stirrups.
[2024-09-15] MEDS: BUPIVACAINE 0.25% W/ EPI 30 ML VIAL INJ (13:23)
--- NOTE | 2024-09-15 15:41 | P.OP_ITS ---
Operative Date/Time/Diagnoses Date of procedure: 09/15/24 Time of procedure: 13:00 Pre-op diagnosis: cystocele, rectocele, vaginal vault prolapse Post-op diagnosis: same Procedure & Clinicians Procedure: Procedures Operation Date: 09/15/24 11:45 Actual Procedure Side Surgeon p Robotic Sacral colpopexy, cystoscopy Not Applicable Clem Pruitt MD Indications: Operative Note Surgeon:? Clem Pruitt MD Project Construction Assistant Manager:?? none Pre-Op Diagnosis:?? Vaginal vault prolapse, cystocele, rectocele, Post-Op Diagnosis:?? Same? Procedure:?? Robotic assisted laparoscopic sacral colpopexy, cystoscopy Findings (brief): 1. 5 ports, usual fashion.?? No significant Adhesions. Normal ovaries, not removed, per her request. prior Hyst. .? 2.? Restorelle mesh cut to 5 cm Ant and 8 cm Post, attached to vagina with sutures of 2-0 vicyrl.?? Excellent support of all 3 compartments.? 3.? Cystoscopy with normal bladder, ureters, urethra, no injury, bilateral ureteral jets.? 4. Bladder filled to 300 cc, no leak with Crede maneuver, therefore, no Dx of SHOSHANA, so no sling indicated. Date of Surgery:? 09/15/2024 Complications:? none Specimens:? [none Anesthesia Technique:?? [General endotracheal Estimated Blood Loss (mls):? 25 Blood Replacement (mls):? [none Drains:? [Macdonald Condition:? [Stable Procedure in detail: After consent was confirmed, the patient was taken to the operating room and?positioned with the [place] Pad on the OR bed, and then placed under general anesthesia without incident. ?Sequential compression devices were in place and active. ?She received perioperative antibiotics. ?The arms were tucked and her legs were placed in the dorsal lithotomy position using the Abdiaziz stirrups. ??She was then prepped and draped in the usual sterile fashion. ?An examination under anesthesia was consistent with the preoperative assessment. ?A three-way 16 [place] macdonald catheter was placed. ?Attention was turned to the abdomen. All 5 trocar sites were injected with 0.25% Marcaine with epinephrine prior to incision. A supra- umbilical 8?mm port was placed 2-3 cm above the umbilicus: a 8?mm incision was made, the Veress needle was placed, and pneumoperitoneum was achieved at low flow of 5, reaching a pressure of about 12, with 2-3 liters of CO2 gas. ?The abdominal wall was tented out to avoid any injury to underlying structures, and the trocar was introduced into the abdomen with ease, flow turned up to 40, pressure set at 12. ??Three?additional 8 mm robotic ports were placed, along the same line across the abdomen: ?? right lateral abdomen, left mid abdomen, left lateral abdomen,?under direct visualization atraumatically.??An additional contract administrative assistant 8 mm port was placed in the RUQ.?The patient was placed into steep Trendelenberg. ?The [email or web address]?robot was Docked from a side-dock approach, using 3 arms. ?During the dissection, monopolar scissors and bipolar [place]?forceps were used, and during suturing, these were replaced with 2 needle drivers. ?The THE FASHION grasper was used at the 3rd arm for surgical assistance. ?The 4th port was for the surgical nurse practitioner (passing sutures and suction / irrigation). ?At this point, I went to the robotic console to operate the robot.? ?The sigmoid was retracted, and the sacral promontory was identified, and the ureters were identifed lateral to the intended surgical planes.? The bladder was dissected off the vagina for a distance of 5 cm, and the vagina was dissected off the posterior peritoneum, most of the way down the posterior vagina, approx 8 cm. ??The [employer] [facility] Sacral Colpopexy tip with the Bell Arch was used to expose the vagina for dissection. ?Retrograde fill of the bladder facilitated the dissection. ?The peritoneum over the sacral promontory was incised and the dissection was carried down into the pelvis. ?The loose areolar connective tissue overlying the sacral promontory was dissected until the sacrum was clearly identified. ?The anterior arm of the Y-polypropylene mesh was fashioned as noted above, and sutured to the anterior vagina with several interrupted 2-0 vicryl sutures. ?The posterior arm of the mesh was fashioned as noted above, and sutur ed to the posterior vagina with several interrupted 2-0 vicryl sutures. ?The mesh tail was grasped to create a Y shape, cut to the appropriate length, and then attached to the sacral promontory in a tension-free manner, using 2 sutures of 2-0 Ethibond (permanent suture). The sacral peritoneum was closed over the mesh with a running 2-0 PDS / V-Lock suture, and then continued to close the peritoneum over the vaginal part of the mesh. I left the console and scrubbed and gowned and returned to the OR table. The robot was undocked.? All port sites were inspected for hemostasis, and pneumoperitoneum released. The skin incisions were reapproximated with 4-0 monocryl, and then dermabond was placed. ?Attention was turned to the remainder of the vagina where excellent apical support was appreciated. ?Cystourethroscopy was performed which revealed bilateral ureteral efflux of pyridium and no evidence of injury or suture material within the bladder urethra. Bladder filled to 300 cc, no leak with Crede maneuver, when cystoscope removed, therefore, no Dx of SHOSHANA, so no sling indicated. Macdonald reinserted. Sponge, needle and instrument count was correct.? The patient tolerated the procedure well and was taken to the recovery room in stable condition. Clem Pruitt MD UroGynecology & Pelvic Reconstructive Surgery [place], [place] Operative Notes Applied: implant(s) (sacrocolpopexy mesh)
[2024-09-15] MEDS: ONDANSETRON 4 MG/2 ML INJ IV ×2 (15:45→16:31)
[2024-09-15] MEDS: ACETAMINOPHEN 325 MG TABLET 975 MG PO (19:03)
[2024-09-15] MEDS: DOCUSATE 100 MG CAPSULE PO (21:11)
[2024-09-15] MEDS: METOCLOPRAMIDE 10 MG/2 ML INJ IV (21:12)
[2024-09-15] MEDS: KETOROLAC 30 MG/ML VIAL 15 MG IV (21:12)
[2024-09-16] MEDS: ACETAMINOPHEN 325 MG TABLET 975 MG PO ×2 (03:02→11:04)
[2024-09-16] MEDS: KETOROLAC 30 MG/ML VIAL 15 MG IV ×2 (03:02→08:44)
[2024-09-16 03:18] VITALS: BP 131/74; PULSE 75; RESP 13; TEMP 36; O2SAT 97
[2024-09-16 07:33] VITALS: BP 122/59; PULSE 61; RESP 19; TEMP 36.4; O2SAT 99
[2024-09-16] MEDS: DOCUSATE 100 MG CAPSULE PO (08:44)
--- NOTE | 2024-09-16 11:33 | PC.NURSE ---
IV out, went over discharge instructions, follow up care, medications, constipation, pain mangement, and when to come back if symptoms worsen. No further questions. Patient wheeled out via w/c by RN to family vehicle.
--- NOTE | 2024-09-16 11:54 | CM.DANOTE ---
Initial DCP Assessment Visit Note Reviewed EMR and team rounds for pt's medical status and updates. 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 Pt lives independently at baseline in her own home with family in [place]. No CM d/c needs were identified during her stay. Payor: Kaylah Stover Medical Attending: Dr. Campuzano Pt is a 58 year-old F post-op day 1 from a planned cystoscopy/vaginal prolapse surgery. She has a hx of stress urinary incontinece and a vaginal bulge that has worsened in time over the last 10-years. She did well postoperatively, and her pain was well managed at time of d/c. No further needs are identified at this time. She will f/u with Dr. Campuzano OP for surgical f/u. Discharge Planning/Care Management Advanced directive, confirm from FAMILY Start: 09/15/24 17:48 Freq: Q24H Status: Discharge Protocol: Document 09/15/24 23:14 CM (Rec: 09/15/24 23:14 CM Desktop) Advance Directive, confirm on record Time 19:45 Person contacted Pt Copy received No CM Discharge Assessment Start: 09/15/24 16:41 Freq: Status: Discharge Protocol: Document 09/16/24 11:52 DPL (Rec: 09/16/24 11:54 DPL [id number]) Discharge Planning Assessment Assigned Discharge MS KhadijahW [place] Advance Directives? No Advance Directives No on File History Provided By Medical Record Has Patient been No admitted in last 30 days? Prior Living House Arrangements Household Members children Type of Drives own vehicle transporation used prior to admit Independent with ADL Yes 's Is patient alert and Yes oriented? Caregiver for No Another Comment No d/c needs identified at this time. Barriers to No Discharge Discharge Plan Home Transportation Family Arrangement Referrals Initiated None needed Review Status In Process Please Provide Date 09/16/24 Initial DC Assessment Was Performed Pre-Anesthesia Assessment Start: 09/14/24 07:54 Freq: Status: Complete Protocol: Document 09/14/24 07:55 CAB (Rec: 09/14/24 08:05 CAB [id number]) Pre-Anesthesia Assessment PAC Comment Chart review 09/14/24 Patient Information Chart Review Reviewed Via Primary Care Daisy Fletcher Provider Seen Specialist in Yes Last 12 Months Specialist Seen Emergency,Institutional Nutrition Consultant,Urologist Primary Language Maltese Preferred Language Maltese 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 Does patient have No HERNANDEZ/SOB Hx Sleep Apnea No CPAP/BIPAP use not prescribed Currently Taking a No Beta Tae Hx Chest Pain No Hx SOB No Hx Syncope or No Dizziness Anti-Coagulant No Therapy Cardiac Testing No Hx Pacemaker/ICD No Pacemaker Rep No Required? Cardiac Clearance No Received Urinary Catheter No Present Hx Urinary Self No Catheterization Diabetes Yes Presence of External No or Internal Medical Devices Month and year none received flu vaccine Received a COVID Yes: j&J one [employer] no boosters vaccine? Lives With spouse,children Patient Discharge Return Home Plan Description Do You Have Any No Spiritual Beliefs That May Affect Your HC Choices? Do You Have Any No Cultural Practices That May Affect Your HC Choices? Emergency Contact Jimbo Roberts Name Emergency Contact [phone] Phone Number Advance Directives? No Advance Directives No on File Power of Supervisor [employer]ines Road No
== END 2024-09-16 11:30 | disposition home or self-care (01) ==
LOC: OR 15:37 → AC 16:27
PROVIDERS: PCP Student in an Organized Health Care Education/Training Program; Referring Provider Obstetrics & Gynecology Gynecology; Visit Provider Obstetrics & Gynecology Gynecology
PROC: 0USG4ZZ Reposition Vagina, Percutaneous Endoscopic Approach (ICD-10-PCS; CPT 57425; principal; 2024-09-15 11:45)
DX: N81.10 Cystocele, unspecified (principal); N81.9 Female genital prolapse, unspecified; Z85.3 Personal history of malignant neoplasm of breast; N36.41 Hypermobility of urethra; N39.46 Mixed incontinence; N32.81 Overactive bladder; N95.2 Postmenopausal atrophic vaginitis
CPT/HCPCS: 57425; S2900; 82962; C1781; J0131; J0690; J1100; J1171; J1885; J2405; J2704; J2765; J3010

== ENCOUNTER → 2024-10-05 09:29 | Outpatient (CLI) | payer OTHER, SELFPAY ==
[2024-09-15 16:41] VITALS: BMI 31.3
== END ==
PROVIDERS: PCP Student in an Organized Health Care Education/Training Program; Visit Provider Student in an Organized Health Care Education/Training Program
DX: N36.41 Hypermobility of urethra (principal)
CPT/HCPCS: 87077; 87086; 87186

== ENCOUNTER → 2024-11-16 17:44 | Outpatient (CLI) | payer OTHER, SELFPAY ==
[2024-10-05 09:36] VITALS: BMI 31.3
--- NOTE | 2024-11-16 17:44 | DI.MG.S_ITS ---
MM screening mammo BI: 11/16/2024. BI-RADS: 2 CLINICAL: 59-year old female for bilateral screening mammogram. No Tyrer-Cuzick risk score calculation due to the patient's personal history of breast cancer. Patient reports a history of left breast carcinoma diagnosed at age 56. Status-post left lumpectomy with radiation therapy. No first-degree family history of breast cancer. Patient was diagnosed within the last 5 years. The patient had a prior left breast biopsy. PRIOR EXAMS 10/29/2023, 08/14/2022, 04/24/2021, 04/04/2021, MAMMOGRAPHY TECHNIQUE: 2D and 3D (tomosynthesis) digital mammographic views obtained, with additional images as needed for full coverage. Current study was also evaluated with a Computer Aided Detection (CAD) system. DENSITY B. There are scattered areas of fibroglandular density. MAMMOGRAPHY FINDINGS Right: Benign-appearing calcifications noted on the right. There are no suspicious masses, calcifications, or other findings in the breast. No significant change from comparison. Left: Surgical clips present on the left. Benign-appearing asymmetry noted on the left. There are no suspicious masses, calcifications, or other findings in the breast. No significant change from comparison. IMPRESSION: * No evidence of malignancy with benign findings. RECOMMENDATIONS Bilateral * Annual screening mammography. OVERALL ASSESSMENT CATEGORY BI-RADS-2: Benign. The [employer] recommends annual screening mammography beginning at age 40 for women with average risk of breast cancer. ELECTRONICALLY SIGNED: Jordana Jackman M.D. on 11/17/2024 at 12:36:54 PM PT Interpreting Station ID: [id number]
== END ==
LOC: MAMMO 17:44
PROVIDERS: PCP Student in an Organized Health Care Education/Training Program; Referring Provider Student in an Organized Health Care Education/Training Program; Visit Provider Student in an Organized Health Care Education/Training Program
DX: Z12.31 Encounter for screening mammogram for malignant neoplasm of breast (principal); Z85.3 Personal history of malignant neoplasm of breast
CPT/HCPCS: 77063; 77067

== ENCOUNTER → 2024-12-11 13:15 | Outpatient (CLI) | payer OTHER, SELFPAY ==
[2024-10-05 09:36] VITALS: BMI 31.3
--- NOTE | 2024-12-11 13:17 | DI.CT.S_ITS ---
PROCEDURE: CT IVP A/P W/WO INDICATIONS: Microscopic hematuria TECHNIQUE: Optional 5 mm thick noncontrast images acquired from the diaphragm to the symphysis pubis. After the administration of intravenous contrast, 5 mm thick images acquired from the diaphragm to the symphysis pubis after a 10-minute delay. 2 mm thick coronal and sagittal reformats were then performed of the kidneys and ureters. For radiation dose reduction, the following was used: automated exposure control, adjustment of mA and/or kV according to patient size. COMPARISON: None. FINDINGS: Image quality: Diagnostic. Kidneys and Ureters: Both kidneys are normal in size, without hydronephrosis or nephrolithiasis. No perinephric fat stranding. There is normal bilateral renal enhancement. Renal calyces appear normal in morphology when filled with contrast. Opacified portions of both ureters demonstrate normal caliber Bladder: Bladder wall thickness is normal. No calcified bladder stones. OTHER: Lower chest: Unremarkable. Liver: No solid mass. Gallbladder: No radiopaque gallstones or wall thickening. Biliary ducts: No biliary dilation. Pancreas: No ductal dilation. Spleen: Size is within normal limits. Adrenal Glands: No adrenal nodules. Stomach and Bowel: Normal colonic caliber, without significant wall thickening. Peritoneum: No abnormal intraperitoneal fluid. No free air. Ventral Wall: No hernia. Abdominal Nodes: No retroperitoneal or mesenteric adenopathy by size criteria. Vessels: Aorta and inferior vena cava are normal in size. PELVIS: Pelvic Organs: Unremarkable. Pelvic Nodes: No enlarged lymph nodes. Miscellaneous: No inguinal hernias are seen. Normal appendix found right lower quadrant. Bones: No aggressive osseous abnormality. IMPRESSION: No nephrolithiasis or filling defects within the opacified renal collecting system or ureters. Several retroperitoneal and pelvic phleboliths are noted, separate from the course of the ureters on postcontrast imaging. Therefore these do not represent ureteral calculi. Dictated by: Neville Wen M.D. on 12/11/2024 at 16:24 Approved by: Neville Wen M.D. on 12/11/2024 at 16:27
[2024-12-11 13:39] LABS: Estimated Glomerular Filt Rate > 60 mL/min (>60)
== END ==
PROVIDERS: PCP Student in an Organized Health Care Education/Training Program; Referring Provider Student in an Organized Health Care Education/Training Program; Visit Provider Physician Assistant
DX: R31.29 Other microscopic hematuria (principal)
CPT/HCPCS: 36415; 74178; 82565; Q9967

== ENCOUNTER → 2025-01-05 09:51 | Outpatient (CLI) | payer OTHER, SELFPAY ==
[2024-10-05 09:36] VITALS: BMI 31.3
[2025-01-05 10:17] LABS: Add Manual Diff / Slide Review NO; Hematocrit 40.0 % (36-46); Hemoglobin 13.6 g/dL (12.0-16.0); Lymphocytes Absolute Auto 1600 /uL (1100-4500); Mean Corpuscular HGB Conc 33.9 % (30-36); Mean Corpuscular Hemoglobin 30.2 PG (26-34); Mean Corpuscular Volume 89.0 fL (80-100); Platelet Count 263 X10^3/uL (150-400)
[2025-01-05 10:27] LABS: Hemoglobin A1C% w Est Avg Glu 5.9 % (4.0-6.0)
[2025-01-05 10:44] LABS: Alanine Aminotransferase 23 IU/L (<35); Albumin 4.4 g/dL (3.5-5.0); Albumin Globulin Ratio 1.7 (1.0-2.8); Alkaline Phosphatase 52 U/L (38-126); Blood Urea Nitrogen 18 mg/dL (7-17); Calcium 9.8 mg/dL (8.4-10.2); Carbon Dioxide 27 mmol/L (22-32); Chloride 105 mmol/L (98-107); Cholesterol 182 mg/dL (140-199); Estimated Glomerular Filt Rate > 60 mL/min (>60); Globulin 2.6 g/dL (1.7-4.1); Glucose 128 mg/dL (70-99); HDL Cholesterol 81 mg/dL (40-60); HEMOLYSIS < 15 (0-50); Potassium 4.3 mmol/L (3.4-5.1); Sodium 141 mmol/L (137-145); Total Protein 7.0 g/dL (6.3-8.2); Triglycerides 106 mg/dL (35-150)
[2025-01-05 12:38] LABS: Appearance Urine UA CLEAR; Bilirubin Urine UA NEGATIVE (NEGATIVE); Color Urine UA YELLOW; Glucose Urine UA NEGATIVE (Negative); Ketones Urine UA NEGATIVE (NEGATIVE); Leukocyte Esterase Urine UA NEGATIVE (NEGATIVE); Nitrite Urine UA NEGATIVE (Negative); Occult Blood Urine UA NEGATIVE (Negative); Protein Urine UA NEGATIVE (Negative); Specific Gravity Urine UA 1.020 (1.000-1.035); Urobilinogen Urine UA 0.2 E.U./dL (0.2)
[2025-01-05 12:52] LABS: pH Urine UA 6.0 (4.5-8.0)
[2025-01-05 13:02] LABS: Culture Indicated Urine Cult Not Indicated
[2025-01-05 13:57] LABS: Microalbumi Creatinin Ratio Ur 9.0 ug/mg CR (<30)
== END ==
PROVIDERS: PCP Student in an Organized Health Care Education/Training Program; Referring Provider Student in an Organized Health Care Education/Training Program; Visit Provider Student in an Organized Health Care Education/Training Program
DX: E11.9 Type 2 diabetes mellitus without complications (principal); E66.9 Obesity, unspecified; N39.0 Urinary tract infection, site not specified
CPT/HCPCS: 36415; 80053; 80061; 81001; 82043; 82570; 83036; 85025